=== PATIENT | male | born 1960 | race Caucasian/White ===

== ENCOUNTER 2018-09-16 19:21 | Emergency (ER) | payer MEDICAID ==
[~2018-09-16] VITALS: Ht 193 cm; Wt 100.0 kg
[2018-09-16 22:26] LABS: BASOPHILS % 1.3 % (0.0-2.0); EOSINOPHILS % 3.2 % (0.0-5.0); HEMATOCRIT. 42.8 % (42.0-52.0); HEMOGLOBIN. 14.8 g/dL (14.0-18.0); MEAN CORPUSCULAR HEMOGLOBIN 32.9 pg (28.0-32.0); MEAN CORPUSCULAR VOLUME 95.5 fL (80.0-94.0); MEAN PLATELET VOLUME 7.6 fl (7.4-10.4); MONOCYTES % 13.4 % (2.0-8.0); NEUTROPHILS % 51.1 % (40.0-76.0); PLATELET 251 x1000/uL (130-400); RED BLOOD CELL COUNT 4.48 mill/uL (4.7-6.1); RED CELL DISTRIBUTION WIDTH 14.3 % (11.6-14.6)
[2018-09-16 22:29] LABS: CHLORIDE 106 mEq/L (98-107)
[2018-09-16 23:48] VITALS: BP 142/86
== END 2018-09-16 23:49 | disposition home or self-care (01) ==
LOC: ER 19:21
DX: Z00.00 Encounter for general adult medical examination without abnormal findings (principal); I48.91 Unspecified atrial fibrillation; F12.10 Cannabis abuse, uncomplicated; F17.210 Nicotine dependence, cigarettes, uncomplicated
CPT/HCPCS: 36415; 80048; 83735; 84484; 93005; 99284

== ENCOUNTER 2018-12-16 02:16 | Inpatient (IN) | payer MEDICAID ==
[~2018-12-16] VITALS: Ht 193 cm; Wt 96.2 kg
[2018-12-16] MEDS ORDERED: ATOR-2 PO (02:30)
[2018-12-16] MEDS ORDERED: CARV12.545 PO (02:30)
[2018-12-16] MEDS ORDERED: ASPI-1393 PO (02:30)
[2018-12-16] MEDS ORDERED: RIVA20TA PO (02:30)
[2018-12-16] MEDS ORDERED: SACU1TAB PO (02:30)
[2018-12-16] MEDS ORDERED: LISI2.5T47 PO (02:33)
[2018-12-16] MEDS ORDERED: NORT25CA PO (02:33)
[2018-12-16] MEDS ORDERED: ASPIRIN 81MG TABLET PO ONE (03:15)
[2018-12-16] MEDS ORDERED: FUROSEMIDE 40MG/4ML VIAL IVP ONE (03:15)
[2018-12-16] MEDS ORDERED: NITROGLYCERIN OINT 1GM/INCH UDPKT TD ONE (03:15)
[2018-12-16 04:00] LABS: BASOPHILS % 0.6 % (0.0-2.0); EOSINOPHILS % 3.4 % (0.0-5.0); HEMOGLOBIN. 13.2 g/dL (14.0-18.0); LYMPHOCYTES % 9.1 % (20.0-50.0); MEAN CORPUSCULAR HEMOGLOBIN 33.2 pg (28.0-32.0); MEAN CORPUSCULAR VOLUME 98.1 fL (80.0-94.0); MONOCYTES % 13.5 % (2.0-8.0); NEUTROPHILS % 73.4 % (40.0-76.0); PLATELET 183 x1000/uL (130-400); RED BLOOD CELL COUNT 3.97 mill/uL (4.7-6.1)
[2018-12-16 04:03] LABS: CHLORIDE 108 mEq/L (98-107)
[2018-12-16] MEDS ORDERED: AZITHROMYCIN 500 MG in DEXT 5% WATER 250 ML IV ONE (05:45)
[2018-12-16] MEDS ORDERED: CEFTRIAXONE 1 G PREMIX 50 ML IV ONE (05:45)
[2018-12-16 07:41] LABS: *BARBITURATES SCREEN URINE NEGATIVE (NEGATIVE); *BENZODIAZEPINES SCREEN URINE NEGATIVE (NEGATIVE)
[2018-12-16 07:42] LABS: *AMPHETAMINES SCREEN URINE NEGATIVE (NEGATIVE); *COCAINE SCREEN URINE NEGATIVE (NEGATIVE); METHADONE URINE SCREEN NEGATIVE (NEGATIVE); OPIATES URINE SCREEN NEGATIVE (NEGATIVE); PHENCYCLIDINE URINE SCREEN NEGATIVE (NEGATIVE)
[2018-12-16 07:43] LABS: CANNABINOID URINE SCREEN NEGATIVE (NEGATIVE)
[2018-12-16 08:00] VITALS: BP 130/86
[2018-12-16 09:25] VITALS: BP 97/72
[2018-12-16] MEDS ORDERED: ACET-2853 PO (09:56)
[2018-12-16] MEDS ORDERED: ONDANSETRON HCL 4MG/2ML INJ IV PRN (10:30)
[2018-12-16] MEDS: ACETAMINOPHEN 325MG TABLET PO PRN ×2 (11:10→21:07)
[2018-12-16] MEDS: FUROSEMIDE 40MG/4ML VIAL IVP SCH (11:10)
[2018-12-16 12:00] VITALS: BP 105/67
[2018-12-16] MEDS ORDERED: ENOXAPARIN 40MG/0.4ML SYR SUBCUT SCH (12:00)
[2018-12-16] MEDS ORDERED: IPRATROPIUM/ALBUTEROL 0.5-3(2.5)MG/3ML NEB HHN PRN (12:30)
[2018-12-16] MEDS: GUAIFENESIN 600MG ER TABLET PO SCH ×2 (12:38→21:02)
[2018-12-16] MEDS ORDERED: NON FORMULARY PATIENT HOME MED XX SCH (12:45)
[2018-12-16 13:39] LABS: CLARITY URINE CLEAR (CLEAR); COLOR URINE YELLOW (YELLOW); KETONES URINE NEGATIVE (NEGATIVE); LEUKOCYTE ESTERASE URINE NEGATIVE (NEGATIVE); NITRITE URINE NEGATIVE (NEGATIVE); OCCULT BLOOD URINE NEGATIVE (NEGATIVE); PROTEIN URINE NEGATIVE (NEGATIVE); SPECIFIC GRAVITY URINE 1.009 (1.005-1.030)
[2018-12-16] MEDS: CARVEDILOL 6.25 MG TABLET PO SCH ×2 (13:55→21:01)
[2018-12-16 16:00] VITALS: BP 148/88
[2018-12-16] MEDS: RIVAROXABAN 20 MG TABLET PO SCH (17:13)
[2018-12-16] MEDS: IPRATROPIUM/ALBUTEROL 0.5-3(2.5)MG/3ML NEB HHN SCH ×2 (17:17→20:07)
[2018-12-16] MEDS: ACETYLCYSTEINE 100MG/ML 10% VIAL 4ML INH SCH (17:18)
[2018-12-16 20:00] VITALS: BP 120/86
[2018-12-16] MEDS: ATORVASTATIN CALCIUM 40MG TABLET PO SCH (21:02)
[2018-12-16] MEDS: SACUBITRIL/VALSARTAN 24/26 TAB PO SCH (21:02)
[2018-12-16] MEDS: ALPRAZOLAM 0.5 MG TABLET PO PRN (21:02)
[2018-12-17] VITALS: BP 124/79
[2018-12-17] MEDS: ACETYLCYSTEINE 100MG/ML 10% VIAL 4ML INH SCH ×3 (00:15→16:16)
[2018-12-17] MEDS: IPRATROPIUM/ALBUTEROL 0.5-3(2.5)MG/3ML NEB HHN SCH ×5 (00:15→20:47)
[2018-12-17 04:00] VITALS: BP 122/86
[2018-12-17] MEDS: ALPRAZOLAM 0.5 MG TABLET PO PRN ×2 (05:39→21:15)
[2018-12-17] MEDS: CEFTRIAXONE 1 G PREMIX 50 ML IV SCH (05:40)
[2018-12-17] MEDS: AZITHROMYCIN 500 MG in DEXT 5% WATER 250 ML IV SCH (05:40)
[2018-12-17 07:16] LABS: HEMATOCRIT. 44.2 % (42.0-52.0); HEMOGLOBIN. 15.2 g/dL (14.0-18.0); MEAN CORPUSCULAR HEMOGLOBIN 33.8 pg (28.0-32.0); MEAN CORPUSCULAR VOLUME 98.1 fL (80.0-94.0); MEAN PLATELET VOLUME 8.6 fl (7.4-10.4); PLATELET 196 x1000/uL (130-400); RED BLOOD CELL COUNT 4.51 mill/uL (4.7-6.1); RED CELL DISTRIBUTION WIDTH 14.8 % (11.6-14.6)
[2018-12-17 07:30] LABS: CHLORIDE 101 mEq/L (98-107)
[2018-12-17 07:36] LABS: LDL CHOLESTEROL 77 mg/dL (5-100)
[2018-12-17 07:38] LABS: HDL CHOLESTEROL 73 mg/dL (40-59)
[2018-12-17 08:00] VITALS: BP 102/70
[2018-12-17] MEDS: ASPIRIN 81MG TABLET PO SCH (08:36)
[2018-12-17] MEDS: GUAIFENESIN 600MG ER TABLET PO SCH ×2 (08:36→20:47)
[2018-12-17] MEDS: SACUBITRIL/VALSARTAN 24/26 TAB PO SCH ×2 (08:36→20:45)
[2018-12-17] MEDS: FUROSEMIDE 40MG/4ML VIAL IVP SCH (08:36)
[2018-12-17] MEDS: CARVEDILOL 12.5MG TABLET PO SCH ×2 (08:36→20:47)
[2018-12-17 11:43] LABS: PLATELET ESTIMATE NORMAL
[2018-12-17 12:00] VITALS: BP 98/86
[2018-12-17 16:00] VITALS: BP 100/64
[2018-12-17] MEDS ORDERED: BENZONATATE 100MG CAPSULE PO PRN (16:00)
[2018-12-17] MEDS: RIVAROXABAN 20 MG TABLET PO SCH (17:26)
[2018-12-17 20:00] VITALS: BP 102/43
[2018-12-17] MEDS: ATORVASTATIN CALCIUM 40MG TABLET PO SCH (20:47)
[2018-12-18] VITALS: BP 106/56
[2018-12-18] MEDS: ACETYLCYSTEINE 100MG/ML 10% VIAL 4ML INH SCH ×3 (00:53→15:46)
[2018-12-18] MEDS: IPRATROPIUM/ALBUTEROL 0.5-3(2.5)MG/3ML NEB HHN SCH ×6 (00:53→20:00)
[2018-12-18 04:00] VITALS: BP 103/59
[2018-12-18] MEDS: CEFTRIAXONE 1 G PREMIX 50 ML IV SCH (05:22)
[2018-12-18] MEDS: AZITHROMYCIN 500 MG in DEXT 5% WATER 250 ML IV SCH (06:31)
[2018-12-18 07:34] LABS: HEMATOCRIT. 44.7 % (42.0-52.0); HEMOGLOBIN. 15.3 g/dL (14.0-18.0); MEAN CORPUSCULAR HEMOGLOBIN 33.6 pg (28.0-32.0); MEAN CORPUSCULAR VOLUME 97.9 fL (80.0-94.0); MEAN PLATELET VOLUME 8.4 fl (7.4-10.4); PLATELET 200 x1000/uL (130-400); RED BLOOD CELL COUNT 4.57 mill/uL (4.7-6.1); RED CELL DISTRIBUTION WIDTH 14.9 % (11.6-14.6)
[2018-12-18 07:55] LABS: CHLORIDE 102 mEq/L (98-107)
[2018-12-18 08:00] VITALS: BP 87/64
[2018-12-18] MEDS: SACUBITRIL/VALSARTAN 24/26 TAB PO SCH ×2 (08:57→22:11)
[2018-12-18] MEDS: GUAIFENESIN 600MG ER TABLET PO SCH ×2 (08:57→22:11)
[2018-12-18] MEDS: ASPIRIN 81MG TABLET PO SCH (08:57)
[2018-12-18] MEDS: CARVEDILOL 12.5MG TABLET PO SCH ×2 (08:58→22:13)
[2018-12-18] MEDS: FUROSEMIDE 40MG/4ML VIAL IVP SCH (09:00)
[2018-12-18 09:37] LABS: PLATELET ESTIMATE NORMAL
[2018-12-18 12:00] VITALS: BP 110/60
[2018-12-18 16:00] VITALS: BP 107/69
[2018-12-18] MEDS: RIVAROXABAN 20 MG TABLET PO SCH (17:14)
[2018-12-18 20:00] VITALS: BP 110/77
[2018-12-18] MEDS: ATORVASTATIN CALCIUM 40MG TABLET PO SCH (22:11)
[2018-12-19] VITALS: BP 107/83
[2018-12-19] MEDS: IPRATROPIUM/ALBUTEROL 0.5-3(2.5)MG/3ML NEB HHN SCH ×3 (01:19→09:25)
[2018-12-19] MEDS: ACETYLCYSTEINE 100MG/ML 10% VIAL 4ML INH SCH ×2 (01:20→09:25)
[2018-12-19 04:00] VITALS: BP 101/72
[2018-12-19] MEDS: ALPRAZOLAM 0.5 MG TABLET PO PRN (04:09)
[2018-12-19 06:25] LABS: HEMATOCRIT. 45.6 % (42.0-52.0); HEMOGLOBIN. 15.4 g/dL (14.0-18.0); MEAN CORPUSCULAR VOLUME 97.8 fL (80.0-94.0); MEAN PLATELET VOLUME 8.7 fl (7.4-10.4); PLATELET 208 x1000/uL (130-400); RED BLOOD CELL COUNT 4.66 mill/uL (4.7-6.1); RED CELL DISTRIBUTION WIDTH 14.9 % (11.6-14.6)
[2018-12-19 06:38] LABS: CHLORIDE 104 mEq/L (98-107)
[2018-12-19 08:00] VITALS: BP 113/77
[2018-12-19] MEDS: CARVEDILOL 12.5MG TABLET PO SCH (08:20)
[2018-12-19] MEDS: SACUBITRIL/VALSARTAN 24/26 TAB PO SCH (08:20)
[2018-12-19] MEDS: ASPIRIN 81MG TABLET PO SCH (08:20)
[2018-12-19] MEDS: GUAIFENESIN 600MG ER TABLET PO SCH (08:20)
[2018-12-19] MEDS ORDERED: AZITHROMYCIN 500 MG TABLET PO SCH (09:00)
[2018-12-19 09:59] LABS: PLATELET ESTIMATE NORMAL
[2018-12-19] MEDS ORDERED: METHYLPREDNISOLONE SOD SUCC 40 MG/ML VIAL IV NR (11:00)
[2018-12-19 12:00] VITALS: BP 108/84
[2018-12-19 12:31] VITALS: BP 108/84
== END 2018-12-19 14:05 | disposition home or self-care (01) | DRG 140 ==
LOC: ER 02:16 → 5WST 05:44 → EDBEDREQTM 05:46 → EDBEDREQ 05:46 → ENRESERV 07:23
PROVIDERS: ADMIT Internal Medicine; ATTEND Internal Medicine
DX: J44.0 Chronic obstructive pulmonary disease with (acute) lower respiratory infection (principal); J96.00 Acute respiratory failure, unspecified whether with hypoxia or hypercapnia; I50.43 Acute on chronic combined systolic (congestive) and diastolic (congestive) heart failure; J18.9 Pneumonia, unspecified organism; I95.9 Hypotension, unspecified; E87.8 Other disorders of electrolyte and fluid balance, not elsewhere classified; R65.10 Systemic inflammatory response syndrome (SIRS) of non-infectious origin without acute organ dysfunction; I11.0 Hypertensive heart disease with heart failure; I48.2 Chronic atrial fibrillation; Z79.01 Long term (current) use of anticoagulants; I83.93 Asymptomatic varicose veins of bilateral lower extremities; G51.0 Bell's palsy; I87.2 Venous insufficiency (chronic) (peripheral); J98.11 Atelectasis; I25.5 Ischemic cardiomyopathy; D64.9 Anemia, unspecified; E78.5 Hyperlipidemia, unspecified; F17.200 Nicotine dependence, unspecified, uncomplicated; F41.9 Anxiety disorder, unspecified; I25.10 Atherosclerotic heart disease of native coronary artery without angina pectoris; I25.2 Old myocardial infarction; Z95.5 Presence of coronary angioplasty implant and graft; Z82.49 Family history of ischemic heart disease and other diseases of the circulatory system; Z82.3 Family history of stroke; Z71.6 Tobacco abuse counseling
CPT/HCPCS: 36415; 71045; 80048; 80061; 80305; 81003; 83605; 83735; 83880; 84145; 84443; 84484; 93005; 93306; 94640; 94667; 96374; 97161; 99285; J0456; J0696; J1650; J1940; J2920; J7060; J7608; J7620

== ENCOUNTER 2019-04-16 14:01 | Emergency (ER) | payer MEDICAID ==
[~2019-04-16] VITALS: Ht 193 cm; Wt 100.0 kg
[~2019-04-16 14:01] MED LIST: ACET-2853 PO; ASPI-1393 PO; ATOR-2 PO; CARV12.545 PO; NORT25CA PO; RIVA20TA PO; SACU1TAB PO
[2019-04-16] MEDS ORDERED: TRAMADOL 50MG TABLET PO ONE (14:30)
[2019-04-16 16:46] VITALS: BP 129/82
[2019-04-16] MEDS ORDERED: RIVAROXABAN 10 MG TABLET PO SCH (17:00)
== END 2019-04-16 16:54 | disposition home or self-care (01) ==
LOC: ER 14:01
DX: I82.812 Embolism and thrombosis of superficial veins of left lower extremity (principal); I11.0 Hypertensive heart disease with heart failure; I50.9 Heart failure, unspecified; I48.91 Unspecified atrial fibrillation; Z79.01 Long term (current) use of anticoagulants
CPT/HCPCS: 93970; 99284; Z7610

== ENCOUNTER 2019-05-21 11:18 | Emergency (ER) | payer MEDICAID ==
[~2019-05-21] VITALS: Ht 193 cm; Wt 100.0 kg
[~2019-05-21 11:18] MED LIST changes: -ACET-2853 PO; +ACET650T37 PO; -ASPI-1393 PO; +ASPI-1497 PO
[2019-05-21 12:22] VITALS: BP 149/77
== END 2019-05-21 13:31 | disposition home or self-care (01) ==
LOC: ER 11:18
DX: I83.92 Asymptomatic varicose veins of left lower extremity (principal); S80.02XA Contusion of left knee, initial encounter; W22.8XXA Striking against or struck by other objects, initial encounter; Y93.89 Activity, other specified; Y92.39 Other specified sports and athletic area as the place of occurrence of the external cause; R03.0 Elevated blood-pressure reading, without diagnosis of hypertension; I50.9 Heart failure, unspecified; I48.91 Unspecified atrial fibrillation; Z79.01 Long term (current) use of anticoagulants; Z79.82 Long term (current) use of aspirin; Z79.899 Other long term (current) drug therapy
CPT/HCPCS: 99282

== ENCOUNTER 2019-11-14 01:18 | Inpatient (IN) | payer MEDICAID ==
[~2019-11-14] VITALS: Ht 193 cm; Wt 91.6 kg
[2019-11-14] MEDS ORDERED: FUROSEMIDE 40MG/4ML VIAL IV ONE (03:15)
[2019-11-14 03:20] LABS: HEMATOCRIT. 48.3 % (42.0-52.0); HEMOGLOBIN. 16.8 g/dL (14.0-18.0); MEAN CORPUSCULAR VOLUME 100.9 fL (80.0-94.0); MEAN PLATELET VOLUME 8.1 fl (7.4-10.4); PLATELET 185 x1000/uL (130-400); RED BLOOD CELL COUNT 4.79 mill/uL (4.7-6.1); RED CELL DISTRIBUTION WIDTH 15.6 % (11.6-14.6)
[2019-11-14 03:30] LABS: CHLORIDE 98 mEq/L (98-107)
[2019-11-14 05:00] LABS: PLATELET ESTIMATE NORMAL
[2019-11-14] MEDS: METOPROLOL TARTRATE 5MG/5ML VIAL IV SCH ×3 (05:27→05:42)
[2019-11-14] MEDS ORDERED: ACETAMINOPHEN 325MG TABLET PO PRN (06:45)
[2019-11-14] MEDS ORDERED: IPRATROPIUM/ALBUTEROL 0.5-3(2.5)MG/3ML NEB ORI PRN (06:45)
[2019-11-14] MEDS ORDERED: GUAIFENESIN 200MG/10ML SUGAR FREE UDC PO PRN (06:45)
[2019-11-14] MEDS ORDERED: ONDANSETRON HCL 4MG/2ML INJ IV PRN (06:45)
[2019-11-14] MEDS ORDERED: KETOROLAC 15MG/ML VIAL IV PRN (06:45)
[2019-11-14] MEDS ORDERED: NITROGLYCERIN 0.4MG TABLET SL SL PRN (06:45)
[2019-11-14] MEDS ORDERED: MAGNESIUM/ALUMINUM HYDROXIDE/SIMETHICONE 30ML UDC PO PRN (06:45)
[2019-11-14] MEDS ORDERED: CLONIDINE 0.1MG TABLET PO PRN (06:45)
[2019-11-14] MEDS ORDERED: DOCUSATE SODIUM 100MG CAPSULE PO PRN (06:45)
[2019-11-14 07:01] LABS: ETHANOL BLOOD 12 mg/dL
[2019-11-14 07:03] LABS: TOTAL IRON BINDING CAPACITY 285 ug/dL (250-450)
[2019-11-14 07:20] LABS: FOLIC ACID (FOLATE) SERUM 10.3 ng/mL (>5.38)
[2019-11-14] MEDS ORDERED: FUROSEMIDE 40MG/4ML VIAL IVP SCH (08:00)
[2019-11-14] MEDS: ASPIRIN 325MG EC TABLET PO SCH (08:54)
[2019-11-14] MEDS: FAMOTIDINE 20MG TABLET PO SCH ×2 (09:00→21:21)
[2019-11-14] MEDS: GUAIFENESIN/DM 600MG/30MG ER TAB 12HR PO SCH ×2 (09:00→21:21)
[2019-11-14] MEDS: ZINC SULFATE 220 MG ( 50 ) CAPSULE PO SCH (09:00)
[2019-11-14] MEDS: ASCORBIC ACID 500 MG TABLET PO SCH ×2 (09:00→21:22)
[2019-11-14 09:30] LABS: *AMPHETAMINES SCREEN URINE NEGATIVE (NEGATIVE); *BARBITURATES SCREEN URINE NEGATIVE (NEGATIVE); *BENZODIAZEPINES SCREEN URINE NEGATIVE (NEGATIVE); *COCAINE SCREEN URINE NEGATIVE (NEGATIVE)
[2019-11-14 09:31] LABS: CANNABINOID URINE SCREEN PRESUMTIVE POSITIVE (NEGATIVE); METHADONE URINE SCREEN NEGATIVE (NEGATIVE); OPIATES URINE SCREEN NEGATIVE (NEGATIVE); PHENCYCLIDINE URINE SCREEN NEGATIVE (NEGATIVE)
[2019-11-14] MEDS: CARVEDILOL 6.25 MG TABLET PO SCH ×2 (10:30→21:22)
[2019-11-14] MEDS: DILTIAZEM HCL 60MG TABLET PO SCH ×2 (12:10→17:42)
[2019-11-14] MEDS: NITROGLYCERIN OINT 1GM/INCH UDPKT TD SCH ×2 (12:40→21:21)
[2019-11-14 14:42] LABS: CREATINE KINASE MB FRACTION 2.6 ng/mL (0.5-3.6)
[2019-11-14 15:40] VITALS: BP_SYST 116; BP_SYST 148; BP_DIAS 68; BP_DIAS 82
[2019-11-14] MEDS ORDERED: CARV3.1242 PO (15:42)
[2019-11-14 15:43] VITALS: BP 116/82
[2019-11-14] MEDS: RIVAROXABAN 20 MG TABLET PO SCH (17:41)
[2019-11-14] MEDS: FUROSEMIDE 100MG/10ML VIAL IV SCH (17:42)
[2019-11-14 20:00] VITALS: BP 118/79
[2019-11-14] MEDS: ZOLPIDEM TARTRATE 5MG TABLET PO PRN (21:21)
[2019-11-15] VITALS: BP 120/99
[2019-11-15] MEDS: DILTIAZEM HCL 60MG TABLET PO SCH ×4 (00:24→18:00)
[2019-11-15 00:41] LABS: CREATINE KINASE MB FRACTION 2.5 ng/mL (0.5-3.6)
[2019-11-15 04:00] VITALS: BP 105/60
[2019-11-15] MEDS: FUROSEMIDE 100MG/10ML VIAL IV SCH ×2 (05:48→18:06)
[2019-11-15] MEDS: NITROGLYCERIN OINT 1GM/INCH UDPKT TD SCH ×3 (05:56→22:00)
[2019-11-15 07:18] LABS: CHLORIDE 92 mEq/L (98-107)
[2019-11-15 07:31] LABS: HEMATOCRIT. 47.3 % (42.0-52.0); HEMOGLOBIN. 16.5 g/dL (14.0-18.0); MEAN CORPUSCULAR HEMOGLOBIN 35.3 pg (28.0-32.0); MEAN CORPUSCULAR VOLUME 101.5 fL (80.0-94.0); MEAN PLATELET VOLUME 8.8 fl (7.4-10.4); PLATELET 181 x1000/uL (130-400); RED BLOOD CELL COUNT 4.66 mill/uL (4.7-6.1); RED CELL DISTRIBUTION WIDTH 15.7 % (11.6-14.6)
[2019-11-15 07:37] LABS: PHOSPHORUS 2.9 mg/dL (2.5-4.9)
[2019-11-15 08:00] VITALS: BP 102/76
[2019-11-15] MEDS: GUAIFENESIN/DM 600MG/30MG ER TAB 12HR PO SCH ×2 (08:14→20:49)
[2019-11-15] MEDS: ASCORBIC ACID 500 MG TABLET PO SCH ×2 (08:15→20:49)
[2019-11-15] MEDS: ASPIRIN 325MG EC TABLET PO SCH (08:15)
[2019-11-15] MEDS: ZINC SULFATE 220 MG ( 50 ) CAPSULE PO SCH (08:15)
[2019-11-15] MEDS: FAMOTIDINE 20MG TABLET PO SCH ×2 (08:15→20:49)
[2019-11-15] MEDS: CARVEDILOL 6.25 MG TABLET PO SCH ×2 (08:16→20:49)
[2019-11-15] MEDS: POTASSIUM CHLORIDE 10MEQ TABLET SR PO SCH (08:16)
[2019-11-15 12:00] VITALS: BP 132/92
[2019-11-15 13:28] LABS: PLATELET ESTIMATE NORMAL
[2019-11-15 16:00] VITALS: BP 102/69
[2019-11-15] MEDS: RIVAROXABAN 20 MG TABLET PO SCH (18:05)
[2019-11-15 20:31] VITALS: BP 114/78
[2019-11-15] MEDS: ZOLPIDEM TARTRATE 5MG TABLET PO PRN (20:49)
[2019-11-16] VITALS: BP 91/54
[2019-11-16] MEDS: DILTIAZEM HCL 60MG TABLET PO SCH ×4 (00:46→17:24)
[2019-11-16 04:00] VITALS: BP 118/73
[2019-11-16] MEDS: ACETAMINOPHEN 325MG TABLET PO PRN ×2 (04:49→20:05)
[2019-11-16] MEDS: FUROSEMIDE 100MG/10ML VIAL IV SCH (06:09)
[2019-11-16] MEDS: NITROGLYCERIN OINT 1GM/INCH UDPKT TD SCH ×3 (06:44→20:05)
[2019-11-16 07:25] LABS: HEMOGLOBIN. 16.2 g/dL (14.0-18.0); MEAN CORPUSCULAR VOLUME 101.3 fL (80.0-94.0); MEAN PLATELET VOLUME 9.2 fl (7.4-10.4); PLATELET 171 x1000/uL (130-400); RED BLOOD CELL COUNT 4.63 mill/uL (4.7-6.1); RED CELL DISTRIBUTION WIDTH 15.2 % (11.6-14.6)
[2019-11-16 07:42] LABS: CHLORIDE 93 mEq/L (98-107)
[2019-11-16 08:00] VITALS: BP 98/73
[2019-11-16] MEDS ORDERED: POTASSIUM CHLORIDE 20MEQ TABLET SR PO SCH (09:00)
[2019-11-16] MEDS: CARVEDILOL 6.25 MG TABLET PO SCH ×2 (09:00→20:11)
[2019-11-16] MEDS: POTASSIUM CHLORIDE 10MEQ TABLET SR PO SCH (09:19)
[2019-11-16] MEDS: GUAIFENESIN/DM 600MG/30MG ER TAB 12HR PO SCH ×2 (09:19→20:04)
[2019-11-16] MEDS: ZINC SULFATE 220 MG ( 50 ) CAPSULE PO SCH (09:19)
[2019-11-16] MEDS: ASCORBIC ACID 500 MG TABLET PO SCH ×2 (09:19→20:04)
[2019-11-16] MEDS: FAMOTIDINE 20MG TABLET PO SCH ×2 (09:19→20:04)
[2019-11-16] MEDS: ASPIRIN 325MG EC TABLET PO SCH (09:19)
[2019-11-16 12:00] VITALS: BP 94/71
[2019-11-16 13:46] LABS: NUCLEATED RED BLOOD CELLS 1 /100 WBC
[2019-11-16 13:47] LABS: PLATELET ESTIMATE NORMAL
[2019-11-16 16:00] VITALS: BP 100/60
[2019-11-16] MEDS: RIVAROXABAN 20 MG TABLET PO SCH (16:48)
[2019-11-16] MEDS: FUROSEMIDE 20MG TABLET PO SCH (16:48)
[2019-11-16 19:53] VITALS: BP 106/75
[2019-11-16] MEDS: ZOLPIDEM TARTRATE 5MG TABLET PO PRN (21:39)
[2019-11-17 00:05] VITALS: BP 85/63
[2019-11-17] MEDS: ACETAMINOPHEN 325MG TABLET PO PRN (04:15)
[2019-11-17 04:31] VITALS: BP 92/63
[2019-11-17] MEDS: DILTIAZEM HCL 60MG TABLET PO SCH ×5 (06:00→23:10)
[2019-11-17] MEDS: NITROGLYCERIN OINT 1GM/INCH UDPKT TD SCH ×3 (06:11→22:00)
[2019-11-17 07:02] VITALS: BP 91/64
[2019-11-17] MEDS: CARVEDILOL 6.25 MG TABLET PO SCH ×2 (08:55→20:44)
[2019-11-17] MEDS: FUROSEMIDE 20MG TABLET PO SCH ×2 (08:55→17:10)
[2019-11-17] MEDS: ZINC SULFATE 220 MG ( 50 ) CAPSULE PO SCH (09:00)
[2019-11-17] MEDS: POTASSIUM CHLORIDE 10MEQ TABLET SR PO SCH (09:00)
[2019-11-17] MEDS: FAMOTIDINE 20MG TABLET PO SCH ×2 (09:00→21:00)
[2019-11-17] MEDS: ASCORBIC ACID 500 MG TABLET PO SCH ×2 (09:00→20:44)
[2019-11-17] MEDS: ASPIRIN 325MG EC TABLET PO SCH (09:00)
[2019-11-17] MEDS: GUAIFENESIN/DM 600MG/30MG ER TAB 12HR PO SCH ×2 (09:00→20:44)
[2019-11-17] MEDS: RIVAROXABAN 20 MG TABLET PO SCH (17:09)
[2019-11-17 20:00] VITALS: BP 126/64
[2019-11-18 00:52] VITALS: BP 130/73
[2019-11-18 04:00] VITALS: BP 104/69
[2019-11-18] MEDS: DILTIAZEM HCL 60MG TABLET PO SCH ×2 (05:01→12:00)
[2019-11-18] MEDS: NITROGLYCERIN OINT 1GM/INCH UDPKT TD SCH ×2 (05:02→14:00)
[2019-11-18 08:00] VITALS: BP 102/71
[2019-11-18] MEDS: CARVEDILOL 6.25 MG TABLET PO SCH (09:00)
[2019-11-18] MEDS: ZINC SULFATE 220 MG ( 50 ) CAPSULE PO SCH (09:34)
[2019-11-18] MEDS: ASCORBIC ACID 500 MG TABLET PO SCH (09:34)
[2019-11-18] MEDS: GUAIFENESIN/DM 600MG/30MG ER TAB 12HR PO SCH (09:35)
[2019-11-18] MEDS: FUROSEMIDE 20MG TABLET PO SCH (09:35)
[2019-11-18] MEDS: POTASSIUM CHLORIDE 10MEQ TABLET SR PO SCH (09:35)
[2019-11-18] MEDS: ASPIRIN 325MG EC TABLET PO SCH (09:35)
[2019-11-18] MEDS ORDERED: FAMOTIDINE 10MG TABLET PO SCH (10:00)
[2019-11-18 12:00] VITALS: BP 107/74
[2019-11-18 16:00] VITALS: BP 116/93
[2019-11-18 16:09] VITALS: BP 116/93
== END 2019-11-18 16:35 | disposition home or self-care (01) | DRG 194 ==
LOC: ER 01:18 → 6WST 05:02 → EDBEDREQ 05:06 → ENRESERV 13:48
PROVIDERS: ADMIT Internal Medicine; ATTEND Internal Medicine
DX: I11.0 Hypertensive heart disease with heart failure (principal); I50.43 Acute on chronic combined systolic (congestive) and diastolic (congestive) heart failure; J96.91 Respiratory failure, unspecified with hypoxia; E87.1 Hypo-osmolality and hyponatremia; F10.10 Alcohol abuse, uncomplicated; E78.5 Hyperlipidemia, unspecified; I25.10 Atherosclerotic heart disease of native coronary artery without angina pectoris; I48.20 Chronic atrial fibrillation, unspecified; F12.10 Cannabis abuse, uncomplicated; J44.9 Chronic obstructive pulmonary disease, unspecified; Z20.828 Contact with and (suspected) exposure to other viral communicable diseases; E87.6 Hypokalemia; E87.5 Hyperkalemia; I25.5 Ischemic cardiomyopathy; R74.0 Nonspecific elevation of levels of transaminase and lactic acid dehydrogenase [LDH]; Z86.73 Personal history of transient ischemic attack (TIA), and cerebral infarction without residual deficits; Z82.3 Family history of stroke; Z82.49 Family history of ischemic heart disease and other diseases of the circulatory system; Z79.01 Long term (current) use of anticoagulants; Z91.14 Patient's other noncompliance with medication regimen; I25.2 Old myocardial infarction; Z79.82 Long term (current) use of aspirin; Z79.899 Other long term (current) drug therapy; Z71.51 Drug abuse counseling and surveillance of drug abuser; Z71.41 Alcohol abuse counseling and surveillance of alcoholic; E80.6 Other disorders of bilirubin metabolism
CPT/HCPCS: 36415; 71045; 80048; 80053; 80305; 80320; 82550; 82553; 82607; 82746; 83036; 83540; 83550; 83735; 83880; 84100; 84484; 85025; 87070; 87635; 93005; 93306; 93970; 99285; J1885; J1940; J3490; G0480

== ENCOUNTER 2020-04-14 09:41 | Inpatient (IN) | payer MEDICAID ==
[~2020-04-14] VITALS: Ht 193 cm; Wt 106.6 kg
[~2020-04-14 09:41] MED LIST changes: +CARV3.1242 PO
[2020-04-14 10:26] LABS: HEMATOCRIT. 42.7 % (42.0-52.0); HEMOGLOBIN. 14.6 g/dL (14.0-18.0); MEAN CORPUSCULAR HEMOGLOBIN 36.9 pg (28.0-32.0); MEAN CORPUSCULAR VOLUME 107.7 fL (80.0-94.0); MEAN PLATELET VOLUME 10.3 fl (7.4-10.4); PLATELET 133 x1000/uL (130-400); RED BLOOD CELL COUNT 3.96 mill/uL (4.7-6.1); RED CELL DISTRIBUTION WIDTH 15.1 % (11.6-14.6)
[2020-04-14 10:29] LABS: CHLORIDE 99 mEq/L (98-107)
[2020-04-14] MEDS ORDERED: FUROSEMIDE 40MG/4ML VIAL IVP SCH (10:30)
[2020-04-14] MEDS ORDERED: MORPHINE SULFATE 4 MG/ML CPJ (NOT FOR IM USE) IV STA (10:40)
[2020-04-14] MEDS ORDERED: ONDANSETRON HCL 4MG/2ML INJ IV STA (10:40)
[2020-04-14] MEDS ORDERED: AMIODARONE HCL 150 MG in DEXT 5% WATER 100 ML IV ONE ×2 (10:45→11:45)
[2020-04-14] MEDS ORDERED: AMIODARONE HCL 900 MG in DEXT 5% WATER 482 ML IV PRN ×2 (11:45→12:00)
[2020-04-14] MEDS ORDERED: NITROGLYCERIN 0.4MG TABLET SL SL PRN (12:45)
[2020-04-14] MEDS ORDERED: ACETAMINOPHEN 325MG TABLET PO PRN ×2 (12:45)
[2020-04-14] MEDS ORDERED: GUAIFENESIN 200MG/10ML SUGAR FREE UDC PO PRN (12:45)
[2020-04-14] MEDS ORDERED: DOCUSATE SODIUM 100MG CAPSULE PO PRN (12:45)
[2020-04-14] MEDS ORDERED: MAGNESIUM/ALUMINUM HYDROXIDE/SIMETHICONE 30ML UDC PO PRN (12:45)
[2020-04-14] MEDS ORDERED: CLONIDINE 0.1MG TABLET PO PRN (12:45)
[2020-04-14] MEDS ORDERED: IPRATROPIUM/ALBUTEROL 0.5-3(2.5)MG/3ML NEB NEB PRN (12:45)
[2020-04-14] MEDS ORDERED: ONDANSETRON HCL 4MG/2ML INJ IV PRN (12:45)
[2020-04-14 13:05] LABS: PLATELET ESTIMATE NORMAL
[2020-04-14 13:10] LABS: *AMPHETAMINES SCREEN URINE NEGATIVE (NEGATIVE); CANNABINOID URINE SCREEN PRESUMTIVE POSITIVE (NEGATIVE); OPIATES URINE SCREEN PRESUMTIVE POSITIVE (NEGATIVE)
[2020-04-14 13:11] LABS: *BARBITURATES SCREEN URINE NEGATIVE (NEGATIVE); *BENZODIAZEPINES SCREEN URINE NEGATIVE (NEGATIVE); *COCAINE SCREEN URINE NEGATIVE (NEGATIVE)
[2020-04-14 13:14] LABS: METHADONE URINE SCREEN NEGATIVE (NEGATIVE)
[2020-04-14 13:15] LABS: PHENCYCLIDINE URINE SCREEN NEGATIVE (NEGATIVE)
[2020-04-14 13:45] LABS: HEPATITIS A AB IGM NEGATIVE (NEGATIVE)
[2020-04-14] MEDS ORDERED: DILTIAZEM HCL 5MG/ML 5ML VIAL IV NR (13:45)
[2020-04-14] MEDS ORDERED: DILTIAZEM HCL 125 MG in DEXT 5% WATER 100 ML IV SCH (14:00)
[2020-04-14] MEDS: DILTIAZEM HCL 125 MG in DEXT 5% WATER 100 ML IV SCH (14:06)
[2020-04-14 14:28] LABS: VITAMIN B12 SERUM 1146 pg/mL (211-911)
[2020-04-14 15:08] LABS: HEPATITIS B SURFACE ANTIGEN NEGATIVE
[2020-04-14 15:44] VITALS: BP 129/84
[2020-04-14 16:00] VITALS: BP 129/84
[2020-04-14] MEDS ORDERED: TRAM150C25 PO (16:12)
[2020-04-14] MEDS ORDERED: MELO-106 PO (16:13)
[2020-04-14] MEDS ORDERED: DILT240C94 PO (16:17)
[2020-04-14] MEDS ORDERED: LOSA25TA26 PO (16:19)
[2020-04-14] MEDS ORDERED: GABA-531 PO (16:19)
[2020-04-14] MEDS ORDERED: FAMO40TA7 PO (16:20)
[2020-04-14] MEDS ORDERED: GUAI400T11 PO (16:21)
[2020-04-14] MEDS ORDERED: BENZ100C86 MT (16:22)
[2020-04-14] MEDS ORDERED: CARV6.2548 MT (16:23)
[2020-04-14] MEDS ORDERED: FURO40TA5 MT (16:25)
[2020-04-14] MEDS: KETOROLAC 15MG/ML VIAL IV PRN (17:17)
[2020-04-14] MEDS: RIVAROXABAN 20 MG TABLET PO SCH (17:20)
[2020-04-14] MEDS: DILTIAZEM HCL 30MG TABLET PO SCH (17:21)
[2020-04-14 18:00] VITALS: BP 131/85
[2020-04-14] MEDS ORDERED: DILTIAZEM HCL 60MG TABLET PO SCH (18:00)
[2020-04-14] MEDS ORDERED: INFLUENZA VACCINE 05/PF 0.5 ML VIAL IM ONE (19:15)
[2020-04-14 20:00] VITALS: BP 111/72
[2020-04-14] MEDS: LORAZEPAM 0.5MG TABLET PO PRN (21:33)
[2020-04-14] MEDS: ASCORBIC ACID 500 MG TABLET PO SCH (21:33)
[2020-04-14 22:00] VITALS: BP 121/61
[2020-04-14 23:21] VITALS: BP 112/82
[2020-04-14] MEDS ORDERED: ACET650T37 PO (23:48)
[2020-04-15] VITALS (13 sets, daily range): BP systolic 103–144; BP diastolic 67–83
[2020-04-15 00:48] LABS: CREATINE KINASE MB FRACTION 2.6 ng/mL (0.5-3.6)
[2020-04-15] MEDS: DILTIAZEM HCL 30MG TABLET PO SCH ×4 (05:28→21:35)
[2020-04-15] MEDS ORDERED: *PATIENT'S OWN MEDICATION STORAGE XX SCH (06:00)
[2020-04-15 06:26] LABS: HEMATOCRIT. 39.1 % (42.0-52.0); HEMOGLOBIN. 13.4 g/dL (14.0-18.0); MEAN CORPUSCULAR HEMOGLOBIN 37.2 pg (28.0-32.0); MEAN CORPUSCULAR VOLUME 108.7 fL (80.0-94.0); MEAN PLATELET VOLUME 10.2 fl (7.4-10.4); PLATELET 114 x1000/uL (130-400); RED BLOOD CELL COUNT 3.59 mill/uL (4.7-6.1)
[2020-04-15 06:31] LABS: CHLORIDE 97 mEq/L (98-107)
[2020-04-15 06:40] LABS: PHOSPHORUS 5.2 mg/dL (2.5-4.9)
[2020-04-15] MEDS ORDERED: POTASSIUM CHLORIDE 20MEQ TABLET SR PO NR (09:15)
[2020-04-15] MEDS ORDERED: CARVEDILOL 6.25 MG TABLET PO NR (09:15)
[2020-04-15] MEDS ORDERED: DILTIAZEM HCL 5MG/ML 5ML VIAL IV PRN (09:15)
[2020-04-15] MEDS ORDERED: FUROSEMIDE 20MG TABLET PO SCH (09:15)
[2020-04-15] MEDS: SPIRONOLACTONE 25MG TABLET PO SCH ×2 (09:25→17:39)
[2020-04-15] MEDS: ASCORBIC ACID 500 MG TABLET PO SCH ×2 (09:25→20:21)
[2020-04-15] MEDS: ASPIRIN 81MG TABLET PO SCH (09:25)
[2020-04-15] MEDS: ZINC SULFATE 220 MG ( 50 ) CAPSULE PO SCH (09:25)
[2020-04-15] MEDS: FUROSEMIDE 40MG/4ML VIAL IVP SCH ×2 (09:27→21:33)
[2020-04-15] MEDS: KETOROLAC 15MG/ML VIAL IV PRN ×2 (09:27→21:34)
[2020-04-15 12:43] LABS: PLATELET ESTIMATE DECREASED
[2020-04-15] MEDS: DILTIAZEM HCL 125 MG in DEXT 5% WATER 100 ML IV SCH (14:59)
[2020-04-15] MEDS: RIVAROXABAN 20 MG TABLET PO SCH (17:39)
[2020-04-15] MEDS: CARVEDILOL 6.25 MG TABLET PO SCH (20:22)
[2020-04-15] MEDS: ZOLPIDEM TARTRATE 5MG TABLET PO PRN (21:36)
[2020-04-16] VITALS (12 sets, daily range): BP systolic 98–141; BP diastolic 52–94
[2020-04-16] MEDS: DILTIAZEM HCL 30MG TABLET PO SCH (06:29)
[2020-04-16] MEDS: SPIRONOLACTONE 25MG TABLET PO SCH ×2 (06:30→18:13)
[2020-04-16 07:31] LABS: HEMATOCRIT. 39.4 % (42.0-52.0); HEMOGLOBIN. 13.5 g/dL (14.0-18.0); MEAN CORPUSCULAR VOLUME 108.4 fL (80.0-94.0); MEAN PLATELET VOLUME 10.6 fl (7.4-10.4); PLATELET 119 x1000/uL (130-400); RED BLOOD CELL COUNT 3.64 mill/uL (4.7-6.1)
[2020-04-16 08:49] LABS: CHLORIDE 97 mEq/L (98-107)
[2020-04-16 08:56] LABS: PHOSPHORUS 4.4 mg/dL (2.5-4.9)
[2020-04-16] MEDS: POTASSIUM CHLORIDE 20MEQ TABLET SR PO SCH (09:25)
[2020-04-16] MEDS: ASPIRIN 81MG TABLET PO SCH (09:25)
[2020-04-16] MEDS: LORAZEPAM 0.5MG TABLET PO PRN (09:25)
[2020-04-16] MEDS: CARVEDILOL 6.25 MG TABLET PO SCH (09:28)
[2020-04-16] MEDS: ASCORBIC ACID 500 MG TABLET PO SCH ×2 (09:28→22:02)
[2020-04-16] MEDS: ZINC SULFATE 220 MG ( 50 ) CAPSULE PO SCH (09:28)
[2020-04-16] MEDS: FUROSEMIDE 40MG/4ML VIAL IVP SCH ×2 (09:35→22:01)
[2020-04-16 10:29] LABS: PLATELET ESTIMATE SLIGHTLY DECREASED
[2020-04-16] MEDS ORDERED: DILTIAZEM HCL 125 MG in DEXT 5% WATER 100 ML IV SCH (11:00)
[2020-04-16] MEDS: KETOROLAC 15MG/ML VIAL IV PRN ×2 (11:12→22:00)
[2020-04-16] MEDS ORDERED: MAGNESIUM 2 G PREMIX 50 ML IV NR (12:30)
[2020-04-16] MEDS: DILTIAZEM HCL 90MG TABLET PO SCH ×2 (14:43→22:01)
[2020-04-16] MEDS: MAGNESIUM OXIDE 400MG TABLET PO SCH (18:13)
[2020-04-16] MEDS: RIVAROXABAN 20 MG TABLET PO SCH (18:13)
[2020-04-16] MEDS: CARVEDILOL 12.5MG TABLET PO SCH (22:08)
[2020-04-16] MEDS: ZOLPIDEM TARTRATE 5MG TABLET PO PRN (23:56)
[2020-04-17] VITALS (12 sets, daily range): BP systolic 101–164; BP diastolic 35–103
[2020-04-17] MEDS: KETOROLAC 15MG/ML VIAL IV PRN ×3 (04:02→20:33)
[2020-04-17] MEDS: SPIRONOLACTONE 25MG TABLET PO SCH ×2 (06:00→18:26)
[2020-04-17] MEDS: DILTIAZEM HCL 90MG TABLET PO SCH ×3 (06:00→18:42)
[2020-04-17 06:28] LABS: CHLORIDE 96 mEq/L (98-107); HEMATOCRIT. 41.7 % (42.0-52.0); HEMOGLOBIN. 14.3 g/dL (14.0-18.0); MEAN CORPUSCULAR HEMOGLOBIN 37.2 pg (28.0-32.0); MEAN CORPUSCULAR VOLUME 108.2 fL (80.0-94.0); MEAN PLATELET VOLUME 10.4 fl (7.4-10.4); PLATELET 115 x1000/uL (130-400); RED BLOOD CELL COUNT 3.85 mill/uL (4.7-6.1); RED CELL DISTRIBUTION WIDTH 15.2 % (11.6-14.6)
[2020-04-17] MEDS: ASPIRIN 81MG TABLET PO SCH (09:06)
[2020-04-17] MEDS: ZINC SULFATE 220 MG ( 50 ) CAPSULE PO SCH (09:06)
[2020-04-17] MEDS: MAGNESIUM OXIDE 400MG TABLET PO SCH (09:07)
[2020-04-17] MEDS: POTASSIUM CHLORIDE 20MEQ TABLET SR PO SCH (09:07)
[2020-04-17] MEDS: CARVEDILOL 12.5MG TABLET PO SCH ×2 (09:09→20:32)
[2020-04-17] MEDS: ASCORBIC ACID 500 MG TABLET PO SCH ×2 (09:26→20:32)
[2020-04-17] MEDS: FUROSEMIDE 40MG/4ML VIAL IVP SCH ×2 (10:34→21:48)
[2020-04-17] MEDS: LORAZEPAM 0.5MG TABLET PO PRN (10:59)
[2020-04-17 14:05] LABS: NUCLEATED RED BLOOD CELLS 2 /100 WBC; PLATELET ESTIMATE DECREASED
[2020-04-17] MEDS: MIDODRINE HCL 2.5MG TABLET PO SCH ×2 (15:33→17:37)
[2020-04-17] MEDS: RIVAROXABAN 20 MG TABLET PO SCH (17:33)
[2020-04-17] MEDS: ZOLPIDEM TARTRATE 5MG TABLET PO PRN (20:32)
[2020-04-18] VITALS: BP 133/80
[2020-04-18] MEDS: DILTIAZEM HCL 90MG TABLET PO SCH ×3 (00:33→14:00)
[2020-04-18] MEDS: LORAZEPAM 0.5MG TABLET PO PRN (00:33)
[2020-04-18] MEDS: SPIRONOLACTONE 25MG TABLET PO SCH (06:00)
[2020-04-18 06:03] LABS: HEMATOCRIT. 38.5 % (42.0-52.0); HEMOGLOBIN. 13.2 g/dL (14.0-18.0); MEAN CORPUSCULAR HEMOGLOBIN 37.5 pg (28.0-32.0); MEAN PLATELET VOLUME 10.4 fl (7.4-10.4); PLATELET 122 x1000/uL (130-400); RED BLOOD CELL COUNT 3.53 mill/uL (4.7-6.1); RED CELL DISTRIBUTION WIDTH 14.8 % (11.6-14.6)
[2020-04-18 08:00] VITALS: BP 147/94
[2020-04-18] MEDS: MIDODRINE HCL 2.5MG TABLET PO SCH ×2 (08:21→14:00)
[2020-04-18] MEDS: ASPIRIN 81MG TABLET PO SCH (08:50)
[2020-04-18] MEDS: ZINC SULFATE 220 MG ( 50 ) CAPSULE PO SCH (08:51)
[2020-04-18] MEDS: MAGNESIUM OXIDE 400MG TABLET PO SCH (08:51)
[2020-04-18] MEDS: ASCORBIC ACID 500 MG TABLET PO SCH (08:51)
[2020-04-18] MEDS: POTASSIUM CHLORIDE 20MEQ TABLET SR PO SCH (08:51)
[2020-04-18] MEDS: CARVEDILOL 12.5MG TABLET PO SCH (08:51)
[2020-04-18] MEDS: FUROSEMIDE 40MG/4ML VIAL IVP SCH (09:11)
[2020-04-18] MEDS: KETOROLAC 15MG/ML VIAL IV PRN (09:12)
[2020-04-18 12:00] VITALS: BP 125/64
[2020-04-18 13:12] LABS: PLATELET ESTIMATE SLIGHTLY DECREASED
[2020-04-18 15:25] VITALS: BP 125/64
[2020-04-18] MEDS ORDERED: FUROSEMIDE 40MG TABLET PO SCH (18:00)
== END 2020-04-18 16:15 | disposition home or self-care (01) | DRG 190 ==
LOC: ER 09:46 → 5EST 12:26 → EDBEDREQSVC 12:29 → EDBEDREQ 12:29 → EDBEDREQTM 12:29 → ENRESERV 14:30
PROVIDERS: ADMIT Internal Medicine; ATTEND Internal Medicine
DX: I21.4 Non-ST elevation (NSTEMI) myocardial infarction (principal); E87.1 Hypo-osmolality and hyponatremia; E83.42 Hypomagnesemia; I31.3 Pericardial effusion (noninflammatory); I50.43 Acute on chronic combined systolic (congestive) and diastolic (congestive) heart failure; I48.19 Other persistent atrial fibrillation; I34.0 Nonrheumatic mitral (valve) insufficiency; F10.10 Alcohol abuse, uncomplicated; D69.6 Thrombocytopenia, unspecified; F12.90 Cannabis use, unspecified, uncomplicated; I11.0 Hypertensive heart disease with heart failure; R79.89 Other specified abnormal findings of blood chemistry; I95.9 Hypotension, unspecified; I25.10 Atherosclerotic heart disease of native coronary artery without angina pectoris; I42.9 Cardiomyopathy, unspecified; J44.9 Chronic obstructive pulmonary disease, unspecified; R17 Unspecified jaundice; R74.01 Elevation of levels of liver transaminase levels; I25.2 Old myocardial infarction; Z79.01 Long term (current) use of anticoagulants; Z79.899 Other long term (current) drug therapy; Z86.73 Personal history of transient ischemic attack (TIA), and cerebral infarction without residual deficits
CPT/HCPCS: 36415; 71045; 80048; 80053; 80061; 80305; 82550; 82553; 82607; 82746; 83036; 83540; 83550; 83615; 83735; 83880; 84100; 84145; 84484; 85025; 85379; 86705; 86709; 86803; 87340; 93005; 93306; 93970; 99285; J0282; J1885; J1940; J2270; J2405; J3475; J3490; J7060

== ENCOUNTER 2020-06-03 21:05 | Inpatient (IN) | payer MEDICAID, OTHER ==
[~2020-06-03] VITALS: Ht 193 cm; Wt 98.0 kg
[~2020-06-03 21:05] MED LIST changes: +BENZ100C86 MT; -CARV12.545 PO; -CARV3.1242 PO; +COR6 PO; +DILT240C94 MT; +FAMO40TA7 PO; +FURO40TA5 PO; +GABA-532 PO; +GUAI400T11 PO; +LOSA25TA26 MT; +MELO-106 PO; +TRAM150C25 PO
[2020-06-03 21:51] LABS: HEMATOCRIT. 43.2 % (42.0-52.0); HEMOGLOBIN. 14.1 g/dL (14.0-18.0); MEAN CORPUSCULAR HEMOGLOBIN 34.8 pg (28.0-32.0); MEAN CORPUSCULAR VOLUME 106.4 fL (80.0-94.0); MEAN PLATELET VOLUME 8.9 fl (7.4-10.4); PLATELET 171 x1000/uL (130-400); RED BLOOD CELL COUNT 4.06 mill/uL (4.7-6.1)
[2020-06-03 21:55] LABS: CHLORIDE 105 mEq/L (98-107)
[2020-06-03 22:10] LABS: PLATELET ESTIMATE NORMAL
[2020-06-03] MEDS ORDERED: ASPIRIN 325MG EC TABLET PO ONE (22:15)
[2020-06-03] MEDS ORDERED: DILTIAZEM HCL 5MG/ML 5ML VIAL IV ONE (22:15)
[2020-06-03] MEDS ORDERED: HYDROCODONE/ACETAMINOPHEN 5/325MG TABLET PO ONE (22:15)
[2020-06-03] MEDS ORDERED: DILTIAZEM HCL 125 MG in DEXT 5% WATER 100 ML IV ONE (22:45)
[2020-06-03] MEDS ORDERED: FUROSEMIDE 40MG/4ML VIAL IVP NR (22:45)
[2020-06-03] MEDS ORDERED: ENOXAPARIN 100MG/ML SYR SUBCUT ONE (22:45)
[2020-06-03 22:59] LABS: INR 1.4; PROTHROMBIN TIME 14.3 sec (9.6-11.0)
[2020-06-04] MEDS ORDERED: CLONIDINE 0.1MG TABLET PO PRN
[2020-06-04] MEDS ORDERED: MAGNESIUM/ALUMINUM HYDROXIDE/SIMETHICONE 30ML UDC PO PRN
[2020-06-04] MEDS ORDERED: GUAIFENESIN 200MG/10ML SUGAR FREE UDC PO PRN
[2020-06-04] MEDS ORDERED: DIPHENHYDRAMINE 50MG/ML VIAL IV PRN
[2020-06-04] MEDS ORDERED: ACETAMINOPHEN 325MG TABLET PO PRN ×2
[2020-06-04] MEDS ORDERED: ONDANSETRON HCL 4MG/2ML INJ IV PRN
[2020-06-04] MEDS: HYDROCODONE/ACETAMINOPHEN 5/325MG TABLET PO PRN ×4 (03:52→20:22)
[2020-06-04] MEDS: SODIUM CHLORIDE 0.9% INJ 3ML FLUSH IVF SCH ×3 (06:15→22:00)
[2020-06-04] MEDS: CARVEDILOL 3.125 MG TABLET PO SCH ×2 (09:00→20:22)
[2020-06-04] MEDS: FUROSEMIDE 40MG/4ML VIAL IVP SCH ×2 (09:55→17:06)
[2020-06-04] MEDS: FAMOTIDINE 20MG TABLET PO SCH ×2 (09:56→20:25)
[2020-06-04 10:45] VITALS: BP 138/92
[2020-06-04] MEDS ORDERED: DILTIAZEM HCL 125 MG in DEXT 5% WATER 100 ML IV SCH (11:00)
[2020-06-04] MEDS ORDERED: SACU1TAB PO (11:02)
[2020-06-04 11:04] VITALS: BP 124/91
[2020-06-04] MEDS: DILTIAZEM HCL 125 MG in DEXT 5% WATER 100 ML IV SCH (11:27)
[2020-06-04] MEDS ORDERED: *PATIENT'S OWN MEDICATION STORAGE XX SCH (11:30)
[2020-06-04] MEDS ORDERED: ENOXAPARIN 120MG/0.8ML SYR SUBCUT SCH (12:00)
[2020-06-04 16:00] VITALS: BP 118/88
[2020-06-04 20:00] VITALS: BP 124/77
[2020-06-04] MEDS: ENOXAPARIN 100MG/ML SYR SUBCUT SCH (20:23)
[2020-06-04] MEDS: ZOLPIDEM TARTRATE 5MG TABLET PO PRN (21:47)
[2020-06-05] VITALS (18 sets, daily range): BP systolic 109–135; BP diastolic 60–99
[2020-06-05] MEDS: DILTIAZEM HCL 125 MG in DEXT 5% WATER 100 ML IV SCH ×2 (00:35→15:14)
[2020-06-05] MEDS: HYDROCODONE/ACETAMINOPHEN 5/325MG TABLET PO PRN ×3 (03:25→14:15)
[2020-06-05] MEDS: SODIUM CHLORIDE 0.9% INJ 3ML FLUSH IVF SCH ×3 (05:33→21:37)
[2020-06-05 06:35] LABS: CHLORIDE 103 mEq/L (98-107)
[2020-06-05 06:38] LABS: HEMATOCRIT. 42.7 % (42.0-52.0); HEMOGLOBIN. 14.4 g/dL (14.0-18.0); MEAN CORPUSCULAR VOLUME 106.6 fL (80.0-94.0); MEAN PLATELET VOLUME 9.7 fl (7.4-10.4); PLATELET 167 x1000/uL (130-400); RED CELL DISTRIBUTION WIDTH 14.7 % (11.6-14.6)
[2020-06-05] MEDS: FUROSEMIDE 40MG/4ML VIAL IVP SCH ×2 (08:45→15:55)
[2020-06-05] MEDS: CARVEDILOL 3.125 MG TABLET PO SCH ×2 (08:46→21:00)
[2020-06-05] MEDS: FAMOTIDINE 20MG TABLET PO SCH ×2 (08:46→21:36)
[2020-06-05] MEDS: ENOXAPARIN 100MG/ML SYR SUBCUT SCH (08:47)
[2020-06-05] MEDS: DILTIAZEM HCL 60MG TABLET PO SCH ×2 (14:14→21:36)
[2020-06-05 16:55] LABS: *AMPHETAMINES SCREEN URINE NEGATIVE (NEGATIVE); *BARBITURATES SCREEN URINE NEGATIVE (NEGATIVE); *BENZODIAZEPINES SCREEN URINE NEGATIVE (NEGATIVE); *COCAINE SCREEN URINE NEGATIVE (NEGATIVE); METHADONE URINE SCREEN NEGATIVE (NEGATIVE)
[2020-06-05 16:56] LABS: CANNABINOID URINE SCREEN PRESUMTIVE POSITIVE (NEGATIVE); OPIATES URINE SCREEN PRESUMTIVE POSITIVE (NEGATIVE); PHENCYCLIDINE URINE SCREEN NEGATIVE (NEGATIVE)
[2020-06-05] MEDS: ENOXAPARIN 80MG/0.8ML SYR SUBCUT SCH (21:35)
[2020-06-05 21:49] LABS: PLATELET ESTIMATE NORMAL
[2020-06-06] VITALS (18 sets, daily range): BP systolic 105–153; BP diastolic 61–103
[2020-06-06] MEDS: DILTIAZEM HCL 60MG TABLET PO SCH ×3 (05:15→22:34)
[2020-06-06] MEDS: HYDROCODONE/ACETAMINOPHEN 5/325MG TABLET PO PRN ×4 (05:16→18:56)
[2020-06-06] MEDS: SODIUM CHLORIDE 0.9% INJ 3ML FLUSH IVF SCH ×3 (05:21→21:11)
[2020-06-06 05:49] LABS: CHLORIDE 104 mEq/L (98-107)
[2020-06-06 06:07] LABS: HEMATOCRIT. 43.9 % (42.0-52.0); HEMOGLOBIN. 14.8 g/dL (14.0-18.0); MEAN CORPUSCULAR HEMOGLOBIN 35.8 pg (28.0-32.0); MEAN CORPUSCULAR VOLUME 106.3 fL (80.0-94.0); MEAN PLATELET VOLUME 10.2 fl (7.4-10.4); PLATELET 154 x1000/uL (130-400); RED BLOOD CELL COUNT 4.13 mill/uL (4.7-6.1); RED CELL DISTRIBUTION WIDTH 14.8 % (11.6-14.6)
[2020-06-06] MEDS: FAMOTIDINE 20MG TABLET PO SCH ×2 (08:48→20:56)
[2020-06-06] MEDS: CARVEDILOL 3.125 MG TABLET PO SCH (08:48)
[2020-06-06] MEDS: ENOXAPARIN 80MG/0.8ML SYR SUBCUT SCH (08:48)
[2020-06-06] MEDS: FUROSEMIDE 40MG/4ML VIAL IVP SCH ×2 (08:48→17:11)
[2020-06-06] MEDS: LOSARTAN POTASSIUM 25 MG TABLET PO SCH (13:01)
[2020-06-06 14:56] LABS: PLATELET ESTIMATE NORMAL
[2020-06-06] MEDS: CARVEDILOL 6.25 MG TABLET PO SCH (20:56)
[2020-06-06] MEDS: ENOXAPARIN 100MG/ML SYR SUBCUT SCH (21:09)
[2020-06-06] MEDS: DILTIAZEM HCL 125 MG in DEXT 5% WATER 100 ML IV SCH (21:11)
[2020-06-07] VITALS (12 sets, daily range): BP systolic 115–135; BP diastolic 45–89
[2020-06-07] MEDS: DILTIAZEM HCL 125 MG in DEXT 5% WATER 100 ML IV SCH (05:18)
[2020-06-07] MEDS: DILTIAZEM HCL 60MG TABLET PO SCH ×3 (05:25→22:39)
[2020-06-07] MEDS: HYDROCODONE/ACETAMINOPHEN 5/325MG TABLET PO PRN ×3 (05:25→20:59)
[2020-06-07] MEDS: SODIUM CHLORIDE 0.9% INJ 3ML FLUSH IVF SCH ×3 (05:26→21:10)
[2020-06-07 07:19] LABS: CHLORIDE 99 mEq/L (98-107)
[2020-06-07 07:34] LABS: HEMATOCRIT. 42.9 % (42.0-52.0); HEMOGLOBIN. 14.4 g/dL (14.0-18.0); MEAN CORPUSCULAR HEMOGLOBIN 35.6 pg (28.0-32.0); MEAN CORPUSCULAR VOLUME 105.8 fL (80.0-94.0); MEAN PLATELET VOLUME 9.7 fl (7.4-10.4); PLATELET 162 x1000/uL (130-400); RED BLOOD CELL COUNT 4.05 mill/uL (4.7-6.1); RED CELL DISTRIBUTION WIDTH 14.5 % (11.6-14.6)
[2020-06-07] MEDS: ENOXAPARIN 100MG/ML SYR SUBCUT SCH ×2 (08:37→21:00)
[2020-06-07] MEDS: FUROSEMIDE 40MG/4ML VIAL IVP SCH ×2 (08:37→17:46)
[2020-06-07] MEDS: CARVEDILOL 6.25 MG TABLET PO SCH ×2 (08:38→20:58)
[2020-06-07] MEDS: FAMOTIDINE 20MG TABLET PO SCH ×2 (08:38→20:57)
[2020-06-07] MEDS: LOSARTAN POTASSIUM 25 MG TABLET PO SCH (08:38)
[2020-06-07] MEDS ORDERED: REGADENOSON 0.4 MG/5 ML IV SCH (11:15)
[2020-06-07 14:26] LABS: PLATELET ESTIMATE NORMAL
[2020-06-07] MEDS: ZOLPIDEM TARTRATE 5MG TABLET PO PRN (22:40)
[2020-06-08] VITALS: BP 122/61
[2020-06-08 04:00] VITALS: BP 112/82
[2020-06-08] MEDS: DILTIAZEM HCL 60MG TABLET PO SCH (06:05)
[2020-06-08] MEDS: HYDROCODONE/ACETAMINOPHEN 5/325MG TABLET PO PRN ×2 (06:06→12:23)
[2020-06-08] MEDS: SODIUM CHLORIDE 0.9% INJ 3ML FLUSH IVF SCH (06:07)
[2020-06-08 07:33] LABS: CHLORIDE 102 mEq/L (98-107)
[2020-06-08 08:00] VITALS: BP 128/88
[2020-06-08 08:12] LABS: HEMATOCRIT. 41.2 % (42.0-52.0); HEMOGLOBIN. 13.9 g/dL (14.0-18.0); MEAN CORPUSCULAR HEMOGLOBIN 35.5 pg (28.0-32.0); MEAN CORPUSCULAR VOLUME 105.2 fL (80.0-94.0); MEAN PLATELET VOLUME 10.2 fl (7.4-10.4); PLATELET 152 x1000/uL (130-400); RED BLOOD CELL COUNT 3.91 mill/uL (4.7-6.1); RED CELL DISTRIBUTION WIDTH 14.5 % (11.6-14.6)
[2020-06-08] MEDS: FAMOTIDINE 20MG TABLET PO SCH (09:00)
[2020-06-08] MEDS: FUROSEMIDE 40MG/4ML VIAL IVP SCH (09:00)
[2020-06-08] MEDS: ENOXAPARIN 100MG/ML SYR SUBCUT SCH (09:00)
[2020-06-08] MEDS: CARVEDILOL 6.25 MG TABLET PO SCH (09:00)
[2020-06-08] MEDS ORDERED: REGADENOSON 0.4 MG/5 ML IV ONE (09:39)
[2020-06-08 12:00] VITALS: BP 119/102
[2020-06-08] MEDS ORDERED: DILTIAZEM HCL 60MG TABLET PO SCH (12:00)
[2020-06-08] MEDS ORDERED: FUROSEMIDE 40MG/4ML VIAL IVP NR (13:15)
[2020-06-08 14:47] VITALS: BP 114/76
[2020-06-08] MEDS ORDERED: ENOXAPARIN 100MG/ML SYR SUBCUT SCH ×2 (15:13→21:00)
[2020-06-08 17:17] LABS: PLATELET ESTIMATE NORMAL
[2020-06-08] MEDS ORDERED: FUROSEMIDE 40MG TABLET PO SCH (21:00)
[2020-06-08] MEDS ORDERED: LOSARTAN POTASSIUM 25 MG TABLET PO SCH (21:00)
[2020-06-08] MEDS ORDERED: CARVEDILOL 12.5MG TABLET PO SCH (21:00)
== END 2020-06-08 16:32 | disposition home or self-care (01) | DRG 194 ==
LOC: ER 21:05 → 3WST 23:11 → EDBEDREQ 23:28 → EDBEDREQSVC 23:53 → ENRESERV 06-04 08:59
PROVIDERS: ADMIT Internal Medicine; ATTEND Internal Medicine
DX: I11.0 Hypertensive heart disease with heart failure (principal); I50.23 Acute on chronic systolic (congestive) heart failure; I48.20 Chronic atrial fibrillation, unspecified; E66.01 Morbid (severe) obesity due to excess calories; I25.10 Atherosclerotic heart disease of native coronary artery without angina pectoris; J44.9 Chronic obstructive pulmonary disease, unspecified; E78.5 Hyperlipidemia, unspecified; I34.0 Nonrheumatic mitral (valve) insufficiency; I31.3 Pericardial effusion (noninflammatory); I42.9 Cardiomyopathy, unspecified; E80.6 Other disorders of bilirubin metabolism; Z20.822 Contact with and (suspected) exposure to COVID-19; F10.10 Alcohol abuse, uncomplicated; Y90.9 Presence of alcohol in blood, level not specified; I25.2 Old myocardial infarction; Z79.01 Long term (current) use of anticoagulants; Z86.73 Personal history of transient ischemic attack (TIA), and cerebral infarction without residual deficits; Z79.1 Long term (current) use of non-steroidal anti-inflammatories (NSAID); Z79.82 Long term (current) use of aspirin; Z82.3 Family history of stroke; Z82.49 Family history of ischemic heart disease and other diseases of the circulatory system; Z59.0 Homelessness; Z79.899 Other long term (current) drug therapy; Z68.26 Body mass index [BMI] 26.0-26.9, adult; I21.4 Non-ST elevation (NSTEMI) myocardial infarction
CPT/HCPCS: 36415; 71045; 78452; 80048; 80053; 80305; 83735; 83880; 84443; 84484; 85025; 87426; 93005; 93017; 97162; 99291; A9500; J1200; J1650; J1940; J2785; J3490; J7060

== ENCOUNTER 2020-06-15 19:03 | Inpatient (IN) | payer MEDICAID, OTHER ==
[~2020-06-15] VITALS: Ht 193 cm; Wt 99.8 kg
[2020-06-15] MEDS ORDERED: DILTIAZEM HCL 5MG/ML 5ML VIAL IV ONE (19:30)
[2020-06-15] MEDS ORDERED: NITROGLYCERIN 0.4MG TABLET SL SL PRN (19:30)
[2020-06-15] MEDS ORDERED: ASPIRIN 81MG TABLET PO ONE (19:30)
[2020-06-15] MEDS ORDERED: SODIUM CHLORIDE 0.9% 1,000 ML IV ONE (19:30)
[2020-06-15 19:56] LABS: HEMATOCRIT. 38.8 % (42.0-52.0); MEAN CORPUSCULAR HEMOGLOBIN 34.9 pg (28.0-32.0); MEAN CORPUSCULAR VOLUME 103.8 fL (80.0-94.0); MEAN PLATELET VOLUME 8.1 fl (7.4-10.4); PLATELET 176 x1000/uL (130-400); RED BLOOD CELL COUNT 3.74 mill/uL (4.7-6.1); RED CELL DISTRIBUTION WIDTH 14.3 % (11.6-14.6)
[2020-06-15 19:58] LABS: CHLORIDE 105 mEq/L (98-107)
[2020-06-15 20:00] LABS: INR 1.3; PARTIAL THROMBOPLASTIN TIME 29.5 sec (23.4-31.0)
[2020-06-15] MEDS ORDERED: DILTIAZEM HCL 60MG TABLET PO ONE (20:15)
[2020-06-15] MEDS ORDERED: ENOXAPARIN 100MG/ML SYR SUBCUT ONE (20:30)
[2020-06-15 20:55] LABS: PLATELET ESTIMATE NORMAL
[2020-06-15] MEDS ORDERED: MORPHINE SULFATE 4 MG/ML CPJ (NOT FOR IM USE) IV STA (20:58)
[2020-06-15] MEDS ORDERED: ONDANSETRON HCL 4MG/2ML INJ IV STA (20:58)
[2020-06-16] MEDS ORDERED: ONDANSETRON HCL 4MG/2ML INJ IV PRN
[2020-06-16] MEDS ORDERED: ACETAMINOPHEN 325MG TABLET PO PRN
[2020-06-16] MEDS: ZOLPIDEM TARTRATE 5MG TABLET PO PRN (02:00)
[2020-06-16] MEDS: FUROSEMIDE 40MG/4ML VIAL IVP SCH ×2 (09:52→17:48)
[2020-06-16] MEDS: CARVEDILOL 12.5MG TABLET PO SCH ×2 (09:52→20:25)
[2020-06-16] MEDS: ASPIRIN 81MG EC TABLET PO SCH (11:00)
[2020-06-16] MEDS: RIVAROXABAN 20 MG TABLET PO SCH (17:48)
[2020-06-16] MEDS: DIGOXIN 500MCG/2ML AMP IV SCH (17:48)
[2020-06-16] MEDS ORDERED: DIGOXIN 500MCG/2ML AMP IV SCH (18:00)
[2020-06-16] MEDS: ATORVASTATIN CALCIUM 40MG TABLET PO SCH (20:25)
[2020-06-16 22:16] VITALS: BP 124/94
[2020-06-17] VITALS: BP 101/73
[2020-06-17 04:00] VITALS: BP 118/84
[2020-06-17 08:00] VITALS: BP 119/77
[2020-06-17] MEDS: ASPIRIN 81MG EC TABLET PO SCH (08:30)
[2020-06-17] MEDS: CARVEDILOL 12.5MG TABLET PO SCH ×2 (08:30→20:48)
[2020-06-17] MEDS: FUROSEMIDE 40MG/4ML VIAL IVP SCH ×2 (08:30→17:50)
[2020-06-17 10:00] VITALS: BP 117/71
[2020-06-17 12:38] LABS: HEMATOCRIT. 39.3 % (42.0-52.0); HEMOGLOBIN. 13.2 g/dL (14.0-18.0); MEAN CORPUSCULAR HEMOGLOBIN 35.4 pg (28.0-32.0); MEAN CORPUSCULAR VOLUME 105.3 fL (80.0-94.0); MEAN PLATELET VOLUME 8.2 fl (7.4-10.4); PLATELET 170 x1000/uL (130-400); RED BLOOD CELL COUNT 3.74 mill/uL (4.7-6.1); RED CELL DISTRIBUTION WIDTH 14.2 % (11.6-14.6)
[2020-06-17 12:45] LABS: CHLORIDE 102 mEq/L (98-107)
[2020-06-17 13:28] LABS: PLATELET ESTIMATE NORMAL
[2020-06-17] MEDS: RIVAROXABAN 20 MG TABLET PO SCH (17:51)
[2020-06-17] MEDS: DIGOXIN 500MCG/2ML AMP IV SCH (17:51)
[2020-06-17 20:00] VITALS: BP 110/73
[2020-06-17] MEDS: ZOLPIDEM TARTRATE 5MG TABLET PO PRN (20:46)
[2020-06-17] MEDS: ATORVASTATIN CALCIUM 40MG TABLET PO SCH (20:48)
[2020-06-18] VITALS: BP 115/60
[2020-06-18 04:00] VITALS: BP 134/82
[2020-06-18 07:40] LABS: HEMATOCRIT. 41.3 % (42.0-52.0); HEMOGLOBIN. 13.9 g/dL (14.0-18.0); MEAN CORPUSCULAR HEMOGLOBIN 35.5 pg (28.0-32.0); MEAN CORPUSCULAR VOLUME 105.1 fL (80.0-94.0); MEAN PLATELET VOLUME 8.6 fl (7.4-10.4); PLATELET 178 x1000/uL (130-400); RED BLOOD CELL COUNT 3.93 mill/uL (4.7-6.1); RED CELL DISTRIBUTION WIDTH 14.2 % (11.6-14.6)
[2020-06-18 07:55] LABS: CHLORIDE 99 mEq/L (98-107)
[2020-06-18] MEDS: FUROSEMIDE 40MG/4ML VIAL IVP SCH ×2 (09:34→17:41)
[2020-06-18] MEDS: CARVEDILOL 12.5MG TABLET PO SCH ×2 (09:34→21:27)
[2020-06-18] MEDS: ASPIRIN 81MG EC TABLET PO SCH (09:34)
[2020-06-18] MEDS ORDERED: ZOLPIDEM TARTRATE 5MG TABLET PO PRN (12:00)
[2020-06-18] MEDS ORDERED: MAGNESIUM 2 G PREMIX 50 ML IV NR (13:00)
[2020-06-18] MEDS: RIVAROXABAN 20 MG TABLET PO SCH (17:41)
[2020-06-18 17:46] LABS: DIGOXIN 0.5 ng/mL (0.9-2.0)
[2020-06-18] MEDS: DIGOXIN 500MCG/2ML AMP IV SCH (19:11)
[2020-06-18] MEDS ORDERED: MAGNESIUM 1 G PREMIX 100 ML IV NR (19:45)
[2020-06-18 20:00] VITALS: BP 105/78
[2020-06-18] MEDS: ATORVASTATIN CALCIUM 40MG TABLET PO SCH (21:27)
[2020-06-18] MEDS: ZOLPIDEM TARTRATE 5MG TABLET PO PRN (21:27)
[2020-06-18] MEDS: POTASSIUM CHLORIDE 20MEQ TABLET SR PO SCH (21:32)
[2020-06-19] VITALS: BP 116/88
[2020-06-19 04:00] VITALS: BP_SYST 109; BP_SYST 116; BP_DIAS 88
[2020-06-19 07:05] LABS: CHLORIDE 100 mEq/L (98-107)
[2020-06-19 08:00] VITALS: BP 106/61
[2020-06-19] MEDS ORDERED: MAGNESIUM OXIDE 400MG TABLET PO SCH (09:00)
[2020-06-19] MEDS: FUROSEMIDE 40MG/4ML VIAL IVP SCH (09:09)
[2020-06-19] MEDS: ASPIRIN 81MG EC TABLET PO SCH (09:09)
[2020-06-19] MEDS: POTASSIUM CHLORIDE 20MEQ TABLET SR PO SCH (09:10)
[2020-06-19] MEDS: CARVEDILOL 12.5MG TABLET PO SCH (09:10)
[2020-06-19 12:00] VITALS: BP 95/67
[2020-06-19] MEDS ORDERED: POTA20TA82 PO (12:12)
[2020-06-19] MEDS ORDERED: COR12 PO (12:12)
[2020-06-19] MEDS ORDERED: LIP40 PO (12:12)
[2020-06-19] MEDS ORDERED: ASPI-1406 PO (12:12)
[2020-06-19] MEDS ORDERED: FURO-151 MT (12:12)
[2020-06-19] MEDS ORDERED: RIVA20TA PO (12:12)
[2020-06-19 14:19] VITALS: BP 95/67
[2020-06-19 21:20] LABS: PLATELET ESTIMATE NORMAL
== END 2020-06-19 15:05 | disposition home or self-care (01) | DRG 203 ==
LOC: ER 19:03 → EDBEDREQ 22:31 → ENRESERV 06-16 17:10 → CANRESERV 06-16 17:10 → ENRESERV 06-16 17:36 → 8WST 06-16 18:20
PROVIDERS: ADMIT Internal Medicine; ATTEND Internal Medicine
DX: M94.0 Chondrocostal junction syndrome [Tietze] (principal); J96.00 Acute respiratory failure, unspecified whether with hypoxia or hypercapnia; I50.23 Acute on chronic systolic (congestive) heart failure; E44.1 Mild protein-calorie malnutrition; E78.5 Hyperlipidemia, unspecified; F10.10 Alcohol abuse, uncomplicated; F12.90 Cannabis use, unspecified, uncomplicated; I11.0 Hypertensive heart disease with heart failure; I25.10 Atherosclerotic heart disease of native coronary artery without angina pectoris; I31.3 Pericardial effusion (noninflammatory); I48.20 Chronic atrial fibrillation, unspecified; J44.9 Chronic obstructive pulmonary disease, unspecified; R77.8 Other specified abnormalities of plasma proteins; I42.9 Cardiomyopathy, unspecified; I25.2 Old myocardial infarction; Z86.73 Personal history of transient ischemic attack (TIA), and cerebral infarction without residual deficits; Z68.26 Body mass index [BMI] 26.0-26.9, adult; Z79.899 Other long term (current) drug therapy; R65.11 Systemic inflammatory response syndrome (SIRS) of non-infectious origin with acute organ dysfunction
CPT/HCPCS: 36415; 71045; 80048; 80053; 80162; 83735; 83880; 84132; 84484; 85025; 93005; 93306; 96372; 96374; 96375; 99291; J1160; J1650; J1940; J2270; J2405; J3475; J3490; J7030

== ENCOUNTER 2020-07-11 04:26 | Inpatient (IN) | payer OTHER ==
[~2020-07-11] VITALS: Ht 185.4 cm; Wt 94.3 kg
[2020-07-11] VITALS (39 sets, daily range): BP systolic 106–157; BP diastolic 42–101
[~2020-07-11 04:26] MED LIST changes: +ASPI-1406 PO; +COR12 PO; -DILT240C94 MT; +FURO-151 MT; +LIP40 PO; +POTA20TA82 PO
[2020-07-11 04:59] LABS: HEMATOCRIT. 40.9 % (42.0-52.0); HEMOGLOBIN. 13.6 g/dL (14.0-18.0); MEAN CORPUSCULAR VOLUME 102.2 fL (80.0-94.0); MEAN PLATELET VOLUME 8.1 fl (7.4-10.4); PLATELET 188 x1000/uL (130-400); RED CELL DISTRIBUTION WIDTH 15.1 % (11.6-14.6)
[2020-07-11] MEDS ORDERED: DILTIAZEM HCL 5MG/ML 5ML VIAL IV ONE (05:00)
[2020-07-11 05:23] LABS: CHLORIDE 100 mEq/L (98-107)
[2020-07-11] MEDS ORDERED: DILTIAZEM HCL 125 MG in DEXT 5% WATER 100 ML IV ONE (05:30)
[2020-07-11] MEDS ORDERED: ASPIRIN 325MG EC TABLET PO ONE (05:45)
[2020-07-11] MEDS ORDERED: HEPARIN 25,000 UNITS PREMIX 250 ML IV ONE (05:45)
[2020-07-11] MEDS: DILTIAZEM HCL 125 MG in DEXT 5% WATER 100 ML IV NR ×2 (05:47→18:02)
[2020-07-11 05:49] LABS: NUCLEATED RED BLOOD CELLS 1 /100 WBC; PLATELET ESTIMATE NORMAL
[2020-07-11 06:51] LABS: INR 1.4; PARTIAL THROMBOPLASTIN TIME 28.5 sec (23.4-31.0); PROTHROMBIN TIME 14.6 sec (9.6-11.0)
[2020-07-11] MEDS ORDERED: HEPARIN 25,000 UNITS PREMIX 250 ML IV SCH (07:00)
[2020-07-11] MEDS: LORAZEPAM 1MG TABLET PO PRN ×2 (08:20→21:14)
[2020-07-11] MEDS ORDERED: HEPARIN BOLUS PRN aPTT <30 IV (12:00)
[2020-07-11] MEDS ORDERED: HEPARIN BOLUS PRN aPTT 30-44 IV (12:00)
[2020-07-11] MEDS ORDERED: GUAI-741 MT (14:59)
[2020-07-11] MEDS ORDERED: ONDANSETRON HCL 4MG/2ML INJ IV PRN (15:00)
[2020-07-11] MEDS ORDERED: DILT240C96 MT (15:00)
[2020-07-11 16:26] LABS: *AMPHETAMINES SCREEN URINE NEGATIVE (NEGATIVE); *BARBITURATES SCREEN URINE NEGATIVE (NEGATIVE); *BENZODIAZEPINES SCREEN URINE NEGATIVE (NEGATIVE); *COCAINE SCREEN URINE NEGATIVE (NEGATIVE); CANNABINOID URINE SCREEN PRESUMTIVE POSITIVE (NEGATIVE); PHENCYCLIDINE URINE SCREEN NEGATIVE (NEGATIVE)
[2020-07-11 16:27] LABS: METHADONE URINE SCREEN NEGATIVE (NEGATIVE); OPIATES URINE SCREEN NEGATIVE (NEGATIVE)
[2020-07-11] MEDS: FUROSEMIDE 40MG/4ML VIAL IVP SCH ×2 (17:56→18:02)
[2020-07-11] MEDS: ENOXAPARIN 100MG/ML SYR SUBCUT SCH (17:56)
[2020-07-11] MEDS ORDERED: *PATIENT'S OWN MEDICATION STORAGE XX SCH (19:00)
[2020-07-12] VITALS (74 sets, daily range): BP systolic 85–172; BP diastolic 35–114
[2020-07-12] MEDS: DILTIAZEM HCL 125 MG in DEXT 5% WATER 100 ML IV NR (00:47)
[2020-07-12] MEDS ORDERED: METOPROLOL TARTRATE 50MG TABLET PO SCH ×2 (01:00→09:00)
[2020-07-12 06:31] LABS: CHLORIDE 100 mEq/L (98-107)
[2020-07-12] MEDS: ENOXAPARIN 100MG/ML SYR SUBCUT SCH ×2 (06:39→17:32)
[2020-07-12] MEDS: FUROSEMIDE 40MG/4ML VIAL IVP SCH ×2 (07:22→17:32)
[2020-07-12] MEDS ORDERED: CARVEDILOL 12.5MG TABLET PO SCH ×2 (11:00→21:00)
[2020-07-12] MEDS: DILTIAZEM HCL 30MG TABLET PO SCH ×3 (12:00→17:39)
[2020-07-12 12:06] LABS: HEMATOCRIT. 42.2 % (42.0-52.0); HEMOGLOBIN. 14.1 g/dL (14.0-18.0); MEAN CORPUSCULAR HEMOGLOBIN 34.5 pg (28.0-32.0); MEAN CORPUSCULAR VOLUME 103.4 fL (80.0-94.0); PLATELET 168 x1000/uL (130-400); RED BLOOD CELL COUNT 4.08 mill/uL (4.7-6.1); RED CELL DISTRIBUTION WIDTH 14.9 % (11.6-14.6)
[2020-07-12 13:22] LABS: PLATELET ESTIMATE NORMAL
[2020-07-12] MEDS: DILTIAZEM HCL 125 MG in DEXT 5% WATER 100 ML IV PRN (14:07)
[2020-07-12] MEDS: ACETAMINOPHEN 325MG TABLET PO PRN (20:43)
[2020-07-12] MEDS: LORAZEPAM 1MG TABLET PO PRN (20:43)
[2020-07-12] MEDS: CARVEDILOL 12.5MG TABLET PO SCH (20:44)
[2020-07-13] VITALS (12 sets, daily range): BP systolic 101–143; BP diastolic 44–91
[2020-07-13] MEDS: DILTIAZEM HCL 30MG TABLET PO SCH ×5 (00:39→23:06)
[2020-07-13] MEDS: DILTIAZEM HCL 125 MG in DEXT 5% WATER 100 ML IV PRN (03:08)
[2020-07-13] MEDS: ENOXAPARIN 100MG/ML SYR SUBCUT SCH ×2 (05:54→17:03)
[2020-07-13] MEDS: FUROSEMIDE 40MG/4ML VIAL IVP SCH ×2 (08:15→17:02)
[2020-07-13] MEDS: CARVEDILOL 12.5MG TABLET PO SCH ×2 (08:15→20:39)
[2020-07-13 09:23] LABS: HEMATOCRIT. 39.3 % (42.0-52.0); HEMOGLOBIN. 13.3 g/dL (14.0-18.0); MEAN CORPUSCULAR HEMOGLOBIN 34.7 pg (28.0-32.0); MEAN CORPUSCULAR VOLUME 102.2 fL (80.0-94.0); MEAN PLATELET VOLUME 8.8 fl (7.4-10.4); PLATELET 166 x1000/uL (130-400); RED BLOOD CELL COUNT 3.85 mill/uL (4.7-6.1); RED CELL DISTRIBUTION WIDTH 14.8 % (11.6-14.6)
[2020-07-13 09:27] LABS: CHLORIDE 97 mEq/L (98-107)
[2020-07-13] MEDS ORDERED: POTASSIUM CHLORIDE 20MEQ/PACKET PO NR (10:30)
[2020-07-13] MEDS: MAGNESIUM OXIDE 400MG TABLET PO SCH (11:04)
[2020-07-13] MEDS ORDERED: DILTIAZEM HCL 125 MG in DEXT 5% WATER 100 ML IV SCH (11:30)
[2020-07-13] MEDS ORDERED: MAGNESIUM 2 G PREMIX 50 ML IV NR (11:30)
[2020-07-13 14:58] LABS: PLATELET ESTIMATE NORMAL
[2020-07-13] MEDS: LORAZEPAM 1MG TABLET PO PRN (20:39)
[2020-07-13] MEDS: ACETAMINOPHEN 325MG TABLET PO PRN (20:39)
[2020-07-14] VITALS (10 sets, daily range): BP systolic 109–137; BP diastolic 64–105
[2020-07-14] MEDS: DILTIAZEM HCL 30MG TABLET PO SCH ×2 (05:29→12:11)
[2020-07-14] MEDS: ENOXAPARIN 100MG/ML SYR SUBCUT SCH (05:30)
[2020-07-14 08:32] LABS: HEMATOCRIT. 41.1 % (42.0-52.0); MEAN CORPUSCULAR HEMOGLOBIN 34.7 pg (28.0-32.0); MEAN CORPUSCULAR VOLUME 102.2 fL (80.0-94.0); MEAN PLATELET VOLUME 9.4 fl (7.4-10.4); PLATELET 160 x1000/uL (130-400); RED BLOOD CELL COUNT 4.02 mill/uL (4.7-6.1); RED CELL DISTRIBUTION WIDTH 14.5 % (11.6-14.6)
[2020-07-14 08:44] LABS: CHLORIDE 99 mEq/L (98-107)
[2020-07-14] MEDS: MAGNESIUM OXIDE 400MG TABLET PO SCH (09:29)
[2020-07-14] MEDS: FUROSEMIDE 40MG/4ML VIAL IVP SCH (09:29)
[2020-07-14] MEDS: CARVEDILOL 12.5MG TABLET PO SCH (09:30)
[2020-07-14] MEDS ORDERED: POTASSIUM CHLORIDE 20MEQ TABLET SR PO NR (10:30)
[2020-07-14] MEDS: LORAZEPAM 1MG TABLET PO PRN (12:11)
[2020-07-14 13:43] LABS: PLATELET ESTIMATE NORMAL
[2020-07-14] MEDS ORDERED: RIVA20TA PO (15:05)
[2020-07-14] MEDS ORDERED: DILT240C96 MT (15:05)
[2020-07-14] MEDS ORDERED: FURO-151 MT (15:05)
[2020-07-14] MEDS ORDERED: COR6 PO (15:05)
[2020-07-14] MEDS ORDERED: CARVEDILOL 6.25 MG TABLET PO SCH (21:00)
[2020-07-15] MEDS ORDERED: POTASSIUM CHLORIDE 20MEQ TABLET SR PO SCH (09:00)
== END 2020-07-14 18:57 | disposition home or self-care (01) | DRG 190 ==
LOC: ER 04:26 → CVICU 06:25 → ENRESERV 13:12 → 3WST 07-12 15:53
PROVIDERS: ADMIT Internal Medicine; ATTEND Internal Medicine
DX: I21.4 Non-ST elevation (NSTEMI) myocardial infarction (principal); I11.0 Hypertensive heart disease with heart failure; I48.19 Other persistent atrial fibrillation; I50.23 Acute on chronic systolic (congestive) heart failure; I42.0 Dilated cardiomyopathy; E78.5 Hyperlipidemia, unspecified; J44.9 Chronic obstructive pulmonary disease, unspecified; E83.42 Hypomagnesemia; E87.6 Hypokalemia; I49.3 Ventricular premature depolarization; F41.9 Anxiety disorder, unspecified; I47.1 Supraventricular tachycardia; F12.90 Cannabis use, unspecified, uncomplicated; Z79.01 Long term (current) use of anticoagulants; Z79.84 Long term (current) use of oral hypoglycemic drugs; Z79.899 Other long term (current) drug therapy; Z79.82 Long term (current) use of aspirin; Z79.1 Long term (current) use of non-steroidal anti-inflammatories (NSAID); Z59.0 Homelessness; Z86.73 Personal history of transient ischemic attack (TIA), and cerebral infarction without residual deficits
CPT/HCPCS: 36415; 71045; 80048; 80053; 80305; 83735; 83880; 84484; 85025; 93005; 99291; J1644; J1650; J1940; J3475; J3490; J7060

== ENCOUNTER 2020-08-23 14:34 | Emergency (ER) | payer OTHER ==
[~2020-08-23] VITALS: Ht 193 cm; Wt 100.0 kg
[~2020-08-23 14:34] MED LIST changes: -ACET650T37 PO; +DILT240C96 MT; +GUAI-741 MT; -GUAI400T11 PO; -TRAM150C25 PO
[2020-08-23 17:28] VITALS: BP 140/111
== END 2020-08-23 18:54 | disposition home or self-care (01) ==
LOC: ER 14:34
DX: S80.02XA Contusion of left knee, initial encounter (principal); R55 Syncope and collapse; W06.XXXA Fall from bed, initial encounter; Y93.89 Activity, other specified; Y92.013 Bedroom of single-family (private) house as the place of occurrence of the external cause
CPT/HCPCS: 93005; 99283

== ENCOUNTER 2020-12-31 14:17 | Emergency (ER) | payer OTHER ==
[~2020-12-31] VITALS: Ht 193 cm; Wt 93.0 kg
[~2020-12-31 14:17] MED LIST changes: -ASPI-1497 PO; -ATOR-2 PO; +CARV6.2548 MT; +CEPH500T MT; -COR6 PO; +DIGO125T80 MT; -FURO40TA5 PO; -GUAI-741 MT; +MELO-106 MT; -MELO-106 PO; +METO2.5T2 MT; -NORT25CA PO; +PEG15DRO5 EACHEYE; +SPIR25TA6 MT; +[UNRECOGNIZED DRUG - CODE] PO
[2020-12-31] MEDS ORDERED: CEPHALEXIN 250MG CAPSULE PO ONE (15:30)
[2020-12-31] MEDS ORDERED: ACETAMINOPHEN 325MG TABLET PO ONE (15:30)
[2020-12-31] MEDS ORDERED: TOPUD MT (15:44)
[2020-12-31] MEDS ORDERED: CEPH500T MT (15:44)
[2020-12-31 16:02] VITALS: BP 112/60
== END 2020-12-31 16:03 | disposition home or self-care (01) ==
LOC: ER 14:17
DX: L03.115 Cellulitis of right lower limb (principal); I11.0 Hypertensive heart disease with heart failure; I50.9 Heart failure, unspecified; I48.91 Unspecified atrial fibrillation; Z79.82 Long term (current) use of aspirin; Z79.899 Other long term (current) drug therapy
CPT/HCPCS: 99283

== ENCOUNTER 2021-01-24 06:23 | Inpatient (IN) | payer OTHER ==
[~2021-01-24] VITALS: Ht 172.7 cm; Wt 83.0 kg
[~2021-01-24 06:23] MED LIST changes: +TOPUD MT
[2021-01-24 07:26] LABS: HEMATOCRIT. 42.1 % (42.0-52.0); HEMOGLOBIN. 14.6 g/dL (14.0-18.0); MEAN CORPUSCULAR HEMOGLOBIN 35.1 pg (28.0-32.0); MEAN CORPUSCULAR VOLUME 101.2 fL (80.0-94.0); MEAN PLATELET VOLUME 7.8 fl (7.4-10.4); PLATELET 258 x1000/uL (130-400); RED BLOOD CELL COUNT 4.16 mill/uL (4.7-6.1); RED CELL DISTRIBUTION WIDTH 14.9 % (11.6-14.6)
[2021-01-24 07:27] LABS: CHLORIDE 108 mEq/L (98-107)
[2021-01-24 08:01] LABS: PLATELET ESTIMATE NORMAL
[2021-01-24] MEDS ORDERED: ONDANSETRON HCL 4MG/2ML INJ IV PRN (11:00)
[2021-01-24] MEDS ORDERED: FUROSEMIDE 20MG/2ML VIAL IVP SCH (12:00)
[2021-01-24] MEDS: DILTIAZEM HCL 30MG TABLET PO SCH ×2 (12:00→18:00)
[2021-01-24] MEDS: ACETAMINOPHEN 325MG TABLET PO PRN (14:16)
[2021-01-24] MEDS: ENOXAPARIN 80MG/0.8ML SYR SUBCUT SCH (14:47)
[2021-01-24] MEDS: ASPIRIN 81MG TABLET PO SCH (14:47)
[2021-01-24] MEDS: FUROSEMIDE 40MG/4ML VIAL IVP SCH (15:00)
[2021-01-24 18:40] VITALS: BP 107/57
[2021-01-24 19:02] VITALS: BP_SYST 102; BP_SYST 107; BP_SYST 97; BP_DIAS 48; BP_DIAS 57; BP_DIAS 68
[2021-01-24 20:00] VITALS: BP 100/67
[2021-01-24] MEDS: CARVEDILOL 3.125 MG TABLET PO SCH (21:00)
[2021-01-24] MEDS ORDERED: IOHEXOL-300 100 ML BOTTLE ONE (23:23)
[2021-01-25] VITALS (7 sets, daily range): BP systolic 60–117; BP diastolic 40–82
[2021-01-25] MEDS ORDERED: *PATIENT'S OWN MEDICATION STORAGE XX SCH (00:15)
[2021-01-25] MEDS: ACETAMINOPHEN 325MG TABLET PO PRN ×2 (00:51→11:58)
[2021-01-25] MEDS: ENOXAPARIN 80MG/0.8ML SYR SUBCUT SCH ×2 (01:00→11:59)
[2021-01-25] MEDS: DILTIAZEM HCL 30MG TABLET PO SCH ×3 (06:00→12:00)
[2021-01-25] MEDS: LOSARTAN POTASSIUM 25 MG TABLET PO SCH (08:28)
[2021-01-25] MEDS: CARVEDILOL 3.125 MG TABLET PO SCH ×2 (08:28→21:00)
[2021-01-25] MEDS: ASPIRIN 81MG TABLET PO SCH (09:21)
[2021-01-25] MEDS: FUROSEMIDE 40MG/4ML VIAL IVP SCH (09:21)
[2021-01-25 10:17] LABS: HEMATOCRIT. 46.3 % (42.0-52.0); HEMOGLOBIN. 15.2 g/dL (14.0-18.0); MEAN CORPUSCULAR HEMOGLOBIN 34.3 pg (28.0-32.0); MEAN CORPUSCULAR VOLUME 104.5 fL (80.0-94.0); MEAN PLATELET VOLUME 8.7 fl (7.4-10.4); PLATELET 259 x1000/uL (130-400); RED BLOOD CELL COUNT 4.43 mill/uL (4.7-6.1); RED CELL DISTRIBUTION WIDTH 15.2 % (11.6-14.6)
[2021-01-25 10:28] LABS: CHLORIDE 101 mEq/L (98-107)
[2021-01-25 16:22] LABS: INR 1.3
[2021-01-25 16:41] LABS: PLATELET ESTIMATE NORMAL
[2021-01-25] MEDS: ENOXAPARIN 100MG/ML SYR SUBCUT SCH (22:32)
[2021-01-26] VITALS (8 sets, daily range): BP systolic 83–120; BP diastolic 47–92
[2021-01-26] MEDS: ACETAMINOPHEN 325MG TABLET PO PRN (05:23)
[2021-01-26 06:57] LABS: HEMATOCRIT. 45.8 % (42.0-52.0); HEMOGLOBIN. 15.5 g/dL (14.0-18.0); MEAN CORPUSCULAR HEMOGLOBIN 34.7 pg (28.0-32.0); MEAN CORPUSCULAR VOLUME 102.5 fL (80.0-94.0); MEAN PLATELET VOLUME 8.7 fl (7.4-10.4); PLATELET 273 x1000/uL (130-400); RED BLOOD CELL COUNT 4.47 mill/uL (4.7-6.1); RED CELL DISTRIBUTION WIDTH 15.1 % (11.6-14.6)
[2021-01-26 07:22] LABS: CHLORIDE 103 mEq/L (98-107)
[2021-01-26] MEDS: LOSARTAN POTASSIUM 25 MG TABLET PO SCH (10:20)
[2021-01-26] MEDS: ASPIRIN 81MG TABLET PO SCH (10:20)
[2021-01-26] MEDS: FUROSEMIDE 40MG/4ML VIAL IVP SCH (10:20)
[2021-01-26] MEDS: CARVEDILOL 3.125 MG TABLET PO SCH ×2 (10:21→20:56)
[2021-01-26] MEDS: ENOXAPARIN 100MG/ML SYR SUBCUT SCH (10:22)
[2021-01-26] MEDS ORDERED: MAGNESIUM 2 G PREMIX 50 ML IV NR (11:00)
[2021-01-26 13:18] LABS: PLATELET ESTIMATE NORMAL
[2021-01-26] MEDS ORDERED: DIGOXIN 500MCG/2ML AMP IV SCH (18:00)
[2021-01-27] VITALS (7 sets, daily range): BP systolic 76–109; BP diastolic 58–80
[2021-01-27] MEDS: ENOXAPARIN 100MG/ML SYR SUBCUT SCH ×2 (00:40→11:17)
[2021-01-27] MEDS: ACETAMINOPHEN 325MG TABLET PO PRN (04:29)
[2021-01-27] MEDS: FUROSEMIDE 20MG/2ML VIAL IVP SCH (09:00)
[2021-01-27] MEDS: CARVEDILOL 3.125 MG TABLET PO SCH ×2 (09:00→21:00)
[2021-01-27 10:05] LABS: HEMATOCRIT. 43.5 % (42.0-52.0); MEAN CORPUSCULAR VOLUME 101.6 fL (80.0-94.0); MEAN PLATELET VOLUME 8.8 fl (7.4-10.4); PLATELET 279 x1000/uL (130-400); RED BLOOD CELL COUNT 4.28 mill/uL (4.7-6.1); RED CELL DISTRIBUTION WIDTH 15.1 % (11.6-14.6)
[2021-01-27 10:09] LABS: CHLORIDE 103 mEq/L (98-107)
[2021-01-27 10:34] LABS: DIGOXIN 0.5 ng/mL (0.9-2.0)
[2021-01-27] MEDS: ASPIRIN 81MG TABLET PO SCH (11:16)
[2021-01-27 12:15] LABS: PLATELET ESTIMATE NORMAL
[2021-01-27] MEDS: MIDODRINE HCL 2.5MG TABLET PO SCH ×2 (13:46→17:58)
[2021-01-27] MEDS: DIGOXIN 500MCG/2ML AMP IV SCH (17:58)
[2021-01-27] MEDS: MECLIZINE 12.5MG TABLET PO SCH (21:45)
[2021-01-27] MEDS: ENOXAPARIN 80MG/0.8ML SYR SUBCUT SCH (21:46)
[2021-01-28] VITALS (8 sets, daily range): BP systolic 83–117; BP diastolic 59–88
[2021-01-28] MEDS: MECLIZINE 12.5MG TABLET PO SCH (04:00)
[2021-01-28] MEDS: ACETAMINOPHEN 325MG TABLET PO PRN (05:14)
[2021-01-28 08:03] LABS: CHLORIDE 103 mEq/L (98-107)
[2021-01-28 08:13] LABS: HEMATOCRIT. 43.5 % (42.0-52.0); HEMOGLOBIN. 14.6 g/dL (14.0-18.0); MEAN CORPUSCULAR HEMOGLOBIN 34.5 pg (28.0-32.0); MEAN CORPUSCULAR VOLUME 102.5 fL (80.0-94.0); MEAN PLATELET VOLUME 8.9 fl (7.4-10.4); PLATELET 273 x1000/uL (130-400); RED BLOOD CELL COUNT 4.24 mill/uL (4.7-6.1); RED CELL DISTRIBUTION WIDTH 14.7 % (11.6-14.6)
[2021-01-28] MEDS: CARVEDILOL 3.125 MG TABLET PO SCH ×2 (09:00→21:34)
[2021-01-28] MEDS: FUROSEMIDE 20MG/2ML VIAL IVP SCH (09:00)
[2021-01-28] MEDS: ENOXAPARIN 80MG/0.8ML SYR SUBCUT SCH ×2 (09:28→21:34)
[2021-01-28] MEDS: ASPIRIN 81MG TABLET PO SCH (09:28)
[2021-01-28] MEDS: MIDODRINE HCL 2.5MG TABLET PO SCH ×2 (09:28→12:30)
[2021-01-28 14:01] LABS: PLATELET ESTIMATE NORMAL
[2021-01-28] MEDS ORDERED: MIDODRINE HCL 2.5MG TABLET PO SCH (17:00)
[2021-01-28] MEDS: DIGOXIN 500MCG/2ML AMP IV SCH (18:21)
[2021-01-28] MEDS: CARISOPRODOL 350 MG TABLET PO PRN (21:33)
[2021-01-29] VITALS: BP 110/83
[2021-01-29 04:00] VITALS: BP 107/83
[2021-01-29] MEDS: CARISOPRODOL 350 MG TABLET PO PRN (05:37)
[2021-01-29 08:00] VITALS: BP 102/79
[2021-01-29] MEDS ORDERED: DIGOXIN 125MCG TABLET PO SCH (18:00)
== END 2021-01-29 09:50 | DRG 204 ==
LOC: ER 06:23 → 8WST 10:10 → ENRESERV 15:40
PROVIDERS: ADMIT Internal Medicine; ATTEND Internal Medicine
DX: I95.1 Orthostatic hypotension (principal); I50.23 Acute on chronic systolic (congestive) heart failure; I27.20 Pulmonary hypertension, unspecified; G90.8 Other disorders of autonomic nervous system; I42.9 Cardiomyopathy, unspecified; I48.20 Chronic atrial fibrillation, unspecified; E78.5 Hyperlipidemia, unspecified; F10.10 Alcohol abuse, uncomplicated; I08.1 Rheumatic disorders of both mitral and tricuspid valves; I25.10 Atherosclerotic heart disease of native coronary artery without angina pectoris; R63.4 Abnormal weight loss; R00.1 Bradycardia, unspecified; R07.9 Chest pain, unspecified; Z20.822 Contact with and (suspected) exposure to COVID-19; M19.90 Unspecified osteoarthritis, unspecified site; F41.9 Anxiety disorder, unspecified; R74.01 Elevation of levels of liver transaminase levels; J44.9 Chronic obstructive pulmonary disease, unspecified; Y90.9 Presence of alcohol in blood, level not specified; I11.0 Hypertensive heart disease with heart failure; Z86.73 Personal history of transient ischemic attack (TIA), and cerebral infarction without residual deficits; I25.2 Old myocardial infarction; Z87.891 Personal history of nicotine dependence; Z79.01 Long term (current) use of anticoagulants; Z68.27 Body mass index [BMI] 27.0-27.9, adult; Z79.899 Other long term (current) drug therapy; Z91.14 Patient's other noncompliance with medication regimen
CPT/HCPCS: 36415; 70486; 70551; 71045; 71260; 74177; 80048; 80053; 80162; 82040; 82378; 83735; 83880; 84484; 85025; 87426; 93005; 93306; 97162; 97530; 99285; J1160; J1650; J1940; J3475; J8597; Q9967

== ENCOUNTER 2021-12-19 15:24 | Inpatient (IN) | payer OTHER ==
[~2021-12-19] VITALS: Ht 193 cm; Wt 94.3 kg
[~2021-12-19 15:24] MED LIST changes: +PEG15DRO14 EACHEYE; -PEG15DRO5 EACHEYE; +POTA-204 PO; -POTA20TA82 PO
[2021-12-19 17:06] LABS: HEMATOCRIT. 45.7 % (42.0-52.0); HEMOGLOBIN. 15.3 g/dL (14.0-18.0); MEAN CORPUSCULAR VOLUME 104.4 fL (80.0-94.0); MEAN PLATELET VOLUME 8.4 fl (7.4-10.4); PLATELET 176 x1000/uL (130-400); RED BLOOD CELL COUNT 4.38 mill/uL (4.7-6.1); RED CELL DISTRIBUTION WIDTH 18.7 % (11.6-14.6)
[2021-12-19 17:13] LABS: CHLORIDE 94 mEq/L (98-107)
[2021-12-19] MEDS ORDERED: ACETAMINOPHEN 325MG TABLET PO ONE (17:15)
[2021-12-19 17:26] LABS: ETHANOL BLOOD 296 mg/dL
[2021-12-19 18:01] LABS: PLATELET ESTIMATE NORMAL
[2021-12-19] MEDS ORDERED: METHYLPREDNISOLONE SOD SUCC 125 MG/2 ML VIAL IV ONE (20:30)
[2021-12-19] MEDS ORDERED: ALBUTEROL (0.083%) 2.5MG/3ML NEB HHN PRN (20:30)
[2021-12-19 22:25] VITALS: BP 137/94
[2021-12-20] MEDS: SODIUM CHLORIDE 0.9% 1,000 ML IV SCH ×2 (04:45→16:22)
[2021-12-20] MEDS ORDERED: CHLORDIAZEPOXIDE 25MG CAPSULE PO PRN (04:45)
[2021-12-20] MEDS ORDERED: CLONIDINE 0.1MG TABLET PO PRN (04:45)
[2021-12-20] MEDS ORDERED: NALOXONE HCL 0.4MG/ML VIAL IV PRN (05:15)
[2021-12-20] MEDS: HYDROCODONE/ACETAMINOPHEN 10/325MG TABLET PO PRN ×3 (06:24→21:54)
[2021-12-20 08:00] VITALS: BP 141/93
[2021-12-20] MEDS: FOLIC ACID 1MG TABLET PO SCH (08:15)
[2021-12-20] MEDS ORDERED: THIAMINE HCL 100MG TABLET PO SCH ×2 (09:00→10:00)
[2021-12-20 09:38] LABS: HEMATOCRIT. 43.4 % (42.0-52.0); HEMOGLOBIN. 14.6 g/dL (14.0-18.0); MEAN CORPUSCULAR HEMOGLOBIN 34.7 pg (28.0-32.0); MEAN CORPUSCULAR VOLUME 103.3 fL (80.0-94.0); MEAN PLATELET VOLUME 8.6 fl (7.4-10.4); PLATELET 164 x1000/uL (130-400); RED CELL DISTRIBUTION WIDTH 18.2 % (11.6-14.6)
[2021-12-20] MEDS: MULTIVITAMINS,THER W-MINERALS TABLET PO SCH (10:00)
[2021-12-20] MEDS ORDERED: FOLIC ACID 1MG TABLET PO SCH (10:00)
[2021-12-20 12:00] VITALS: BP 147/89
[2021-12-20] MEDS ORDERED: DILTIAZEM HCL 60MG TABLET PO SCH (12:00)
[2021-12-20 12:52] VITALS: BP 141/98
[2021-12-20] MEDS ORDERED: FUROSEMIDE 40MG/4ML VIAL IVP ONE (13:30)
[2021-12-20 15:44] LABS: HEPATITIS B SURFACE ANTIGEN NEGATIVE
[2021-12-20] MEDS ORDERED: LORAZEPAM 0.5MG TABLET PO PRN (15:45)
[2021-12-20 16:00] VITALS: BP 145/95
[2021-12-20] MEDS ORDERED: LACTULOSE 20G/30ML UDC PO NR (16:00)
[2021-12-20] MEDS ORDERED: DILTIAZEM HCL 30MG TABLET PO NR (16:00)
[2021-12-20] MEDS: CHLORDIAZEPOXIDE 25MG CAPSULE PO SCH ×2 (16:05→21:53)
[2021-12-20] MEDS: POLYVINYL ALCOHOL OPHTH DROPS 15ML BOTHEYE SCH ×2 (16:05→18:00)
[2021-12-20] MEDS ORDERED: APIXABAN 5 MG TABLET PO SCH (17:00)
[2021-12-20 18:00] VITALS: BP 149/95
[2021-12-20] MEDS: DILTIAZEM HCL 60MG TABLET PO SCH (19:23)
[2021-12-20 20:00] VITALS: BP 103/69
[2021-12-20] MEDS: CARVEDILOL 3.125 MG TABLET PO SCH (21:00)
[2021-12-20 21:55] LABS: PLATELET ESTIMATE NORMAL
[2021-12-21] VITALS: BP 105/77
[2021-12-21] MEDS: POLYVINYL ALCOHOL OPHTH DROPS 15ML BOTHEYE SCH ×4 (00:58→18:18)
[2021-12-21] MEDS: HYDROCODONE/ACETAMINOPHEN 10/325MG TABLET PO PRN ×3 (01:10→21:15)
[2021-12-21 04:00] VITALS: BP 117/78
[2021-12-21] MEDS: DILTIAZEM HCL 60MG TABLET PO SCH ×4 (06:00→18:17)
[2021-12-21] MEDS: BISACODYL 10MG SUPP PR PRN (06:02)
[2021-12-21] MEDS: SODIUM CHLORIDE 0.9% 1,000 ML IV SCH (06:02)
[2021-12-21] MEDS: CHLORDIAZEPOXIDE 25MG CAPSULE PO SCH ×3 (06:02→21:08)
[2021-12-21 07:18] LABS: HEMATOCRIT. 41.5 % (42.0-52.0); HEMOGLOBIN. 14.2 g/dL (14.0-18.0); MEAN CORPUSCULAR HEMOGLOBIN 35.3 pg (28.0-32.0); MEAN CORPUSCULAR VOLUME 103.1 fL (80.0-94.0); PLATELET 147 x1000/uL (130-400); RED BLOOD CELL COUNT 4.02 mill/uL (4.7-6.1); RED CELL DISTRIBUTION WIDTH 18.4 % (11.6-14.6)
[2021-12-21 07:19] LABS: INR 1.2; PROTHROMBIN TIME 12.8 sec (9.6-11.0)
[2021-12-21 08:00] VITALS: BP 120/75
[2021-12-21] MEDS: MULTIVITAMINS,THER W-MINERALS TABLET PO SCH (09:37)
[2021-12-21] MEDS: THIAMINE HCL 100MG TABLET PO SCH (09:37)
[2021-12-21] MEDS: LACTULOSE 20G/30ML UDC PO SCH (09:37)
[2021-12-21] MEDS: CARVEDILOL 3.125 MG TABLET PO SCH ×2 (09:37→20:51)
[2021-12-21] MEDS: FOLIC ACID 1MG TABLET PO SCH (09:37)
[2021-12-21 12:30] VITALS: BP 108/79
[2021-12-21 16:00] VITALS: BP 106/81
[2021-12-21] MEDS ORDERED: RIVAROXABAN 10 MG TABLET PO SCH (17:00)
[2021-12-21] MEDS: RIVAROXABAN 15 MG TABLET PO SCH (18:16)
[2021-12-21 19:48] VITALS: BP 98/69
[2021-12-21 21:57] LABS: PLATELET ESTIMATE NORMAL
[2021-12-22] VITALS: BP 99/69
[2021-12-22] MEDS: DILTIAZEM HCL 60MG TABLET PO SCH
[2021-12-22] MEDS: POLYVINYL ALCOHOL OPHTH DROPS 15ML BOTHEYE SCH ×4 (00:53→17:50)
[2021-12-22 10:10] LABS: ANTI-NUCLEAR ANTIBODIES DIRECT Negative (Negative)
[2021-12-22] MEDS: THIAMINE HCL 100MG TABLET PO SCH (11:30)
[2021-12-22] MEDS: LACTULOSE 20G/30ML UDC PO SCH (11:30)
[2021-12-22] MEDS: FOLIC ACID 1MG TABLET PO SCH (11:30)
[2021-12-22] MEDS: HYDROCODONE/ACETAMINOPHEN 10/325MG TABLET PO PRN ×2 (11:31→17:57)
[2021-12-22] MEDS: MULTIVITAMINS,THER W-MINERALS TABLET PO SCH (11:31)
[2021-12-22] MEDS: CARVEDILOL 3.125 MG TABLET PO SCH ×2 (11:32→21:00)
[2021-12-22 12:00] VITALS: BP 101/62
[2021-12-22 12:36] LABS: BASOPHILS % 1.6 % (0.0-2.0); EOSINOPHILS % 1.9 % (0.0-5.0); HEMATOCRIT. 39.5 % (42.0-52.0); HEMOGLOBIN. 13.4 g/dL (14.0-18.0); LYMPHOCYTES % 14.7 % (20.0-50.0); MEAN CORPUSCULAR HEMOGLOBIN 35.2 pg (28.0-32.0); MEAN CORPUSCULAR VOLUME 103.9 fL (80.0-94.0); MEAN PLATELET VOLUME 9.5 fl (7.4-10.4); MONOCYTES % 13.2 % (2.0-8.0); NEUTROPHILS % 68.6 % (40.0-76.0); PLATELET 122 x1000/uL (130-400); RED CELL DISTRIBUTION WIDTH 17.9 % (11.6-14.6)
[2021-12-22] MEDS: CHLORDIAZEPOXIDE 25MG CAPSULE PO SCH ×3 (14:25→22:42)
[2021-12-22 14:36] VITALS: BP 101/62
[2021-12-22] MEDS: RIVAROXABAN 15 MG TABLET PO SCH (17:49)
[2021-12-22] MEDS: DILTIAZEM HCL 90MG TABLET PO SCH (17:50)
[2021-12-22 20:00] VITALS: BP 97/63
[2021-12-23] MEDS: DILTIAZEM HCL 90MG TABLET PO SCH ×5 (00:13→23:58)
[2021-12-23] MEDS: HYDROCODONE/ACETAMINOPHEN 10/325MG TABLET PO PRN ×4 (00:14→21:05)
[2021-12-23] MEDS: POLYVINYL ALCOHOL OPHTH DROPS 15ML BOTHEYE SCH ×5 (00:16→23:51)
[2021-12-23] MEDS: CHLORDIAZEPOXIDE 25MG CAPSULE PO SCH ×3 (06:05→21:04)
[2021-12-23 07:09] LABS: HEMATOCRIT. 37.4 % (42.0-52.0); HEMOGLOBIN. 12.8 g/dL (14.0-18.0); MEAN CORPUSCULAR HEMOGLOBIN 35.3 pg (28.0-32.0); MEAN CORPUSCULAR VOLUME 103.3 fL (80.0-94.0); MEAN PLATELET VOLUME 9.3 fl (7.4-10.4); PLATELET 110 x1000/uL (130-400); RED BLOOD CELL COUNT 3.63 mill/uL (4.7-6.1); RED CELL DISTRIBUTION WIDTH 17.5 % (11.6-14.6)
[2021-12-23 08:10] VITALS: BP 114/82
[2021-12-23] MEDS: THIAMINE HCL 100MG TABLET PO SCH (09:00)
[2021-12-23] MEDS: CARVEDILOL 3.125 MG TABLET PO SCH ×2 (09:00→20:19)
[2021-12-23] MEDS: MULTIVITAMINS,THER W-MINERALS TABLET PO SCH (09:00)
[2021-12-23] MEDS: LACTULOSE 20G/30ML UDC PO SCH (09:00)
[2021-12-23] MEDS: FOLIC ACID 1MG TABLET PO SCH (09:00)
[2021-12-23 12:00] VITALS: BP 109/78
[2021-12-23 16:00] VITALS: BP 114/73
[2021-12-23] MEDS: RIVAROXABAN 15 MG TABLET PO SCH (18:17)
[2021-12-23 20:00] VITALS: BP 99/62
[2021-12-23 23:42] VITALS: BP_SYST 99; BP_DIAS 36; BP_DIAS 56
[2021-12-24] MEDS: HYDROCODONE/ACETAMINOPHEN 10/325MG TABLET PO PRN ×2 (03:46→20:54)
[2021-12-24 03:54] VITALS: BP 111/78
[2021-12-24] MEDS: POLYVINYL ALCOHOL OPHTH DROPS 15ML BOTHEYE SCH ×4 (05:46→23:27)
[2021-12-24] MEDS: DILTIAZEM HCL 90MG TABLET PO SCH ×4 (05:48→23:27)
[2021-12-24] MEDS: CHLORDIAZEPOXIDE 25MG CAPSULE PO SCH ×3 (05:48→21:00)
[2021-12-24 08:00] VITALS: BP 120/77
[2021-12-24] MEDS: CARVEDILOL 3.125 MG TABLET PO SCH ×2 (09:15→20:54)
[2021-12-24] MEDS: LACTULOSE 20G/30ML UDC PO SCH (09:15)
[2021-12-24] MEDS: FOLIC ACID 1MG TABLET PO SCH (09:16)
[2021-12-24] MEDS: THIAMINE HCL 100MG TABLET PO SCH (09:16)
[2021-12-24] MEDS: MULTIVITAMINS,THER W-MINERALS TABLET PO SCH (09:16)
[2021-12-24 09:22] LABS: HEMATOCRIT. 35.4 % (42.0-52.0); HEMOGLOBIN. 12.1 g/dL (14.0-18.0); MEAN CORPUSCULAR HEMOGLOBIN 35.6 pg (28.0-32.0); PLATELET 132 x1000/uL (130-400); RED CELL DISTRIBUTION WIDTH 17.6 % (11.6-14.6)
[2021-12-24 12:00] VITALS: BP 122/86
[2021-12-24 12:37] LABS: PLATELET ESTIMATE NORMAL
[2021-12-24 13:53] LABS: PLATELET ESTIMATE SLIGHTLY DECREASED
[2021-12-24 16:00] VITALS: BP 109/78
[2021-12-24] MEDS: RIVAROXABAN 15 MG TABLET PO SCH (17:29)
[2021-12-24 20:15] VITALS: BP 106/73
[2021-12-24 23:20] VITALS: BP 119/79
[2021-12-25 04:01] VITALS: BP 114/75
[2021-12-25] MEDS: HYDROCODONE/ACETAMINOPHEN 10/325MG TABLET PO PRN (04:13)
[2021-12-25] MEDS: CHLORDIAZEPOXIDE 25MG CAPSULE PO SCH ×3 (05:23→21:28)
[2021-12-25] MEDS: DILTIAZEM HCL 90MG TABLET PO SCH ×4 (05:23→23:33)
[2021-12-25] MEDS: POLYVINYL ALCOHOL OPHTH DROPS 15ML BOTHEYE SCH ×4 (05:23→23:32)
[2021-12-25 07:18] LABS: HEMATOCRIT. 34.3 % (42.0-52.0); HEMOGLOBIN. 11.8 g/dL (14.0-18.0); MEAN CORPUSCULAR HEMOGLOBIN 35.8 pg (28.0-32.0); MEAN CORPUSCULAR VOLUME 104.2 fL (80.0-94.0); MEAN PLATELET VOLUME 8.6 fl (7.4-10.4); PLATELET 164 x1000/uL (130-400); RED BLOOD CELL COUNT 3.29 mill/uL (4.7-6.1); RED CELL DISTRIBUTION WIDTH 17.9 % (11.6-14.6)
[2021-12-25 08:00] VITALS: BP 137/89
[2021-12-25] MEDS: FOLIC ACID 1MG TABLET PO SCH (08:57)
[2021-12-25] MEDS: CARVEDILOL 3.125 MG TABLET PO SCH ×2 (08:57→21:28)
[2021-12-25] MEDS: MULTIVITAMINS,THER W-MINERALS TABLET PO SCH (08:57)
[2021-12-25] MEDS: THIAMINE HCL 100MG TABLET PO SCH (08:57)
[2021-12-25] MEDS: LACTULOSE 20G/30ML UDC PO SCH (08:57)
[2021-12-25] MEDS: ACETAMINOPHEN 650MG/20.3ML UDC PO PRN (08:58)
[2021-12-25 12:00] VITALS: BP 115/73
[2021-12-25 14:43] LABS: PLATELET ESTIMATE NORMAL
[2021-12-25 16:00] VITALS: BP 108/79
[2021-12-25] MEDS: RIVAROXABAN 15 MG TABLET PO SCH (17:27)
[2021-12-25 18:00] VITALS: BP 108/79
[2021-12-25 20:00] VITALS: BP 113/70
[2021-12-26] VITALS: BP 125/81
[2021-12-26 04:00] VITALS: BP 142/70
[2021-12-26] MEDS: BISACODYL 10MG SUPP PR PRN (05:36)
[2021-12-26] MEDS: DILTIAZEM HCL 90MG TABLET PO SCH ×4 (05:36→23:33)
[2021-12-26] MEDS: CHLORDIAZEPOXIDE 25MG CAPSULE PO SCH ×3 (05:37→21:08)
[2021-12-26] MEDS: POLYVINYL ALCOHOL OPHTH DROPS 15ML BOTHEYE SCH ×4 (05:37→23:33)
[2021-12-26 06:14] LABS: HEMATOCRIT. 36.8 % (42.0-52.0); HEMOGLOBIN. 12.6 g/dL (14.0-18.0); MEAN CORPUSCULAR HEMOGLOBIN 35.3 pg (28.0-32.0); MEAN CORPUSCULAR VOLUME 103.8 fL (80.0-94.0); MEAN PLATELET VOLUME 8.2 fl (7.4-10.4); PLATELET 232 x1000/uL (130-400); RED BLOOD CELL COUNT 3.55 mill/uL (4.7-6.1); RED CELL DISTRIBUTION WIDTH 17.7 % (11.6-14.6)
[2021-12-26 08:00] VITALS: BP 122/87
[2021-12-26] MEDS: LACTULOSE 20G/30ML UDC PO SCH (09:35)
[2021-12-26] MEDS: THIAMINE HCL 100MG TABLET PO SCH (09:35)
[2021-12-26] MEDS: MULTIVITAMINS,THER W-MINERALS TABLET PO SCH (09:35)
[2021-12-26] MEDS: CARVEDILOL 3.125 MG TABLET PO SCH ×2 (09:36→21:00)
[2021-12-26] MEDS: HYDROCODONE/ACETAMINOPHEN 10/325MG TABLET PO PRN ×2 (09:36→17:30)
[2021-12-26] MEDS: FOLIC ACID 1MG TABLET PO SCH (09:36)
[2021-12-26] MEDS ORDERED: COR3 PO (10:33)
[2021-12-26] MEDS ORDERED: LACT10SO7 PO (10:33)
[2021-12-26] MEDS ORDERED: THIA100T72 PO (10:33)
[2021-12-26] MEDS ORDERED: FOLI-43 PO (10:33)
[2021-12-26] MEDS ORDERED: FURO20TA4 MT (10:33)
[2021-12-26] MEDS ORDERED: MULT-230 MT (10:33)
[2021-12-26] MEDS ORDERED: CHLO25CA10 MT (10:33)
[2021-12-26 12:00] VITALS: BP 114/83
[2021-12-26] MEDS: FUROSEMIDE 40MG/4ML VIAL IVP SCH (12:15)
[2021-12-26 16:30] VITALS: BP 101/62
[2021-12-26] MEDS: RIVAROXABAN 15 MG TABLET PO SCH (17:21)
[2021-12-26] MEDS: DOCUSATE SODIUM 250MG CAPSULE PO SCH (17:21)
[2021-12-26 20:00] VITALS: BP 94/57
[2021-12-27] VITALS: BP 130/95
[2021-12-27 05:04] VITALS: BP 134/72
[2021-12-27] MEDS: CHLORDIAZEPOXIDE 25MG CAPSULE PO SCH ×3 (05:16→21:17)
[2021-12-27] MEDS: DILTIAZEM HCL 90MG TABLET PO SCH ×4 (05:17→23:24)
[2021-12-27] MEDS: POLYVINYL ALCOHOL OPHTH DROPS 15ML BOTHEYE SCH ×4 (05:17→23:25)
[2021-12-27 07:40] LABS: HEMATOCRIT. 37.4 % (42.0-52.0); HEMOGLOBIN. 12.9 g/dL (14.0-18.0); MEAN CORPUSCULAR HEMOGLOBIN 35.7 pg (28.0-32.0); MEAN CORPUSCULAR VOLUME 103.3 fL (80.0-94.0); MEAN PLATELET VOLUME 7.9 fl (7.4-10.4); PLATELET 274 x1000/uL (130-400); RED BLOOD CELL COUNT 3.62 mill/uL (4.7-6.1); RED CELL DISTRIBUTION WIDTH 17.5 % (11.6-14.6)
[2021-12-27 08:00] VITALS: BP 132/94
[2021-12-27] MEDS: DOCUSATE SODIUM 250MG CAPSULE PO SCH ×2 (09:00→16:30)
[2021-12-27] MEDS: LACTULOSE 20G/30ML UDC PO SCH (09:47)
[2021-12-27] MEDS: CARVEDILOL 3.125 MG TABLET PO SCH ×2 (09:48→21:00)
[2021-12-27] MEDS: MULTIVITAMINS,THER W-MINERALS TABLET PO SCH (09:48)
[2021-12-27] MEDS: THIAMINE HCL 100MG TABLET PO SCH (09:48)
[2021-12-27] MEDS: FOLIC ACID 1MG TABLET PO SCH (09:48)
[2021-12-27] MEDS: FUROSEMIDE 40MG/4ML VIAL IVP SCH (09:49)
[2021-12-27] MEDS: HYDROCODONE/ACETAMINOPHEN 10/325MG TABLET PO PRN ×2 (09:50→18:11)
[2021-12-27] MEDS ORDERED: MAGNESIUM 2 G PREMIX 50 ML IV NR (10:30)
[2021-12-27 12:00] VITALS: BP 118/78
[2021-12-27 13:49] LABS: PLATELET ESTIMATE NORMAL
[2021-12-27] MEDS: POLYETHYLENE GLYCOL 3350 (17GM) 1 DOSE PACK PO SCH (14:01)
[2021-12-27 16:00] VITALS: BP 103/72
[2021-12-27] MEDS: RIVAROXABAN 15 MG TABLET PO SCH (16:30)
[2021-12-27 20:00] VITALS: BP 96/58
[2021-12-28] VITALS: BP 115/65
[2021-12-28 02:27] LABS: PLATELET ESTIMATE NORMAL
[2021-12-28 05:00] VITALS: BP 105/74
[2021-12-28] MEDS: DILTIAZEM HCL 90MG TABLET PO SCH ×4 (05:15→17:07)
[2021-12-28] MEDS: CHLORDIAZEPOXIDE 25MG CAPSULE PO SCH ×3 (05:15→21:20)
[2021-12-28] MEDS: POLYVINYL ALCOHOL OPHTH DROPS 15ML BOTHEYE SCH ×3 (05:16→17:06)
[2021-12-28 06:47] LABS: HEMATOCRIT. 34.5 % (42.0-52.0); MEAN PLATELET VOLUME 7.4 fl (7.4-10.4); PLATELET 315 x1000/uL (130-400); RED BLOOD CELL COUNT 3.35 mill/uL (4.7-6.1); RED CELL DISTRIBUTION WIDTH 17.1 % (11.6-14.6)
[2021-12-28 07:13] LABS: CHLORIDE 100 mEq/L (98-107)
[2021-12-28 07:58] LABS: ATYPICAL LYMPHOCYTES 1
[2021-12-28 07:59] LABS: PLATELET ESTIMATE NORMAL
[2021-12-28 08:00] VITALS: BP 117/76
[2021-12-28] MEDS: LACTULOSE 20G/30ML UDC PO SCH (08:42)
[2021-12-28] MEDS: DOCUSATE SODIUM 250MG CAPSULE PO SCH ×2 (08:43→17:01)
[2021-12-28] MEDS: FOLIC ACID 1MG TABLET PO SCH (08:43)
[2021-12-28] MEDS: THIAMINE HCL 100MG TABLET PO SCH (08:43)
[2021-12-28] MEDS: FUROSEMIDE 40MG/4ML VIAL IVP SCH (08:43)
[2021-12-28] MEDS: CARVEDILOL 3.125 MG TABLET PO SCH ×2 (08:43→20:13)
[2021-12-28] MEDS: POLYETHYLENE GLYCOL 3350 (17GM) 1 DOSE PACK PO SCH (08:43)
[2021-12-28] MEDS: MULTIVITAMINS,THER W-MINERALS TABLET PO SCH (08:43)
[2021-12-28] MEDS ORDERED: POTASSIUM CHLORIDE 20MEQ TABLET SR PO SCH (09:00)
[2021-12-28] MEDS ORDERED: MAGNESIUM 4 G PREMIX 100 ML IV SCH (11:00)
[2021-12-28 12:00] VITALS: BP 110/81
[2021-12-28 16:00] VITALS: BP 98/81
[2021-12-28] MEDS: RIVAROXABAN 15 MG TABLET PO SCH (17:01)
[2021-12-28 20:00] VITALS: BP 98/59
[2021-12-28] MEDS: HYDROCODONE/ACETAMINOPHEN 10/325MG TABLET PO PRN (21:22)
[2021-12-29] VITALS: BP 114/76
[2021-12-29] MEDS: POLYVINYL ALCOHOL OPHTH DROPS 15ML BOTHEYE SCH ×4 (00:07→17:31)
[2021-12-29] MEDS: DILTIAZEM HCL 90MG TABLET PO SCH ×4 (00:07→17:29)
[2021-12-29 04:00] VITALS: BP 117/82
[2021-12-29] MEDS: CHLORDIAZEPOXIDE 25MG CAPSULE PO SCH ×3 (05:29→20:50)
[2021-12-29 08:00] VITALS: BP 115/76
[2021-12-29 08:25] LABS: HEMATOCRIT. 34.9 % (42.0-52.0); HEMOGLOBIN. 11.9 g/dL (14.0-18.0); MEAN CORPUSCULAR HEMOGLOBIN 35.4 pg (28.0-32.0); MEAN CORPUSCULAR VOLUME 103.5 fL (80.0-94.0); MEAN PLATELET VOLUME 7.4 fl (7.4-10.4); PLATELET 390 x1000/uL (130-400); RED BLOOD CELL COUNT 3.37 mill/uL (4.7-6.1); RED CELL DISTRIBUTION WIDTH 16.8 % (11.6-14.6)
[2021-12-29 08:31] LABS: CHLORIDE 104 mEq/L (98-107)
[2021-12-29 08:57] LABS: TOTAL IRON BINDING CAPACITY 264 ug/dL (250-450)
[2021-12-29] MEDS: MULTIVITAMINS,THER W-MINERALS TABLET PO SCH (09:00)
[2021-12-29] MEDS: FOLIC ACID 1MG TABLET PO SCH (09:00)
[2021-12-29] MEDS: FUROSEMIDE 40MG/4ML VIAL IVP SCH (09:00)
[2021-12-29] MEDS: LACTULOSE 20G/30ML UDC PO SCH (09:00)
[2021-12-29] MEDS: CARVEDILOL 3.125 MG TABLET PO SCH ×2 (09:00→20:51)
[2021-12-29] MEDS: DOCUSATE SODIUM 250MG CAPSULE PO SCH ×2 (09:00→17:18)
[2021-12-29] MEDS: POLYETHYLENE GLYCOL 3350 (17GM) 1 DOSE PACK PO SCH (09:00)
[2021-12-29] MEDS: THIAMINE HCL 100MG TABLET PO SCH (09:00)
[2021-12-29 09:02] LABS: VITAMIN B12 SERUM 476 pg/mL (211-911)
[2021-12-29 10:25] LABS: PLATELET ESTIMATE NORMAL
[2021-12-29 12:00] VITALS: BP 110/75
[2021-12-29 12:48] LABS: FERRITIN 456 ng/mL (22-322)
[2021-12-29] MEDS: ACETAMINOPHEN 650MG/20.3ML UDC PO PRN (13:30)
[2021-12-29 15:51] VITALS: BP 106/59
[2021-12-29] MEDS: RIVAROXABAN 15 MG TABLET PO SCH (17:18)
[2021-12-29] MEDS: CYANOCOBALAMIN 1000MCG/ML VIAL IM SCH (17:18)
[2021-12-29] MEDS: MAGNESIUM OXIDE 400MG TABLET PO SCH (17:18)
[2021-12-29 20:00] VITALS: BP 118/78
[2021-12-30] VITALS: BP 124/83
[2021-12-30] MEDS: DILTIAZEM HCL 90MG TABLET PO SCH ×4 (01:19→18:21)
[2021-12-30] MEDS: HYDROCODONE/ACETAMINOPHEN 10/325MG TABLET PO PRN ×2 (01:31→14:05)
[2021-12-30 04:00] VITALS: BP 100/65
[2021-12-30] MEDS: CHLORDIAZEPOXIDE 25MG CAPSULE PO SCH ×3 (05:04→20:09)
[2021-12-30] MEDS: POLYVINYL ALCOHOL OPHTH DROPS 15ML BOTHEYE SCH ×4 (05:05→18:22)
[2021-12-30 08:00] VITALS: BP 117/66
[2021-12-30] MEDS: DOCUSATE SODIUM 250MG CAPSULE PO SCH ×2 (08:52→18:23)
[2021-12-30] MEDS: POLYETHYLENE GLYCOL 3350 (17GM) 1 DOSE PACK PO SCH (08:52)
[2021-12-30] MEDS: FOLIC ACID 1MG TABLET PO SCH (08:52)
[2021-12-30] MEDS: MAGNESIUM OXIDE 400MG TABLET PO SCH (08:52)
[2021-12-30] MEDS: MULTIVITAMINS,THER W-MINERALS TABLET PO SCH (08:52)
[2021-12-30] MEDS: FUROSEMIDE 40MG/4ML VIAL IVP SCH (08:53)
[2021-12-30] MEDS: THIAMINE HCL 100MG TABLET PO SCH (08:53)
[2021-12-30] MEDS: CARVEDILOL 3.125 MG TABLET PO SCH ×2 (08:53→20:09)
[2021-12-30] MEDS: LACTULOSE 20G/30ML UDC PO SCH ×2 (09:10→18:23)
[2021-12-30 12:00] VITALS: BP 107/80
[2021-12-30 16:00] VITALS: BP 114/78
[2021-12-30] MEDS: RIVAROXABAN 15 MG TABLET PO SCH (18:20)
[2021-12-30] MEDS: CYANOCOBALAMIN 1000MCG/ML VIAL IM SCH (18:24)
[2021-12-30 20:00] VITALS: BP 100/56
[2021-12-31] VITALS: BP 115/65
[2021-12-31] MEDS: DILTIAZEM HCL 90MG TABLET PO SCH ×4 (00:24→16:12)
[2021-12-31 04:00] VITALS: BP 102/61
[2021-12-31] MEDS: POLYVINYL ALCOHOL OPHTH DROPS 15ML BOTHEYE SCH ×4 (05:15→16:12)
[2021-12-31] MEDS: ACETAMINOPHEN 650MG/20.3ML UDC PO PRN (05:18)
[2021-12-31 08:00] VITALS: BP 107/73
[2021-12-31] MEDS: LACTULOSE 20G/30ML UDC PO SCH ×2 (08:59→11:57)
[2021-12-31] MEDS: POLYETHYLENE GLYCOL 3350 (17GM) 1 DOSE PACK PO SCH ×2 (08:59→12:15)
[2021-12-31] MEDS: FOLIC ACID 1MG TABLET PO SCH (08:59)
[2021-12-31] MEDS: THIAMINE HCL 100MG TABLET PO SCH (09:00)
[2021-12-31] MEDS: CARVEDILOL 3.125 MG TABLET PO SCH ×2 (09:00→21:00)
[2021-12-31] MEDS: FUROSEMIDE 40MG/4ML VIAL IVP SCH (09:01)
[2021-12-31] MEDS: MULTIVITAMINS,THER W-MINERALS TABLET PO SCH (09:01)
[2021-12-31] MEDS: MAGNESIUM OXIDE 400MG TABLET PO SCH (09:01)
[2021-12-31] MEDS: DOCUSATE SODIUM 250MG CAPSULE PO SCH ×2 (09:02→11:55)
[2021-12-31] MEDS ORDERED: NALOXONE HCL 0.4MG/ML VIAL IV PRN (09:15)
[2021-12-31] MEDS: HYDROCODONE/ACETAMINOPHEN 10/325MG TABLET PO PRN (11:54)
[2021-12-31 12:00] VITALS: BP 111/83
[2021-12-31] MEDS: DOCUSATE SODIUM 100MG CAPSULE PO SCH ×2 (12:15→16:14)
[2021-12-31 16:00] VITALS: BP 98/56
[2021-12-31] MEDS: CYANOCOBALAMIN 1000MCG/ML VIAL IM SCH (16:11)
[2021-12-31] MEDS: RIVAROXABAN 15 MG TABLET PO SCH (16:12)
[2021-12-31 20:00] VITALS: BP 99/61
[2022-01-01 04:00] VITALS: BP 148/104
[2022-01-01] MEDS: DILTIAZEM HCL 90MG TABLET PO SCH ×4 (06:00→18:00)
[2022-01-01] MEDS: POLYVINYL ALCOHOL OPHTH DROPS 15ML BOTHEYE SCH ×3 (06:00→12:00)
[2022-01-01 08:00] VITALS: BP 116/69
[2022-01-01] MEDS: FUROSEMIDE 40MG/4ML VIAL IVP SCH (08:48)
[2022-01-01] MEDS: MULTIVITAMINS,THER W-MINERALS TABLET PO SCH (08:49)
[2022-01-01] MEDS: LACTULOSE 20G/30ML UDC PO SCH ×2 (08:49→18:18)
[2022-01-01] MEDS: MAGNESIUM OXIDE 400MG TABLET PO SCH (08:49)
[2022-01-01] MEDS: THIAMINE HCL 100MG TABLET PO SCH (08:49)
[2022-01-01] MEDS: DOCUSATE SODIUM 100MG CAPSULE PO SCH ×2 (08:53→18:18)
[2022-01-01] MEDS: ACETAMINOPHEN 650MG/20.3ML UDC PO PRN ×3 (08:54→18:17)
[2022-01-01] MEDS: CARVEDILOL 3.125 MG TABLET PO SCH ×2 (09:00→21:00)
[2022-01-01] MEDS: POLYETHYLENE GLYCOL 3350 (17GM) 1 DOSE PACK PO SCH (09:00)
[2022-01-01] MEDS: FOLIC ACID 1MG TABLET PO SCH (09:00)
[2022-01-01 09:55] LABS: HEMATOCRIT. 37.1 % (42.0-52.0); HEMOGLOBIN. 12.5 g/dL (14.0-18.0); MEAN CORPUSCULAR HEMOGLOBIN 36.2 pg (28.0-32.0); MEAN PLATELET VOLUME 7.5 fl (7.4-10.4); PLATELET 488 x1000/uL (130-400); RED BLOOD CELL COUNT 3.47 mill/uL (4.7-6.1)
[2022-01-01 10:45] LABS: CHLORIDE 103 mEq/L (98-107)
[2022-01-01 12:00] VITALS: BP 96/65
[2022-01-01 14:11] LABS: PLATELET ESTIMATE INCREASED
[2022-01-01 16:00] VITALS: BP 110/67
[2022-01-01] MEDS: RIVAROXABAN 20 MG TABLET PO SCH (18:17)
[2022-01-01] MEDS: CYANOCOBALAMIN 1000MCG/ML VIAL IM SCH (18:18)
[2022-01-01 20:00] VITALS: BP 95/62
[2022-01-02] VITALS: BP 100/54
[2022-01-02 04:00] VITALS: BP 117/65
[2022-01-02] MEDS: POLYVINYL ALCOHOL OPHTH DROPS 15ML BOTHEYE SCH ×4 (05:54→17:38)
[2022-01-02] MEDS: DILTIAZEM HCL 90MG TABLET PO SCH ×4 (05:56→18:00)
[2022-01-02 08:00] VITALS: BP 145/95
[2022-01-02] MEDS: FUROSEMIDE 40MG/4ML VIAL IVP SCH (08:23)
[2022-01-02] MEDS: MULTIVITAMINS,THER W-MINERALS TABLET PO SCH (08:23)
[2022-01-02] MEDS: FOLIC ACID 1MG TABLET PO SCH (08:23)
[2022-01-02] MEDS: DOCUSATE SODIUM 100MG CAPSULE PO SCH ×2 (08:24→17:38)
[2022-01-02] MEDS: THIAMINE HCL 100MG TABLET PO SCH (08:24)
[2022-01-02] MEDS: MAGNESIUM OXIDE 400MG TABLET PO SCH (08:24)
[2022-01-02] MEDS: POLYETHYLENE GLYCOL 3350 (17GM) 1 DOSE PACK PO SCH (08:25)
[2022-01-02] MEDS: LACTULOSE 20G/30ML UDC PO SCH ×2 (08:26→17:00)
[2022-01-02] MEDS: ACETAMINOPHEN 650MG/20.3ML UDC PO PRN ×2 (08:27→22:58)
[2022-01-02] MEDS: CARVEDILOL 3.125 MG TABLET PO SCH ×2 (09:00→21:00)
[2022-01-02 12:00] VITALS: BP 103/62
[2022-01-02] MEDS: HYDROCODONE/ACETAMINOPHEN 10/325MG TABLET PO PRN (13:35)
[2022-01-02 16:00] VITALS: BP 90/58
[2022-01-02] MEDS: CYANOCOBALAMIN 1000MCG/ML VIAL IM SCH (17:00)
[2022-01-02] MEDS: RIVAROXABAN 20 MG TABLET PO SCH (17:38)
[2022-01-02 20:00] VITALS: BP 105/75
[2022-01-03] VITALS: BP 120/89
[2022-01-03] MEDS: DILTIAZEM HCL 90MG TABLET PO SCH ×3 (01:50→12:00)
[2022-01-03] MEDS: POLYVINYL ALCOHOL OPHTH DROPS 15ML BOTHEYE SCH ×3 (06:00→12:00)
[2022-01-03 06:46] LABS: HEMATOCRIT. 37.2 % (42.0-52.0); HEMOGLOBIN. 12.4 g/dL (14.0-18.0); MEAN CORPUSCULAR HEMOGLOBIN 35.5 pg (28.0-32.0); MEAN CORPUSCULAR VOLUME 106.5 fL (80.0-94.0); MEAN PLATELET VOLUME 7.5 fl (7.4-10.4); PLATELET 484 x1000/uL (130-400); RED BLOOD CELL COUNT 3.49 mill/uL (4.7-6.1); RED CELL DISTRIBUTION WIDTH 16.1 % (11.6-14.6)
[2022-01-03 07:11] LABS: CHLORIDE 106 mEq/L (98-107)
[2022-01-03 08:00] VITALS: BP 127/95
[2022-01-03] MEDS: THIAMINE HCL 100MG TABLET PO SCH (08:16)
[2022-01-03] MEDS: DOCUSATE SODIUM 100MG CAPSULE PO SCH (08:16)
[2022-01-03] MEDS: ACETAMINOPHEN 650MG/20.3ML UDC PO PRN (08:16)
[2022-01-03] MEDS: FUROSEMIDE 40MG/4ML VIAL IVP SCH (08:16)
[2022-01-03] MEDS: CARVEDILOL 3.125 MG TABLET PO SCH (08:17)
[2022-01-03] MEDS: POLYETHYLENE GLYCOL 3350 (17GM) 1 DOSE PACK PO SCH (08:17)
[2022-01-03] MEDS: LACTULOSE 20G/30ML UDC PO SCH (08:17)
[2022-01-03] MEDS: FOLIC ACID 1MG TABLET PO SCH (08:17)
[2022-01-03] MEDS: MULTIVITAMINS,THER W-MINERALS TABLET PO SCH (08:17)
[2022-01-03] MEDS: MAGNESIUM OXIDE 400MG TABLET PO SCH (08:18)
[2022-01-03 10:59] LABS: PLATELET ESTIMATE INCREASED
[2022-01-03 11:58] VITALS: BP 118/74
[2022-01-03 15:42] VITALS: BP 118/74
[2022-01-04 06:08] LABS: 25-HYDROXY VITAMIN D3 19 ng/mL (.)
== END 2022-01-03 15:55 | disposition home health service (06) | DRG 194 ==
LOC: ER 15:24 → 6WST 19:52 → EDBEDREQ 20:07 → EDBEDREQTM 20:07 → ENRESERV 20:22 → 6WST 12-30 02:10 → 6EST 12-30 13:21
PROVIDERS: ADMIT Internal Medicine; ATTEND Internal Medicine
DX: I11.0 Hypertensive heart disease with heart failure (principal); I21.4 Non-ST elevation (NSTEMI) myocardial infarction; G82.50 Quadriplegia, unspecified; N17.9 Acute kidney failure, unspecified; E87.1 Hypo-osmolality and hyponatremia; G62.1 Alcoholic polyneuropathy; I27.20 Pulmonary hypertension, unspecified; I48.20 Chronic atrial fibrillation, unspecified; D72.819 Decreased white blood cell count, unspecified; S01.81XA Laceration without foreign body of other part of head, initial encounter; I50.23 Acute on chronic systolic (congestive) heart failure; G51.0 Bell's palsy; E87.5 Hyperkalemia; I25.10 Atherosclerotic heart disease of native coronary artery without angina pectoris; D72.821 Monocytosis (symptomatic); J44.9 Chronic obstructive pulmonary disease, unspecified; E80.6 Other disorders of bilirubin metabolism; F10.20 Alcohol dependence, uncomplicated; I42.9 Cardiomyopathy, unspecified; E78.00 Pure hypercholesterolemia, unspecified; K70.30 Alcoholic cirrhosis of liver without ascites; K76.0 Fatty (change of) liver, not elsewhere classified; G62.9 Polyneuropathy, unspecified; F10.239 Alcohol dependence with withdrawal, unspecified; F10.229 Alcohol dependence with intoxication, unspecified; M19.90 Unspecified osteoarthritis, unspecified site; R53.81 Other malaise; R79.89 Other specified abnormal findings of blood chemistry; R74.01 Elevation of levels of liver transaminase levels; R26.9 Unspecified abnormalities of gait and mobility; R26.89 Other abnormalities of gait and mobility; S01.111A Laceration without foreign body of right eyelid and periocular area, initial encounter; S20.211A Contusion of right front wall of thorax, initial encounter; S70.01XA Contusion of right hip, initial encounter; Z91.81 History of falling; Z96.649 Presence of unspecified artificial hip joint; Z79.01 Long term (current) use of anticoagulants; Z86.73 Personal history of transient ischemic attack (TIA), and cerebral infarction without residual deficits; Z91.19 Patient's noncompliance with other medical treatment and regimen; Z87.891 Personal history of nicotine dependence; Z83.3 Family history of diabetes mellitus; W18.30XA Fall on same level, unspecified, initial encounter; Y93.89 Activity, other specified; Y92.89 Other specified places as the place of occurrence of the external cause; Y99.8 Other external cause status
CPT/HCPCS: 36415; 71045; 73522; 74176; 76700; 76770; 80048; 80053; 80061; 80076; 80320; 82140; 82248; 82306; 82533; 82550; 82607; 82728; 82962; 83540; 83550; 83735; 83880; 83930; 84443; 84484; 85025; 85379; 86038; 86160; 86705; 86706; 86709; 86803; 87340; 87426; 92523; 93005; 93306; 97110; 97116; 97162; 97166; 99291; J1940; J2930; J3420; J3475; J7030; G0480

== ENCOUNTER 2022-03-10 00:03 | Inpatient (IN) | payer OTHER ==
[~2022-03-10] VITALS: Ht 195.6 cm; Wt 78.9 kg
[~2022-03-10 00:03] MED LIST changes: -CARV6.2548 MT; -CEPH500T MT; +CHLO25CA10 MT; -COR12 PO; +COR3 PO; +DICL100G31 TP; +FOLI-43 PO; -FURO-151 MT; +FURO20TA4 MT; +LACT10SO7 PO; -LIP40 PO; -LOSA25TA26 MT; -MELO-106 MT; -METO2.5T2 MT; +MULT-230 MT; -POTA-204 PO; -SACU1TAB PO; -SPIR25TA6 MT; +THIA100T72 PO
[2022-03-10] MEDS ORDERED: TETANUS, DIPHTHERIA, PERTUSSIS VAC/PF 0.5ML (>10YR OLD) IM ONE (00:30)
[2022-03-10] MEDS ORDERED: LIDOCAINE HCL/EPINEPHRINE 1%-EPI 1:100,000 50 ML VIAL INFIL ONE (00:30)
[2022-03-10 00:50] LABS: HEMATOCRIT. 36.1 % (42.0-52.0); HEMOGLOBIN. 12.3 g/dL (14.0-18.0); MEAN CORPUSCULAR HEMOGLOBIN 35.9 pg (28.0-32.0); MEAN CORPUSCULAR VOLUME 105.3 fL (80.0-94.0); MEAN PLATELET VOLUME 9.1 fl (7.4-10.4); PLATELET 109 x1000/uL (130-400); RED BLOOD CELL COUNT 3.42 mill/uL (4.7-6.1); RED CELL DISTRIBUTION WIDTH 16.3 % (11.6-14.6)
[2022-03-10 00:57] LABS: CHLORIDE 96 mEq/L (98-107)
[2022-03-10 01:11] LABS: ETHANOL BLOOD 15 mg/dL
[2022-03-10] MEDS ORDERED: IBUPROFEN 600MG TABLET PO ONE (01:30)
[2022-03-10] MEDS ORDERED: LORAZEPAM 2MG/ML CPJ IV NR (01:45)
[2022-03-10] MEDS ORDERED: ASPIRIN 325MG EC TABLET PO NR (01:45)
[2022-03-10] MEDS ORDERED: MAGNESIUM 2 G PREMIX 50 ML IV NR ×2 (01:45→12:30)
[2022-03-10 01:53] LABS: INR 1.2; PARTIAL THROMBOPLASTIN TIME 27.6 sec (23.4-31.0); PROTHROMBIN TIME 13.1 sec (9.6-11.0)
[2022-03-10 02:56] LABS: *AMPHETAMINES SCREEN URINE NEGATIVE (NEGATIVE); *BARBITURATES SCREEN URINE NEGATIVE (NEGATIVE); *BENZODIAZEPINES SCREEN URINE PRESUMTIVE POSITIVE (NEGATIVE); *COCAINE SCREEN URINE NEGATIVE (NEGATIVE); CANNABINOID URINE SCREEN NEGATIVE (NEGATIVE); METHADONE URINE SCREEN NEGATIVE (NEGATIVE); OPIATES URINE SCREEN NEGATIVE (NEGATIVE); PHENCYCLIDINE URINE SCREEN NEGATIVE (NEGATIVE)
[2022-03-10 05:09] LABS: PLATELET ESTIMATE DECREASED
[2022-03-10] MEDS ORDERED: ENOXAPARIN 40MG/0.4ML SYR SUBCUT SCH (10:15)
[2022-03-10] MEDS ORDERED: ACETAMINOPHEN 325MG TABLET PO PRN (10:15)
[2022-03-10] MEDS ORDERED: MAGNESIUM/ALUMINUM HYDROXIDE/SIMETHICONE 30ML UDC PO PRN (10:15)
[2022-03-10] MEDS ORDERED: ONDANSETRON HCL 4MG/2ML INJ IV PRN (10:15)
[2022-03-10] MEDS ORDERED: DOCUSATE SODIUM 100MG CAPSULE PO PRN (10:15)
[2022-03-10 11:32] VITALS: BP 120/81
[2022-03-10 11:46] LABS: CLARITY URINE TURBID (CLEAR); COLOR URINE ORANGE (YELLOW); KETONES URINE TRACE (NEGATIVE); LEUKOCYTE ESTERASE URINE TRACE (NEGATIVE); NITRITE URINE POSITIVE (NEGATIVE); OCCULT BLOOD URINE NEGATIVE (NEGATIVE); PROTEIN URINE 1+ (NEGATIVE); SPECIFIC GRAVITY URINE 1.026 (1.005-1.030)
[2022-03-10 12:00] VITALS: BP 138/79
[2022-03-10] MEDS ORDERED: DILTIAZEM HCL 60MG TABLET PO SCH (12:00)
[2022-03-10] MEDS: ENOXAPARIN 100MG/ML SYR SUBCUT SCH ×2 (14:51→21:09)
[2022-03-10] MEDS: PANTOPRAZOLE SODIUM 40 MG/VIAL IV SCH (14:51)
[2022-03-10] MEDS: FUROSEMIDE 40MG/4ML VIAL IVP SCH (14:51)
[2022-03-10] MEDS: HYDROCODONE/ACETAMINOPHEN 5/325MG TABLET PO PRN ×2 (14:52→21:13)
[2022-03-10 16:00] VITALS: BP_SYST 139; BP_SYST 141; BP_SYST 145; BP_DIAS 78; BP_DIAS 81; BP_DIAS 84
[2022-03-10] MEDS ORDERED: NALOXONE HCL 0.4MG/ML VIAL IV PRN (18:00)
[2022-03-10 20:00] VITALS: BP 126/93
[2022-03-10] MEDS: CARVEDILOL 3.125 MG TABLET PO SCH (21:13)
[2022-03-10] MEDS: DILTIAZEM HCL 60MG TABLET PO SCH (21:14)
[2022-03-10] MEDS: CHLORDIAZEPOXIDE 25MG CAPSULE PO SCH (21:20)
[2022-03-10 23:04] LABS: *AMPHETAMINES SCREEN URINE NEGATIVE (NEGATIVE); *BARBITURATES SCREEN URINE NEGATIVE (NEGATIVE); *BENZODIAZEPINES SCREEN URINE PRESUMTIVE POSITIVE (NEGATIVE); *COCAINE SCREEN URINE NEGATIVE (NEGATIVE); CANNABINOID URINE SCREEN NEGATIVE (NEGATIVE); METHADONE URINE SCREEN NEGATIVE (NEGATIVE); OPIATES URINE SCREEN PRESUMTIVE POSITIVE (NEGATIVE); PHENCYCLIDINE URINE SCREEN NEGATIVE (NEGATIVE)
[2022-03-11] VITALS: BP 113/83
[2022-03-11 04:00] VITALS: BP 123/89
[2022-03-11] MEDS: DILTIAZEM HCL 60MG TABLET PO SCH ×4 (06:26→17:11)
[2022-03-11] MEDS: CHLORDIAZEPOXIDE 25MG CAPSULE PO SCH ×3 (06:26→22:45)
[2022-03-11] MEDS: HYDROCODONE/ACETAMINOPHEN 5/325MG TABLET PO PRN ×5 (06:28→22:43)
[2022-03-11 07:03] LABS: HEMATOCRIT. 35.8 % (42.0-52.0); HEMOGLOBIN. 12.1 g/dL (14.0-18.0); MEAN CORPUSCULAR HEMOGLOBIN 35.6 pg (28.0-32.0); MEAN CORPUSCULAR VOLUME 105.4 fL (80.0-94.0); MEAN PLATELET VOLUME 9.9 fl (7.4-10.4); PLATELET 114 x1000/uL (130-400)
[2022-03-11 07:10] LABS: CHLORIDE 97 mEq/L (98-107)
[2022-03-11 07:24] LABS: HDL CHOLESTEROL 84 mg/dL (40-59); LDL CHOLESTEROL 57 mg/dL (5-100); PHOSPHORUS 2.9 mg/dL (2.5-4.9); T4 FREE 1.23 ng/dL (0.76-1.46)
[2022-03-11 08:00] VITALS: BP 113/80
[2022-03-11] MEDS: PANTOPRAZOLE SODIUM 40 MG/VIAL IV SCH (09:58)
[2022-03-11] MEDS: FOLIC ACID 1MG TABLET PO SCH (09:58)
[2022-03-11] MEDS: FUROSEMIDE 40MG/4ML VIAL IVP SCH (09:58)
[2022-03-11] MEDS: THIAMINE HCL 100MG TABLET PO SCH (09:58)
[2022-03-11] MEDS: MULTIVITAMINS,THER W-MINERALS TABLET PO SCH (09:58)
[2022-03-11] MEDS: CARVEDILOL 3.125 MG TABLET PO SCH ×2 (09:58→22:41)
[2022-03-11] MEDS: ENOXAPARIN 100MG/ML SYR SUBCUT SCH ×2 (09:59→22:40)
[2022-03-11 12:00] VITALS: BP 120/91
[2022-03-11 13:37] LABS: PLATELET ESTIMATE SLIGHTLY DECREASED
[2022-03-11 16:00] VITALS: BP 109/80
[2022-03-11] MEDS ORDERED: IOHEXOL-350 100 ML BOTTLE ONE (16:57)
[2022-03-11 20:00] VITALS: BP 179/130
[2022-03-11] MEDS: CLONIDINE 0.1MG TABLET PO PRN ×2 (21:05→22:44)
[2022-03-11] MEDS: LACTULOSE 20G/30ML UDC PO SCH (22:32)
[2022-03-12] VITALS: BP 97/72
[2022-03-12 04:00] VITALS: BP 101/73
[2022-03-12 05:38] LABS: HEMATOCRIT. 35.5 % (42.0-52.0); HEMOGLOBIN. 12.3 g/dL (14.0-18.0); MEAN CORPUSCULAR HEMOGLOBIN 36.5 pg (28.0-32.0); MEAN CORPUSCULAR VOLUME 105.1 fL (80.0-94.0); MEAN PLATELET VOLUME 9.3 fl (7.4-10.4); PLATELET 120 x1000/uL (130-400); RED BLOOD CELL COUNT 3.37 mill/uL (4.7-6.1)
[2022-03-12 05:48] LABS: CHLORIDE 96 mEq/L (98-107)
[2022-03-12] MEDS: LACTULOSE 20G/30ML UDC PO SCH ×3 (06:00→20:46)
[2022-03-12] MEDS: DILTIAZEM HCL 60MG TABLET PO SCH ×4 (06:00→17:36)
[2022-03-12] MEDS: HYDROCODONE/ACETAMINOPHEN 5/325MG TABLET PO PRN ×4 (06:19→21:29)
[2022-03-12 06:20] LABS: PHOSPHORUS 2.9 mg/dL (2.5-4.9)
[2022-03-12] MEDS: CHLORDIAZEPOXIDE 25MG CAPSULE PO SCH ×3 (06:20→21:29)
[2022-03-12 08:00] VITALS: BP 98/60
[2022-03-12] MEDS: CARVEDILOL 3.125 MG TABLET PO SCH ×2 (08:46→21:30)
[2022-03-12] MEDS: ENOXAPARIN 100MG/ML SYR SUBCUT SCH ×2 (09:12→20:46)
[2022-03-12] MEDS: MULTIVITAMINS,THER W-MINERALS TABLET PO SCH (09:13)
[2022-03-12] MEDS: PANTOPRAZOLE SODIUM 40 MG/VIAL IV SCH (09:13)
[2022-03-12] MEDS: FUROSEMIDE 40MG/4ML VIAL IVP SCH (09:13)
[2022-03-12] MEDS: FOLIC ACID 1MG TABLET PO SCH (09:13)
[2022-03-12] MEDS: THIAMINE HCL 100MG TABLET PO SCH (09:13)
[2022-03-12 10:37] LABS: PLATELET ESTIMATE SLIGHTLY DECREASED
[2022-03-12 12:00] VITALS: BP 101/76
[2022-03-12 16:00] VITALS: BP 134/53
[2022-03-12] MEDS: LIDOCAINE 5% PATCH TOP SCH (18:45)
[2022-03-12 19:59] VITALS: BP 115/76
[2022-03-12] MEDS: FAMOTIDINE 20MG/2ML VIAL IV SCH (21:28)
[2022-03-13] VITALS: BP 110/68
[2022-03-13] MEDS: DILTIAZEM HCL 60MG TABLET PO SCH ×5 (00:57→23:35)
[2022-03-13 04:00] VITALS: BP 124/71
[2022-03-13] MEDS: LACTULOSE 20G/30ML UDC PO SCH ×3 (05:05→21:45)
[2022-03-13] MEDS: CHLORDIAZEPOXIDE 25MG CAPSULE PO SCH ×3 (05:15→21:47)
[2022-03-13 06:17] LABS: HEMATOCRIT. 35.9 % (42.0-52.0); HEMOGLOBIN. 12.2 g/dL (14.0-18.0); MEAN CORPUSCULAR HEMOGLOBIN 35.8 pg (28.0-32.0); MEAN CORPUSCULAR VOLUME 105.9 fL (80.0-94.0); MEAN PLATELET VOLUME 9.2 fl (7.4-10.4); PLATELET 153 x1000/uL (130-400); RED BLOOD CELL COUNT 3.39 mill/uL (4.7-6.1); RED CELL DISTRIBUTION WIDTH 16.6 % (11.6-14.6)
[2022-03-13 07:37] LABS: CHLORIDE 97 mEq/L (98-107)
[2022-03-13 08:00] VITALS: BP 147/81
[2022-03-13] MEDS: FOLIC ACID 1MG TABLET PO SCH (08:49)
[2022-03-13] MEDS: THIAMINE HCL 100MG TABLET PO SCH (08:49)
[2022-03-13] MEDS: MULTIVITAMINS,THER W-MINERALS TABLET PO SCH (08:49)
[2022-03-13] MEDS: CARVEDILOL 3.125 MG TABLET PO SCH (08:50)
[2022-03-13] MEDS: FUROSEMIDE 40MG/4ML VIAL IVP SCH (08:50)
[2022-03-13] MEDS: FAMOTIDINE 20MG/2ML VIAL IV SCH (08:50)
[2022-03-13] MEDS: ENOXAPARIN 100MG/ML SYR SUBCUT SCH (08:51)
[2022-03-13] MEDS: LIDOCAINE 5% PATCH TOP SCH (08:51)
[2022-03-13 11:19] LABS: PLATELET ESTIMATE NORMAL
[2022-03-13 12:30] VITALS: BP_SYST 103; BP_SYST 113; BP_DIAS 74
[2022-03-13] MEDS: HYDROCODONE/ACETAMINOPHEN 5/325MG TABLET PO PRN ×3 (14:49→23:41)
[2022-03-13 16:30] VITALS: BP 103/83
[2022-03-13 20:00] VITALS: BP 112/80
[2022-03-13] MEDS: FAMOTIDINE 20MG TABLET PO SCH (20:53)
[2022-03-13] MEDS: CARVEDILOL 6.25 MG TABLET PO SCH (21:47)
[2022-03-14] VITALS: BP 108/69
[2022-03-14 04:00] VITALS: BP 95/59
[2022-03-14] MEDS: CHLORDIAZEPOXIDE 25MG CAPSULE PO SCH ×3 (05:27→21:36)
[2022-03-14] MEDS: HYDROCODONE/ACETAMINOPHEN 5/325MG TABLET PO PRN ×2 (05:29→20:29)
[2022-03-14] MEDS: LACTULOSE 20G/30ML UDC PO SCH ×4 (05:30→21:40)
[2022-03-14] MEDS: DILTIAZEM HCL 60MG TABLET PO SCH ×3 (05:30→17:47)
[2022-03-14] MEDS: FUROSEMIDE 40MG/4ML VIAL IVP SCH (08:24)
[2022-03-14] MEDS: ENOXAPARIN 100MG/ML SYR SUBCUT SCH (08:24)
[2022-03-14] MEDS: FAMOTIDINE 20MG TABLET PO SCH ×2 (08:25→21:36)
[2022-03-14] MEDS: FOLIC ACID 1MG TABLET PO SCH (08:25)
[2022-03-14] MEDS: THIAMINE HCL 100MG TABLET PO SCH (08:25)
[2022-03-14] MEDS: MULTIVITAMINS,THER W-MINERALS TABLET PO SCH (08:25)
[2022-03-14 08:30] VITALS: BP 108/58
[2022-03-14] MEDS: CARVEDILOL 6.25 MG TABLET PO SCH ×2 (08:30→21:38)
[2022-03-14] MEDS: LIDOCAINE 5% PATCH TOP SCH (08:32)
[2022-03-14 12:30] VITALS: BP 108/73
[2022-03-14 16:00] VITALS: BP 106/72
[2022-03-14 20:21] VITALS: BP 120/84
[2022-03-15] VITALS: BP 116/77
[2022-03-15] MEDS: DILTIAZEM HCL 60MG TABLET PO SCH ×2 (00:16→06:44)
[2022-03-15 04:00] VITALS: BP 125/92
[2022-03-15] MEDS: LACTULOSE 20G/30ML UDC PO SCH ×2 (05:50→14:22)
[2022-03-15] MEDS: CHLORDIAZEPOXIDE 25MG CAPSULE PO SCH ×2 (06:44→14:22)
[2022-03-15 08:00] VITALS: BP 118/83
[2022-03-15 08:30] LABS: CHLORIDE 99 mEq/L (98-107)
[2022-03-15] MEDS: THIAMINE HCL 100MG TABLET PO SCH (09:43)
[2022-03-15] MEDS: FAMOTIDINE 20MG TABLET PO SCH (09:43)
[2022-03-15] MEDS: FOLIC ACID 1MG TABLET PO SCH (09:43)
[2022-03-15] MEDS: CARVEDILOL 6.25 MG TABLET PO SCH (09:43)
[2022-03-15] MEDS: MULTIVITAMINS,THER W-MINERALS TABLET PO SCH (09:43)
[2022-03-15] MEDS: FUROSEMIDE 40MG/4ML VIAL IVP SCH (09:43)
[2022-03-15] MEDS: ENOXAPARIN 100MG/ML SYR SUBCUT SCH (09:44)
[2022-03-15] MEDS: LIDOCAINE 5% PATCH TOP SCH (09:44)
[2022-03-15] MEDS ORDERED: DILT240C96 MT (11:29)
[2022-03-15] MEDS ORDERED: LACT10SO7 PO (11:29)
[2022-03-15] MEDS ORDERED: COR3 PO (11:29)
[2022-03-15] MEDS ORDERED: THIA100T72 PO (11:29)
[2022-03-15] MEDS ORDERED: RIVA20TA PO (11:29)
[2022-03-15] MEDS ORDERED: FOLI-43 PO (11:29)
[2022-03-15] MEDS ORDERED: FAMO40TA7 PO (11:29)
[2022-03-15] MEDS ORDERED: FURO20TA4 MT (11:29)
[2022-03-15] MEDS ORDERED: MULT-230 MT (11:29)
[2022-03-15 12:00] VITALS: BP 103/65
[2022-03-15 13:29] LABS: HEMATOCRIT. 37.1 % (42.0-52.0); HEMOGLOBIN. 12.5 g/dL (14.0-18.0); MEAN CORPUSCULAR HEMOGLOBIN 36.2 pg (28.0-32.0); MEAN CORPUSCULAR VOLUME 107.5 fL (80.0-94.0); MEAN PLATELET VOLUME 8.8 fl (7.4-10.4); PLATELET 224 x1000/uL (130-400); RED BLOOD CELL COUNT 3.45 mill/uL (4.7-6.1); RED CELL DISTRIBUTION WIDTH 17.1 % (11.6-14.6)
[2022-03-15] MEDS ORDERED: DILTIAZEM HCL 60MG TABLET PO SCH (14:00)
[2022-03-15 14:29] LABS: PLATELET ESTIMATE NORMAL
[2022-03-15 14:47] VITALS: BP 103/65
[2022-03-15 16:00] VITALS: BP 113/78
[2022-03-15] MEDS ORDERED: RIVAROXABAN 10 MG TABLET PO SCH (17:00)
== END 2022-03-15 18:22 | disposition home or self-care (01) | DRG 48 ==
LOC: ER 00:12 → MICUSO 04:38 → 6WST 07:47
PROVIDERS: ADMIT Internal Medicine; ATTEND Internal Medicine
PROC: 0HQ0XZZ Repair Scalp Skin, External Approach (ICD-10-PCS; principal; 2022-03-10)
DX: G90.8 Other disorders of autonomic nervous system (principal); I42.9 Cardiomyopathy, unspecified; I50.9 Heart failure, unspecified; I11.0 Hypertensive heart disease with heart failure; S01.81XA Laceration without foreign body of other part of head, initial encounter; S01.112A Laceration without foreign body of left eyelid and periocular area, initial encounter; E78.00 Pure hypercholesterolemia, unspecified; K70.30 Alcoholic cirrhosis of liver without ascites; I48.91 Unspecified atrial fibrillation; E83.42 Hypomagnesemia; F10.239 Alcohol dependence with withdrawal, unspecified; J44.9 Chronic obstructive pulmonary disease, unspecified; I25.10 Atherosclerotic heart disease of native coronary artery without angina pectoris; M19.90 Unspecified osteoarthritis, unspecified site; F10.20 Alcohol dependence, uncomplicated; R74.01 Elevation of levels of liver transaminase levels; K80.20 Calculus of gallbladder without cholecystitis without obstruction; I34.0 Nonrheumatic mitral (valve) insufficiency; I37.1 Nonrheumatic pulmonary valve insufficiency; Z79.01 Long term (current) use of anticoagulants; Z87.891 Personal history of nicotine dependence; Z91.14 Patient's other noncompliance with medication regimen; Z86.73 Personal history of transient ischemic attack (TIA), and cerebral infarction without residual deficits; W19.XXXA Unspecified fall, initial encounter; Y93.89 Activity, other specified; Y92.89 Other specified places as the place of occurrence of the external cause; Y99.8 Other external cause status
CPT/HCPCS: 36415; 71045; 71275; 72170; 76700; 80048; 80053; 80061; 80076; 80305; 80320; 81003; 82140; 83735; 83880; 84100; 84439; 84443; 84484; 85025; 85379; 90715; 93005; 93306; 93880; 93970; 97162; 97165; 99285; C9113; J1650; J1940; J2060; J3475; J3490; Q9967; G0480

== ENCOUNTER 2022-03-22 10:35 | Inpatient (IN) | payer OTHER ==
[~2022-03-22] VITALS: Ht 182.9 cm; Wt 93.4 kg
[~2022-03-22 10:35] MED LIST changes: -BENZ100C86 MT; -CHLO25CA10 MT; -DICL100G31 TP; -DIGO125T80 MT; -PEG15DRO14 EACHEYE; -TOPUD MT; -[UNRECOGNIZED DRUG - CODE] PO
[2022-03-22 12:13] LABS: HEMATOCRIT. 34.3 % (42.0-52.0); HEMOGLOBIN. 11.5 g/dL (14.0-18.0); MEAN CORPUSCULAR HEMOGLOBIN 35.9 pg (28.0-32.0); MEAN CORPUSCULAR VOLUME 106.6 fL (80.0-94.0); MEAN PLATELET VOLUME 7.4 fl (7.4-10.4); PLATELET 340 x1000/uL (130-400); RED BLOOD CELL COUNT 3.21 mill/uL (4.7-6.1)
[2022-03-22 12:16] LABS: CHLORIDE 103 mEq/L (98-107)
[2022-03-22 12:42] LABS: PLATELET ESTIMATE NORMAL
[2022-03-22] MEDS ORDERED: KETOROLAC 15MG/ML VIAL IV ONE (12:45)
[2022-03-22] MEDS ORDERED: DILTIAZEM HCL 5MG/ML 5ML VIAL IV NR (15:00)
[2022-03-22] MEDS: FUROSEMIDE 40MG/4ML VIAL IVP SCH (15:30)
[2022-03-22] MEDS ORDERED: ACETAMINOPHEN 325MG TABLET PO ONE (15:45)
[2022-03-22] MEDS ORDERED: ENOXAPARIN 80MG/0.8ML SYR SUBCUT NR (16:00)
[2022-03-22] MEDS ORDERED: DILTIAZEM HCL 120MG CAPSULE ER 24HR PO NR (16:00)
[2022-03-22 16:29] LABS: INR 1.1; PROTHROMBIN TIME 12.1 sec (9.6-11.0)
[2022-03-22 17:30] VITALS: BP 130/74
[2022-03-22 20:00] VITALS: BP 98/67
[2022-03-22] MEDS: CARVEDILOL 6.25 MG TABLET PO SCH (21:00)
[2022-03-22] MEDS ORDERED: CARVEDILOL 3.125 MG TABLET PO SCH (21:00)
[2022-03-22] MEDS: FAMOTIDINE 20MG TABLET PO SCH (21:18)
[2022-03-22] MEDS: GABAPENTIN 300MG CAPSULE PO SCH (21:18)
[2022-03-23] VITALS: BP 135/96
[2022-03-23] MEDS: DILTIAZEM HCL 60MG TABLET PO SCH ×3 (01:09→12:00)
[2022-03-23] MEDS: HYDROCODONE/ACETAMINOPHEN 10/325MG TABLET PO PRN ×2 (01:21→09:56)
[2022-03-23] MEDS ORDERED: NALOXONE HCL 0.4MG/ML VIAL IV PRN (01:30)
[2022-03-23 04:00] VITALS: BP 136/87
[2022-03-23] MEDS: GABAPENTIN 300MG CAPSULE PO SCH ×2 (05:56→13:53)
[2022-03-23] MEDS ORDERED: ENOXAPARIN 80MG/0.8ML SYR SUBCUT SCH (06:00)
[2022-03-23 07:19] LABS: HEMATOCRIT. 33.7 % (42.0-52.0); HEMOGLOBIN. 11.6 g/dL (14.0-18.0); MEAN CORPUSCULAR HEMOGLOBIN 36.4 pg (28.0-32.0); MEAN CORPUSCULAR VOLUME 105.7 fL (80.0-94.0); MEAN PLATELET VOLUME 7.8 fl (7.4-10.4); PLATELET 316 x1000/uL (130-400); RED BLOOD CELL COUNT 3.19 mill/uL (4.7-6.1); RED CELL DISTRIBUTION WIDTH 16.2 % (11.6-14.6)
[2022-03-23 08:18] LABS: CHLORIDE 101 mEq/L (98-107)
[2022-03-23] MEDS ORDERED: THIAMINE HCL 100MG TABLET PO SCH (09:00)
[2022-03-23] MEDS ORDERED: ASPIRIN 81MG TABLET PO SCH (09:00)
[2022-03-23] MEDS ORDERED: DILTIAZEM HCL 120MG CAPSULE ER 24HR PO SCH (09:00)
[2022-03-23] MEDS ORDERED: FUROSEMIDE 40MG TABLET PO SCH (09:00)
[2022-03-23] MEDS ORDERED: FOLIC ACID 1MG TABLET PO SCH (09:00)
[2022-03-23] MEDS ORDERED: LACTULOSE 20G/30ML UDC PO PRN (09:00)
[2022-03-23] MEDS ORDERED: MULTIVITAMINS,THER W-MINERALS TABLET PO SCH (09:00)
[2022-03-23] MEDS: FUROSEMIDE 40MG/4ML VIAL IVP SCH (09:40)
[2022-03-23] MEDS: FAMOTIDINE 20MG TABLET PO SCH (09:41)
[2022-03-23] MEDS: CARVEDILOL 6.25 MG TABLET PO SCH (09:44)
[2022-03-23 10:00] VITALS: BP 110/75
[2022-03-23 12:00] VITALS: BP 104/69
[2022-03-23 16:54] VITALS: BP 123/86
[2022-03-23] MEDS ORDERED: RIVAROXABAN 10 MG TABLET PO SCH (17:00)
[2022-03-23 19:47] LABS: PLATELET ESTIMATE NORMAL
[2022-03-24 20:00] VITALS: BP 117/49
[2022-03-25] VITALS: BP 118/59
== END 2022-03-23 18:10 | disposition home or self-care (01) | DRG 384 ==
LOC: ER 10:35 → 6WST 14:51 → EDBEDREQ 14:53 → EDBEDREQTM 14:53
PROVIDERS: ADMIT Internal Medicine; ATTEND Internal Medicine
DX: S20.219A Contusion of unspecified front wall of thorax, initial encounter (principal); I50.23 Acute on chronic systolic (congestive) heart failure; I42.0 Dilated cardiomyopathy; D68.69 Other thrombophilia; I48.91 Unspecified atrial fibrillation; E78.00 Pure hypercholesterolemia, unspecified; E11.9 Type 2 diabetes mellitus without complications; G51.0 Bell's palsy; K70.30 Alcoholic cirrhosis of liver without ascites; I11.0 Hypertensive heart disease with heart failure; M94.0 Chondrocostal junction syndrome [Tietze]; I25.10 Atherosclerotic heart disease of native coronary artery without angina pectoris; J44.9 Chronic obstructive pulmonary disease, unspecified; M19.90 Unspecified osteoarthritis, unspecified site; F41.9 Anxiety disorder, unspecified; F10.20 Alcohol dependence, uncomplicated; R29.6 Repeated falls; R74.01 Elevation of levels of liver transaminase levels; I25.2 Old myocardial infarction; Z91.199 Patient's noncompliance with other medical treatment and regimen due to unspecified reason; Z86.73 Personal history of transient ischemic attack (TIA), and cerebral infarction without residual deficits; Z83.3 Family history of diabetes mellitus; Z87.891 Personal history of nicotine dependence; Z82.49 Family history of ischemic heart disease and other diseases of the circulatory system; W19.XXXA Unspecified fall, initial encounter; Y93.89 Activity, other specified; Y92.89 Other specified places as the place of occurrence of the external cause; Y99.8 Other external cause status
CPT/HCPCS: 36415; 71045; 80048; 80053; 83735; 83880; 84484; 85025; 93005; 99285; J1650; J1885; J1940; J3490

== ENCOUNTER 2022-03-30 22:11 | Inpatient (IN) | payer OTHER ==
[~2022-03-30] VITALS: Ht 193 cm; Wt 96.2 kg
[~2022-03-30 22:11] MED LIST changes: -RIVA20TA PO
[2022-03-30] MEDS ORDERED: MORPHINE SULFATE 4 MG/ML CPJ (NOT FOR IM USE) IV STA (23:23)
[2022-03-30] MEDS ORDERED: ONDANSETRON HCL 4MG/2ML INJ IV STA (23:23)
[2022-03-31] LABS: HEMATOCRIT. 35.6 % (42.0-52.0); MEAN CORPUSCULAR VOLUME 106.2 fL (80.0-94.0); MEAN PLATELET VOLUME 7.8 fl (7.4-10.4); PLATELET 203 x1000/uL (130-400); RED BLOOD CELL COUNT 3.35 mill/uL (4.7-6.1); RED CELL DISTRIBUTION WIDTH 16.1 % (11.6-14.6)
[2022-03-31 00:12] LABS: CHLORIDE 100 mEq/L (98-107)
[2022-03-31] MEDS ORDERED: DILTIAZEM HCL 5MG/ML 5ML VIAL IV ONE (03:15)
[2022-03-31 10:18] LABS: PLATELET ESTIMATE NORMAL
[2022-03-31] MEDS ORDERED: IPRATROPIUM BROMIDE (0.02%) 0.5MG/2.5ML NEB HHN PRN (12:30)
[2022-03-31 13:00] VITALS: BP 128/92
[2022-03-31] MEDS ORDERED: ONDANSETRON HCL 4MG/2ML INJ IV PRN (14:45)
[2022-03-31] MEDS ORDERED: ACETAMINOPHEN 325MG TABLET PO PRN (14:45)
[2022-03-31] MEDS ORDERED: CARVEDILOL 6.25 MG TABLET PO NR (14:45)
[2022-03-31] MEDS ORDERED: *PATIENT'S OWN MEDICATION STORAGE XX SCH (15:15)
[2022-03-31 16:00] VITALS: BP 119/83
[2022-03-31] MEDS: ASPIRIN 81MG EC TABLET PO SCH (16:15)
[2022-03-31] MEDS: GABAPENTIN 300MG CAPSULE PO SCH (16:15)
[2022-03-31] MEDS: FOLIC ACID 1MG TABLET PO SCH (16:15)
[2022-03-31] MEDS: THIAMINE HCL 100MG TABLET PO SCH (16:16)
[2022-03-31] MEDS: FUROSEMIDE 40MG TABLET PO SCH (16:16)
[2022-03-31] MEDS: FAMOTIDINE 20MG TABLET PO SCH (16:16)
[2022-03-31] MEDS ORDERED: NALOXONE HCL 0.4MG/ML VIAL IV PRN (17:00)
[2022-03-31] MEDS: HYDROCODONE/ACETAMINOPHEN 5/325MG TABLET PO PRN ×2 (17:08→21:12)
[2022-03-31 20:00] VITALS: BP 116/74
[2022-03-31] MEDS ORDERED: CARVEDILOL 6.25 MG TABLET PO SCH (21:00)
[2022-03-31] MEDS: CARVEDILOL 12.5MG TABLET PO SCH (21:11)
[2022-03-31] MEDS: BUDESONIDE 0.5MG/2ML NEB HHN SCH ×2 (21:40→21:45)
[2022-03-31] MEDS: IPRATROPIUM BROMIDE (0.02%) 0.5MG/2.5ML NEB HHN SCH ×2 (21:40→21:45)
[2022-04-01] VITALS (7 sets, daily range): BP systolic 94–105; BP diastolic 67–80
[2022-04-01] MEDS: HYDROCODONE/ACETAMINOPHEN 5/325MG TABLET PO PRN ×4 (03:10→20:41)
[2022-04-01] MEDS: IPRATROPIUM BROMIDE (0.02%) 0.5MG/2.5ML NEB HHN SCH ×4 (04:10→21:28)
[2022-04-01] MEDS: BUDESONIDE 0.5MG/2ML NEB HHN SCH ×2 (07:50→21:28)
[2022-04-01] MEDS: LACTULOSE 20G/30ML UDC PO SCH ×2 (09:00→09:08)
[2022-04-01] MEDS: CARVEDILOL 12.5MG TABLET PO SCH (09:00)
[2022-04-01] MEDS: GABAPENTIN 300MG CAPSULE PO SCH ×3 (09:08→18:42)
[2022-04-01] MEDS: FUROSEMIDE 40MG TABLET PO SCH (09:09)
[2022-04-01] MEDS: FAMOTIDINE 20MG TABLET PO SCH ×2 (09:09→18:42)
[2022-04-01] MEDS: THIAMINE HCL 100MG TABLET PO SCH (09:09)
[2022-04-01] MEDS: ASPIRIN 81MG EC TABLET PO SCH (09:09)
[2022-04-01] MEDS: FOLIC ACID 1MG TABLET PO SCH (09:09)
[2022-04-01] MEDS ORDERED: CARVEDILOL 3.125 MG TABLET PO NR (10:30)
[2022-04-01] MEDS: CARVEDILOL 6.25 MG TABLET PO SCH (20:40)
[2022-04-02] VITALS (8 sets, daily range): BP systolic 97–129; BP diastolic 62–90
[2022-04-02] MEDS: IPRATROPIUM BROMIDE (0.02%) 0.5MG/2.5ML NEB HHN SCH ×4 (01:07→21:33)
[2022-04-02] MEDS: HYDROCODONE/ACETAMINOPHEN 5/325MG TABLET PO PRN ×4 (04:34→22:48)
[2022-04-02] MEDS: BUDESONIDE 0.5MG/2ML NEB HHN SCH ×2 (07:53→21:33)
[2022-04-02] MEDS: LACTULOSE 20G/30ML UDC PO SCH (08:17)
[2022-04-02] MEDS: CARVEDILOL 6.25 MG TABLET PO SCH ×2 (08:18→21:06)
[2022-04-02] MEDS: FUROSEMIDE 40MG TABLET PO SCH (08:18)
[2022-04-02] MEDS: GABAPENTIN 300MG CAPSULE PO SCH ×3 (08:18→17:53)
[2022-04-02] MEDS: ASPIRIN 81MG EC TABLET PO SCH (08:18)
[2022-04-02] MEDS: FOLIC ACID 1MG TABLET PO SCH (08:18)
[2022-04-02] MEDS: FAMOTIDINE 20MG TABLET PO SCH ×2 (08:18→17:53)
[2022-04-02] MEDS: THIAMINE HCL 100MG TABLET PO SCH (08:18)
[2022-04-03] VITALS: BP 121/85
[2022-04-03] MEDS: IPRATROPIUM BROMIDE (0.02%) 0.5MG/2.5ML NEB HHN SCH ×3 (01:39→13:35)
[2022-04-03 04:00] VITALS: BP 129/95
[2022-04-03] MEDS: HYDROCODONE/ACETAMINOPHEN 5/325MG TABLET PO PRN ×2 (04:51→11:07)
[2022-04-03] MEDS: BUDESONIDE 0.5MG/2ML NEB HHN SCH (07:53)
[2022-04-03 08:00] VITALS: BP 112/78
[2022-04-03] MEDS: GABAPENTIN 300MG CAPSULE PO SCH ×2 (09:11→12:12)
[2022-04-03] MEDS: FOLIC ACID 1MG TABLET PO SCH (09:11)
[2022-04-03] MEDS: THIAMINE HCL 100MG TABLET PO SCH (09:11)
[2022-04-03] MEDS: LACTULOSE 20G/30ML UDC PO SCH (09:11)
[2022-04-03] MEDS: ASPIRIN 81MG EC TABLET PO SCH (09:11)
[2022-04-03] MEDS: FAMOTIDINE 20MG TABLET PO SCH (09:12)
[2022-04-03] MEDS: FUROSEMIDE 40MG TABLET PO SCH (09:12)
[2022-04-03] MEDS: CARVEDILOL 6.25 MG TABLET PO SCH (09:13)
[2022-04-03 12:00] VITALS: BP 118/84
[2022-04-03 15:12] VITALS: BP 118/84
== END 2022-04-03 17:06 | disposition home or self-care (01) | DRG 201 ==
LOC: ER 22:11 → 8WST 03-31 05:29 → ENRESERV 03-31 11:49
PROVIDERS: ADMIT Internal Medicine; ATTEND Internal Medicine
DX: I48.91 Unspecified atrial fibrillation (principal); J96.00 Acute respiratory failure, unspecified whether with hypoxia or hypercapnia; I50.23 Acute on chronic systolic (congestive) heart failure; E44.1 Mild protein-calorie malnutrition; E83.51 Hypocalcemia; I42.9 Cardiomyopathy, unspecified; I11.0 Hypertensive heart disease with heart failure; D72.819 Decreased white blood cell count, unspecified; E11.9 Type 2 diabetes mellitus without complications; Z20.822 Contact with and (suspected) exposure to COVID-19; J44.9 Chronic obstructive pulmonary disease, unspecified; I25.10 Atherosclerotic heart disease of native coronary artery without angina pectoris; E78.5 Hyperlipidemia, unspecified; R74.01 Elevation of levels of liver transaminase levels; E78.00 Pure hypercholesterolemia, unspecified; G89.29 Other chronic pain; M25.562 Pain in left knee; F10.10 Alcohol abuse, uncomplicated; F17.210 Nicotine dependence, cigarettes, uncomplicated; Z79.82 Long term (current) use of aspirin; Z68.25 Body mass index [BMI] 25.0-25.9, adult; Z86.73 Personal history of transient ischemic attack (TIA), and cerebral infarction without residual deficits; Z79.899 Other long term (current) drug therapy; Z82.49 Family history of ischemic heart disease and other diseases of the circulatory system; Z83.3 Family history of diabetes mellitus
CPT/HCPCS: 36415; 71045; 73562; 80053; 83880; 84484; 85025; 87426; 93005; 94640; 97162; 97166; 99285; C9803; J2270; J2405; J3490; J7626

== ENCOUNTER 2022-04-12 10:44 | Inpatient (IN) | payer MEDICAID, OTHER ==
[~2022-04-12] VITALS: Ht 195.6 cm; Wt 93.2 kg
[2022-04-12 12:44] LABS: HEMATOCRIT. 35.2 % (42.0-52.0); HEMOGLOBIN. 11.8 g/dL (14.0-18.0); MEAN CORPUSCULAR HEMOGLOBIN 35.7 pg (28.0-32.0); MEAN CORPUSCULAR VOLUME 106.7 fL (80.0-94.0); MEAN PLATELET VOLUME 8.1 fl (7.4-10.4); PLATELET 225 x1000/uL (130-400); RED CELL DISTRIBUTION WIDTH 16.1 % (11.6-14.6)
[2022-04-12 14:13] LABS: PLATELET ESTIMATE NORMAL
[2022-04-12] MEDS ORDERED: KETOROLAC 15MG/ML VIAL IV ONE (17:15)
[2022-04-12] MEDS ORDERED: IOHEXOL-350 100 ML BOTTLE ONE (18:06)
[2022-04-12 19:44] LABS: ETHANOL BLOOD < 10 mg/dL
[2022-04-12 20:32] LABS: CHLORIDE 108 mEq/L (98-107)
[2022-04-13] MEDS: HYDROCODONE/ACETAMINOPHEN 10/325MG TABLET PO PRN ×3 (04:39→18:00)
[2022-04-13] MEDS ORDERED: ONDANSETRON HCL 4MG/2ML INJ IV PRN (10:45)
[2022-04-13] MEDS: FUROSEMIDE 40MG TABLET PO SCH ×2 (11:01→17:59)
[2022-04-13] MEDS: CARVEDILOL 6.25 MG TABLET PO SCH ×2 (11:01→21:00)
[2022-04-13] MEDS: ASPIRIN 81MG TABLET PO SCH (11:01)
[2022-04-13 12:00] VITALS: BP 135/92
[2022-04-13] MEDS ORDERED: NALOXONE HCL 0.4MG/ML VIAL IV PRN (12:45)
[2022-04-13] MEDS ORDERED: ENOXAPARIN 100MG/ML SYR SUBCUT NR (14:00)
[2022-04-13 14:02] VITALS: BP 135/92
[2022-04-13 16:00] VITALS: BP 142/86
[2022-04-13 16:15] LABS: INR 1.2
[2022-04-13] MEDS: LOSARTAN POTASSIUM 50 MG TABLET PO SCH (18:00)
[2022-04-13] MEDS: ENOXAPARIN 100MG/ML SYR SUBCUT NR (18:00)
[2022-04-13] MEDS: DILTIAZEM HCL 60MG TABLET PO SCH (18:01)
[2022-04-14] VITALS (7 sets, daily range): BP systolic 91–130; BP diastolic 24–96
[2022-04-14] MEDS: DILTIAZEM HCL 60MG TABLET PO SCH ×4 (00:42→16:30)
[2022-04-14] MEDS: FUROSEMIDE 40MG TABLET PO SCH ×2 (06:43→16:29)
[2022-04-14] MEDS: ENOXAPARIN 100MG/ML SYR SUBCUT NR ×2 (06:44→16:29)
[2022-04-14 08:00] LABS: BASOPHILS % 0.9 % (0.0-2.0); EOSINOPHILS % 0.7 % (0.0-5.0); HEMATOCRIT. 40.5 % (42.0-52.0); HEMOGLOBIN. 13.5 g/dL (14.0-18.0); LYMPHOCYTES % 8.1 % (20.0-50.0); MEAN CORPUSCULAR HEMOGLOBIN 35.5 pg (28.0-32.0); MEAN CORPUSCULAR VOLUME 106.2 fL (80.0-94.0); MONOCYTES % 12.4 % (2.0-8.0); NEUTROPHILS % 77.9 % (40.0-76.0); PLATELET 260 x1000/uL (130-400); RED BLOOD CELL COUNT 3.81 mill/uL (4.7-6.1); RED CELL DISTRIBUTION WIDTH 15.4 % (11.6-14.6)
[2022-04-14] MEDS: CARVEDILOL 6.25 MG TABLET PO SCH ×2 (08:30→20:42)
[2022-04-14] MEDS: ASPIRIN 81MG TABLET PO SCH (08:30)
[2022-04-14] MEDS: LOSARTAN POTASSIUM 50 MG TABLET PO SCH (08:30)
[2022-04-14 11:49] LABS: CHLORIDE 99 mEq/L (98-107)
[2022-04-15 00:15] VITALS: BP 109/78
[2022-04-15 04:15] VITALS: BP_SYST 118; BP_SYST 91; BP_DIAS 64; BP_DIAS 69
[2022-04-15] MEDS: DILTIAZEM HCL 60MG TABLET PO SCH ×3 (05:36→12:59)
[2022-04-15] MEDS: ENOXAPARIN 100MG/ML SYR SUBCUT NR (05:36)
[2022-04-15] MEDS: HYDROCODONE/ACETAMINOPHEN 10/325MG TABLET PO PRN (05:36)
[2022-04-15] MEDS: FUROSEMIDE 40MG TABLET PO SCH (06:17)
[2022-04-15 08:00] VITALS: BP 98/73
[2022-04-15 08:07] LABS: HEMOGLOBIN. 14.2 g/dL (14.0-18.0); MEAN CORPUSCULAR HEMOGLOBIN 35.3 pg (28.0-32.0); MEAN CORPUSCULAR VOLUME 104.6 fL (80.0-94.0); MEAN PLATELET VOLUME 8.6 fl (7.4-10.4); PLATELET 290 x1000/uL (130-400); RED BLOOD CELL COUNT 4.01 mill/uL (4.7-6.1); RED CELL DISTRIBUTION WIDTH 15.5 % (11.6-14.6)
[2022-04-15 08:21] LABS: CHLORIDE 96 mEq/L (98-107)
[2022-04-15] MEDS: CARVEDILOL 6.25 MG TABLET PO SCH (09:00)
[2022-04-15] MEDS: LOSARTAN POTASSIUM 50 MG TABLET PO SCH (09:00)
[2022-04-15] MEDS: ASPIRIN 81MG TABLET PO SCH (09:16)
[2022-04-15 12:00] VITALS: BP 114/75
[2022-04-15] MEDS ORDERED: TAM75 MT (12:03)
[2022-04-15] MEDS ORDERED: THROAT LOZENGES-BENZOCAINE/MENTH/CETYLPYRD CL LOZENGES MM PRN (13:00)
[2022-04-15 13:13] LABS: PLATELET ESTIMATE NORMAL
== END 2022-04-15 15:15 | disposition home or self-care (01) | DRG 201 ==
LOC: ER 10:44 → MICUSO 19:47 → 7WST 04-13 12:28
PROVIDERS: ADMIT Internal Medicine; ATTEND Internal Medicine
DX: I48.19 Other persistent atrial fibrillation (principal); I50.23 Acute on chronic systolic (congestive) heart failure; I42.0 Dilated cardiomyopathy; E44.1 Mild protein-calorie malnutrition; I71.21 Aneurysm of the ascending aorta, without rupture; D64.9 Anemia, unspecified; E11.9 Type 2 diabetes mellitus without complications; E78.00 Pure hypercholesterolemia, unspecified; I11.0 Hypertensive heart disease with heart failure; G51.0 Bell's palsy; K70.30 Alcoholic cirrhosis of liver without ascites; E78.5 Hyperlipidemia, unspecified; F10.10 Alcohol abuse, uncomplicated; J44.9 Chronic obstructive pulmonary disease, unspecified; I25.10 Atherosclerotic heart disease of native coronary artery without angina pectoris; J11.1 Influenza due to unidentified influenza virus with other respiratory manifestations; F41.9 Anxiety disorder, unspecified; R29.6 Repeated falls; Z91.199 Patient's noncompliance with other medical treatment and regimen due to unspecified reason; Z87.891 Personal history of nicotine dependence; Z86.73 Personal history of transient ischemic attack (TIA), and cerebral infarction without residual deficits; Z83.3 Family history of diabetes mellitus; Z82.49 Family history of ischemic heart disease and other diseases of the circulatory system; Z79.01 Long term (current) use of anticoagulants; Z68.24 Body mass index [BMI] 24.0-24.9, adult
CPT/HCPCS: 36415; 71045; 71275; 80048; 80053; 80320; 83735; 83880; 84484; 85025; 85379; 87426; 87804; 93005; 99285; J1650; J1885; Q9967; G0480

== ENCOUNTER 2022-10-25 21:12 | Inpatient (IN) | payer MEDICAID ==
[~2022-10-25] VITALS: Ht 188 cm; Wt 87.3 kg
[2022-10-25] MEDS ORDERED: SODIUM CHLORIDE 0.9% 1,000 ML IV ONE (22:00)
[2022-10-25 22:26] LABS: HEMATOCRIT. 36.4 % (42.0-52.0); HEMOGLOBIN. 12.2 g/dL (14.0-18.0); MEAN CORPUSCULAR HEMOGLOBIN 33.3 pg (28.0-32.0); MEAN CORPUSCULAR VOLUME 99.8 fL (80.0-94.0); PLATELET 109 x1000/uL (130-400); RED BLOOD CELL COUNT 3.65 mill/uL (4.7-6.1); RED CELL DISTRIBUTION WIDTH 16.3 % (11.6-14.6)
[2022-10-25 22:33] LABS: CHLORIDE 97 mEq/L (98-107)
[2022-10-25 22:42] LABS: ETHANOL BLOOD < 10 mg/dL (-10)
[2022-10-25 22:53] LABS: NUCLEATED RED BLOOD CELLS 1 /100 WBC
[2022-10-25 22:54] LABS: PLATELET ESTIMATE DECREASED
[2022-10-26] MEDS ORDERED: SODIUM CHLORIDE 0.9% 1,000 ML IV ONE (00:45)
[2022-10-26] MEDS: HYDROCODONE/ACETAMINOPHEN 10/325MG TABLET PO PRN ×3 (05:13→23:04)
[2022-10-26 06:23] LABS: INR 1.4; PROTHROMBIN TIME 15.1 sec (9.6-11.0)
[2022-10-26 09:00] VITALS: BP 97/72; PULSE 88; RESP 20; TEMP 98
[2022-10-26] MEDS ORDERED: NALOXONE HCL 0.4MG/ML VIAL IV PRN (09:15)
[2022-10-26] MEDS ORDERED: ONDANSETRON HCL 4MG/2ML INJ IV PRN (09:30)
[2022-10-26 12:00] VITALS: BP 93/54; PULSE 91; RESP 20; TEMP 98
[2022-10-26 16:00] VITALS: BP 98/72; PULSE 97; RESP 20; TEMP 97.8
[2022-10-26 16:31] LABS: CLARITY URINE CLEAR (CLEAR); COLOR URINE DARK YELLOW (YELLOW); KETONES URINE TRACE (NEGATIVE); LEUKOCYTE ESTERASE URINE TRACE (NEGATIVE); NITRITE URINE NEGATIVE (NEGATIVE); OCCULT BLOOD URINE NEGATIVE (NEGATIVE); PH URINE 5.5 (4.5-8.0); PROTEIN URINE NEGATIVE (NEGATIVE); SPECIFIC GRAVITY URINE 1.025 (1.005-1.030)
[2022-10-26 16:48] LABS: *AMPHETAMINES SCREEN URINE PRESUMTIVE POSITIVE (NEGATIVE); *BARBITURATES SCREEN URINE NEGATIVE (NEGATIVE); *BENZODIAZEPINES SCREEN URINE PRESUMTIVE POSITIVE (NEGATIVE); *COCAINE SCREEN URINE PRESUMTIVE POSITIVE (NEGATIVE); CANNABINOID URINE SCREEN NEGATIVE (NEGATIVE); METHADONE URINE SCREEN NEGATIVE (NEGATIVE); OPIATES URINE SCREEN PRESUMTIVE POSITIVE (NEGATIVE); PHENCYCLIDINE URINE SCREEN NEGATIVE (NEGATIVE)
[2022-10-26 20:00] VITALS: BP 98/69; PULSE 109; RESP 16; TEMP 97.9
[2022-10-26] MEDS: CARVEDILOL 3.125 MG TABLET PO SCH (20:51)
[2022-10-27] VITALS: BP 110/88; PULSE 88; RESP 18; TEMP 97.9
[2022-10-27 04:00] VITALS: BP 128/74; PULSE 67; RESP 18; TEMP 98.1
[2022-10-27] MEDS: HYDROCODONE/ACETAMINOPHEN 10/325MG TABLET PO PRN ×2 (05:06→14:32)
[2022-10-27 08:00] VITALS: BP 104/68; PULSE 72; RESP 18; TEMP 98
[2022-10-27] MEDS: CARVEDILOL 3.125 MG TABLET PO SCH (08:49)
[2022-10-27 12:00] VITALS: BP 100/81; PULSE 111; RESP 20; TEMP 98.3
[2022-10-27 16:00] VITALS: BP 112/65; PULSE 60; RESP 18; TEMP 98.1
[2022-10-27 16:16] VITALS: BP 112/65; PULSE 60; TEMP 98.1; O2SAT 98
== END 2022-10-27 16:55 | disposition home or self-care (01) | DRG 48 ==
LOC: ER 21:12 → MICUSO 10-26 02:08 → 8WST 10-26 09:06
PROVIDERS: ADMIT Internal Medicine; ATTEND Internal Medicine
DX: G90.8 Other disorders of autonomic nervous system (principal); D69.6 Thrombocytopenia, unspecified; I42.9 Cardiomyopathy, unspecified; E44.1 Mild protein-calorie malnutrition; N17.9 Acute kidney failure, unspecified; E87.1 Hypo-osmolality and hyponatremia; I48.20 Chronic atrial fibrillation, unspecified; M25.571 Pain in right ankle and joints of right foot; I11.0 Hypertensive heart disease with heart failure; I50.22 Chronic systolic (congestive) heart failure; D64.9 Anemia, unspecified; I37.1 Nonrheumatic pulmonary valve insufficiency; F41.9 Anxiety disorder, unspecified; R77.8 Other specified abnormalities of plasma proteins; J44.9 Chronic obstructive pulmonary disease, unspecified; R29.6 Repeated falls; F14.10 Cocaine abuse, uncomplicated; Z68.24 Body mass index [BMI] 24.0-24.9, adult; Z86.73 Personal history of transient ischemic attack (TIA), and cerebral infarction without residual deficits; Z83.3 Family history of diabetes mellitus; Z82.49 Family history of ischemic heart disease and other diseases of the circulatory system; Z79.899 Other long term (current) drug therapy
CPT/HCPCS: 36415; 71045; 73600; 80053; 80305; 80320; 81003; 82140; 83605; 83880; 84484; 85025; 93005; 97162; 99291; J7030; G0480

== ENCOUNTER 2022-10-31 16:09 | Emergency (ER) | payer MEDICAID, OTHER ==
[~2022-10-31] VITALS: Ht 177.8 cm; Wt 90.0 kg
[2022-10-31 16:34] VITALS: TEMP 97.9; O2SAT 99
[2022-10-31] MEDS ORDERED: SODIUM CHLORIDE 0.9% 1,000 ML IV ONE (17:45)
[2022-10-31 18:06] LABS: HEMATOCRIT. 35.2 % (42.0-52.0); HEMOGLOBIN. 11.5 g/dL (14.0-18.0); MEAN CORPUSCULAR HEMOGLOBIN 33.4 pg (28.0-32.0); MEAN CORPUSCULAR VOLUME 101.8 fL (80.0-94.0); MEAN PLATELET VOLUME 8.6 fl (7.4-10.4); PLATELET 190 x1000/uL (130-400); RED BLOOD CELL COUNT 3.46 mill/uL (4.7-6.1); RED CELL DISTRIBUTION WIDTH 17.5 % (11.6-14.6)
[2022-10-31 18:17] LABS: CHLORIDE 107 mEq/L (98-107)
[2022-10-31] MEDS ORDERED: KETOROLAC 15MG/ML VIAL IV ONE (18:30)
[2022-10-31 18:37] LABS: INR 1.2; PARTIAL THROMBOPLASTIN TIME 28.8 sec (23.4-31.0); PROTHROMBIN TIME 13.1 sec (9.6-11.0)
[2022-10-31] MEDS ORDERED: ASPIRIN 325MG EC TABLET PO ONE (19:15)
[2022-10-31 20:43] LABS: NUCLEATED RED BLOOD CELLS 1 /100 WBC; PLATELET ESTIMATE NORMAL
[2022-10-31] MEDS ORDERED: KETOROLAC 15MG/ML VIAL IV NR (21:00)
[2022-10-31 22:40] VITALS: BP 136/87; PULSE 90; RESP 18
== END 2022-10-31 23:34 | disposition short-term general hospital (02) ==
LOC: ER 16:09
DX: R29.810 Facial weakness (principal); R77.8 Other specified abnormalities of plasma proteins; J44.1 Chronic obstructive pulmonary disease with (acute) exacerbation; I11.0 Hypertensive heart disease with heart failure; I50.9 Heart failure, unspecified; E78.00 Pure hypercholesterolemia, unspecified; Z86.73 Personal history of transient ischemic attack (TIA), and cerebral infarction without residual deficits; Z79.82 Long term (current) use of aspirin; Z79.899 Other long term (current) drug therapy
CPT/HCPCS: 80053; 83880; 85025; 85610; 85730; 84484; 36415; 71045; 73610; 70450; 93005; 96361; 96374; 99285; J1885; J7030; Z7610

== ENCOUNTER 2022-11-06 09:46 | Emergency (ER) | payer OTHER ==
[~2022-11-06] VITALS: Ht 188 cm; Wt 96.0 kg
[2022-11-06 09:54] VITALS: O2SAT 96
[2022-11-06 10:52] LABS: CHLORIDE 109 mEq/L (98-107)
[2022-11-06 10:59] LABS: HEMATOCRIT. 35.7 % (42.0-52.0); MEAN CORPUSCULAR HEMOGLOBIN 33.8 pg (28.0-32.0); MEAN CORPUSCULAR VOLUME 100.5 fL (80.0-94.0); MEAN PLATELET VOLUME 7.5 fl (7.4-10.4); PLATELET 395 x1000/uL (130-400); RED BLOOD CELL COUNT 3.55 mill/uL (4.7-6.1); RED CELL DISTRIBUTION WIDTH 17.5 % (11.6-14.6)
[2022-11-06 11:05] LABS: ETHANOL BLOOD 18 mg/dL (-10)
[2022-11-06 11:22] LABS: PLATELET ESTIMATE NORMAL
[2022-11-06] MEDS ORDERED: ACETAMINOPHEN 325MG TABLET PO ONE (12:30)
[2022-11-06] MEDS ORDERED: ASPIRIN 81MG TABLET PO ONE (16:45)
[2022-11-06] MEDS ORDERED: FUROSEMIDE 40MG/4ML VIAL IV ONE (16:45)
[2022-11-06 19:36] LABS: CLARITY URINE CLEAR (CLEAR); COLOR URINE YELLOW (YELLOW); KETONES URINE NEGATIVE (NEGATIVE); LEUKOCYTE ESTERASE URINE NEGATIVE (NEGATIVE); NITRITE URINE NEGATIVE (NEGATIVE); OCCULT BLOOD URINE NEGATIVE (NEGATIVE); PROTEIN URINE NEGATIVE (NEGATIVE); SPECIFIC GRAVITY URINE 1.008 (1.005-1.030); UROBILINOGEN URINE 0.2 E.U./dL (0.2-1.0)
[2022-11-06 19:45] LABS: *AMPHETAMINES SCREEN URINE NEGATIVE (NEGATIVE); *BARBITURATES SCREEN URINE NEGATIVE (NEGATIVE); *BENZODIAZEPINES SCREEN URINE NEGATIVE (NEGATIVE); *COCAINE SCREEN URINE NEGATIVE (NEGATIVE); CANNABINOID URINE SCREEN NEGATIVE (NEGATIVE); METHADONE URINE SCREEN NEGATIVE (NEGATIVE); OPIATES URINE SCREEN NEGATIVE (NEGATIVE); PHENCYCLIDINE URINE SCREEN NEGATIVE (NEGATIVE)
[2022-11-06 19:46] VITALS: BP 136/98; PULSE 94; RESP 26; TEMP 99
== END 2022-11-06 20:05 | disposition short-term general hospital (02) ==
LOC: ER 09:46 → CANBEDREQ 15:47 → ER 20:05
DX: R07.89 Other chest pain (principal); R77.8 Other specified abnormalities of plasma proteins; I11.0 Hypertensive heart disease with heart failure; I50.9 Heart failure, unspecified; I48.91 Unspecified atrial fibrillation; E78.00 Pure hypercholesterolemia, unspecified; Z86.73 Personal history of transient ischemic attack (TIA), and cerebral infarction without residual deficits; I25.10 Atherosclerotic heart disease of native coronary artery without angina pectoris; Z20.822 Contact with and (suspected) exposure to COVID-19
CPT/HCPCS: 80053; 80305; 81003; 80320; 83880; 85025; 84484; 36415; 71045; 93970; 93005; 96374; 99285; 87426; Z7610 ×2; J1940; C9803; G0480

== ENCOUNTER 2023-01-19 19:43 | Emergency (ER) | payer OTHER ==
[~2023-01-19] VITALS: Ht 190.5 cm; Wt 91.0 kg
[~2023-01-19 19:43] MED LIST changes: +APIX5TAB PO; +ATOR-2 PO; +CARV6.2548 PO; -COR3 PO; -DILT240C96 MT; +EMPA10TA PO; -FAMO40TA7 PO; -FURO20TA4 MT; +FURO20TA4 PO; -GABA-532 PO; -LACT10SO7 PO; -MULT-230 MT; +SACU1TAB PO; +SPIR25TA6 PO
[2023-01-19 19:50] VITALS: O2SAT 95
[2023-01-20 05:55] VITALS: BP 125/74; PULSE 84; RESP 16; TEMP 98.1
== END 2023-01-20 06:06 | disposition home or self-care (01) ==
LOC: ER 19:43
DX: F10.229 Alcohol dependence with intoxication, unspecified (principal); I11.0 Hypertensive heart disease with heart failure; I50.9 Heart failure, unspecified; I48.91 Unspecified atrial fibrillation; I25.10 Atherosclerotic heart disease of native coronary artery without angina pectoris; E78.00 Pure hypercholesterolemia, unspecified; Z86.73 Personal history of transient ischemic attack (TIA), and cerebral infarction without residual deficits; Y90.0 Blood alcohol level of less than 20 mg/100 ml
CPT/HCPCS: 99284

== ENCOUNTER 2023-06-14 13:21 | Emergency (ER) | payer MEDICAID, OTHER ==
[~2023-06-14] VITALS: Ht 172.7 cm; Wt 70.0 kg
[~2023-06-14 13:21] MED LIST changes: -EMPA10TA PO; -FOLI-43 PO; +FURO-151 MT; +MAGN400T26 MT; +POTA-205 MT; +SPIR25TA6 MT
[2023-06-14 13:26] VITALS: O2SAT 100
[2023-06-14 14:12] VITALS: BP 119/80; PULSE 87; RESP 15; TEMP 98.5
[2023-06-14 15:27] LABS: BASOPHILS % 0.9 % (0.0-2.0); EOSINOPHILS % 0.7 % (0.0-5.0); HEMATOCRIT. 40.1 % (42.0-52.0); HEMOGLOBIN. 13.8 g/dL (14.0-18.0); LYMPHOCYTES % 15.9 % (20.0-50.0); MEAN CORPUSCULAR HEMOGLOBIN 34.2 pg (28.0-32.0); MEAN CORPUSCULAR HGB CONC 34.4 g/dL (31.0-37.0); MEAN CORPUSCULAR VOLUME 99.3 fL (80.0-94.0); MEAN PLATELET VOLUME 7.9 fl (7.4-10.4); MONOCYTES % 9.2 % (2.0-8.0); NEUTROPHILS % 73.3 % (40.0-76.0); PLATELET 224 x1000/uL (130-400); RED BLOOD CELL COUNT 4.03 mill/uL (4.7-6.1); RED CELL DISTRIBUTION WIDTH 14.1 % (11.6-14.6); WHITE BLOOD COUNT 8.2 x1000/uL (4.5-11.0)
[2023-06-14 15:42] LABS: ALANINE AMINOTRANSFERASE 16 IU/L (10-49); ALBUMIN 4.1 g/dL (3.2-4.8); ASPARTATE AMINOTRANSFERASE 19 IU/L (<34); BILIRUBIN TOTAL 0.4 mg/dL (0.1-1.0); CALCIUM 8.7 mg/dL (8.7-10.4); CARBON DIOXIDE 26 mEq/L (21-32); CHLORIDE 102 mEq/L (98-107); CREATININE 0.8 mg/dL (0.6-1.3); ETHANOL BLOOD 246 mg/dL (<10); GLUCOSE 96 mg/dL (70-105); POTASSIUM 3.5 mEq/L (3.5-5.1); PROTEIN TOTAL 6.6 g/dL (6.0-8.3); SODIUM 137 mEq/L (136-145); UREA NITROGEN BLOOD 14 mg/dL (9-23)
[2023-06-14 16:30] LABS: INR 1.1; PROTHROMBIN TIME 11.8 sec (9.6-11.0)
== END 2023-06-14 18:37 | disposition home or self-care (01) ==
LOC: ER 13:21
DX: F10.129 Alcohol abuse with intoxication, unspecified (principal); E78.00 Pure hypercholesterolemia, unspecified; J44.1 Chronic obstructive pulmonary disease with (acute) exacerbation; I11.0 Hypertensive heart disease with heart failure; I50.9 Heart failure, unspecified; Z79.899 Other long term (current) drug therapy; Z86.73 Personal history of transient ischemic attack (TIA), and cerebral infarction without residual deficits; Y90.8 Blood alcohol level of 240 mg/100 ml or more
CPT/HCPCS: 36415; 80053; 80320; 85025; 99283; G0480